=== PATIENT | female | born 1955 | race Caucasian/White ===

== ENCOUNTER → 2022-04-07 10:01 | Outpatient (REF) | payer MEDICARE, OTHER, SELFPAY | LOC: HO.SL 10:01 | PROVIDERS: PCP Internal Medicine; Visit Provider Internal Medicine | DX: Z13.89 Encounter for screening for other disorder (principal) ==

== ENCOUNTER 2022-04-07 10:23 | Outpatient (REF) | payer MEDICARE, OTHER, SELFPAY ==
--- NOTE | ~2022-04-07 | MM_ITS ---
EXAMINATION: MM SCREENING DIGITAL BREAST TOMOSYNTHESIS, BILATERAL CLINICAL INFORMATION: Screening. Asymptomatic. Family history breast cancer, daughter. The lifetime risk of breast cancer based on the Tyrer-Cuzick Model is 8%. COMPARISON: Mammography: 09/13/2016, 05/10/2013 TECHNIQUE: Digital breast tomosynthesis is performed in both the craniocaudal and mediolateral oblique views along with computer-aided detection (CAD). Synthesized 2D images are generated from the tomosynthesis. FINDINGS: The breasts are heterogeneously dense, which may obscure small masses (ACR BI-RADS breast composition Category c). Parenchymal pattern shows no interval mass or architectural abnormality or developing density. There is a dermal lesion overlying the mid upper right breast. No suspicious calcifications. There are chronic loosely grouped calcifications in the 12:00 left breast. No significant changes. MM/MM tomosynthesis screening BI IMPRESSION: No mammographic evidence of malignancy. ASSESSMENT: BI-RADS 2: Benign RECOMMENDATION: Routine annual mammography screening. This patient's information was entered into a reminder system with a target due date for their next mammogram.
--- NOTE | ~2022-04-07 | MM_ITS ---
EXAMINATION: BONE DENSITOMETRY CLINICAL INDICATION: Menopause. COMPARISON: Previous BD dated 08/27/2016 and baseline BD dated 05/10/2013. TECHNIQUE: Using a [employer] DXA System (software version: 13.1) manufactured by [employer], dual-energy x-ray absorptiometry was performed of the lumbar spine and left hip. The images are of good technical quality. Summary results are attached. FINDINGS: AP SPINE L1-L4: Current: BMD 0.801 g/cm2, Z-score -1.2, T-score -3.2, osteoporosis, 6.9% increase from previous, 0.5% decrease from baseline (<5% change is not significant). Prior: BMD 0.749 g/cm2. Baseline: BMD 0.805 g/cm2. LEFT FEMUR, NECK: Current: BMD 0.643 g/cm2, Z-score -1.1, T-score -2.8, osteoporosis. Prior: BMD 0.665 g/cm2. Baseline: BMD 0.667 g/cm2. LEFT FEMUR, TOTAL: Current: BMD 0.621 g/cm2, Z-score -1.6, T-score -3.1, osteoporosis, 1.3% decrease from previous, 4.3% decrease from baseline (<5% change is not significant). Prior: BMD 0.629 g/cm2. Baseline: BMD 0.649 g/cm2. IDENTIFIED RISK FACTORS: Osteoporosis, renal, tobacco use (current smoker), recurrent falls, height loss, low body weight, low calcium intake, history of fracture (adult), menopause. HISTORY OF FRACTURE: Other. MEDICATIONS: Bisphosphonate. MM/XR DEXA axial skeleton IMPRESSION: 1. DIAGNOSIS: Osteoporosis based on the lowest T-score value of -3.2 in the lumbar spine applying World Health Organization criteria. 2. 10-YEAR FRACTURE RISK PREDICTION, FRAX: Major osteoporotic fracture (clinical spine, forearm, hip or shoulder) 24.2%. Hip fracture 10.5%. 3. Treatment Recommendations: NOF guidelines recommend consideration for treatment in postmenopausal women and men age 50 and older presenting with the following: -A hip or vertebral (clinical or morphometric) fracture. -T-score less than or equal to -2.5 at the femoral neck or spine after appropriate evaluation to exclude secondary causes. -Low bone mass at the hip or spine and a 10-year fracture probability by FRAX of greater than or equal to 3% for hip fracture or greater than or equal to 20% for major osteoporotic fracture based on the [place] adapted WHO algorithm. 4. Other Recommendations: All treatment decisions require clinical judgment and consideration of individual patient factors, including patient preferences, comorbidities, previous drug use, risk factors not captured in the FRAX model (e.g. frailty, falls, vitamin D deficiency, increased bone turnover, interval significant decline in bone density) and possible under or overestimation of fracture risk by FRAX. Additional medical evaluation for secondary cause of low bone mineral density may be appropriate. FUTURE SCAN RECOMMENDATION: People with diagnosed cases of osteoporosis or at high risk for fracture should have regular bone mineral density tests. For patients eligible for Medicare, routine testing is allowed once every 2 years. The testing frequency can be increased to one year for patients who have rapidly progressing disease, those who are receiving or discontinuing medical therapy to restore bone mass, or have additional risk factors.
== END 2022-04-07 10:24 | disposition home or self-care (01) ==
LOC: HO.MAMMO 10:23
PROVIDERS: PCP Internal Medicine; Visit Provider Internal Medicine
DX: Z12.31 Encounter for screening mammogram for malignant neoplasm of breast (principal); Z13.820 Encounter for screening for osteoporosis; Z78.0 Asymptomatic menopausal state
CPT/HCPCS: 77063; 77067; 77080

== ENCOUNTER 2023-04-08 10:26 | Outpatient (REF) | payer MEDICARE, SELFPAY ==
--- NOTE | ~2023-04-08 | US_ITS ---
EXAMINATION: US RETROPERITONEAL LIMITED (RENAL ONLY) CLINICAL INFORMATION: Chronic kidney disease, stage 3. COMPARISON: CT abdomen and pelvis 02/20/2018. Renal ultrasound 12/15/2017. TECHNIQUE: Real-time imaging of the kidneys. FINDINGS: RIGHT KIDNEY: 10.2 x 3.9 x 5.8 cm (SAG x AP x TRV). The kidney is normal in size, contour, and echogenicity. Renal cortical thickness is normal. No calculi or focal parenchymal lesions. Pelviectasis without dana hydronephrosis decreased from prior ultrasound. LEFT KIDNEY: 8.6 x 4.1 x 3.6 cm (SAG x AP x TRV). Atrophic and echogenic with cortical thinning. No hydronephrosis. Subcentimeter benign-appearing renal cyst, no follow-up imaging recommended. 5 mm nonobstructing lower pole renal stone previously 3mm. US/US renal BI IMPRESSION: 1. Right renal pelviectasis without dana hydronephrosis decreased from prior ultrasound. 2. Atrophic and echogenic left kidney with cortical thinning which can be seen in the setting of chronic medical renal disease. 3. A 5 mm nonobstructing left lower pole renal stone increased in size from prior recent.
== END 2023-04-08 10:27 | disposition home or self-care (01) ==
LOC: HO.US 10:26
PROVIDERS: PCP Internal Medicine; Visit Provider Internal Medicine Nephrology
DX: N18.32 Chronic kidney disease, stage 3b (principal)
CPT/HCPCS: 76775

== ENCOUNTER 2023-05-03 06:41 | Outpatient (REF) | payer MEDICARE, SELFPAY ==
[2023-05-05 09:39] LABS: Calcium (PTHI) 8.4 mg/dL (8.6-10.4); PTHI 83 pg/mL (16-77)
== END 2023-05-03 06:42 | disposition home or self-care (01) ==
LOC: HO.LAB 06:41
PROVIDERS: PCP Internal Medicine; Visit Provider Internal Medicine Nephrology
DX: I12.9 Hypertensive chronic kidney disease with stage 1 through stage 4 chronic kidney disease, or unspecified chronic kidney disease (principal); N18.32 Chronic kidney disease, stage 3b
CPT/HCPCS: 36415; 80051; 81001; 81003; 82040; 82043; 82306; 82310; 82565; 82570; 83735; 83970; 84100; 84156; 84520; 85025

== ENCOUNTER 2023-05-27 10:20 | Outpatient (REF) | payer MEDICARE, SELFPAY ==
--- NOTE | ~2023-05-27 | XR_ITS ---
EXAMINATION: XR LUMBOSACRAL SPINE CLINICAL INFORMATION: Low back pain radiating to the right gluteal region COMPARISON: None available. TECHNIQUE: Three views of the lumbosacral spine. FINDINGS: The visualized lumbar vertebrae are intact with normal alignment. Intervertebral disc spaces are normal. XR/XR lumbar spine 2-3V IMPRESSION: 1. Normal lumbosacral spine x-ray. 2. No fracture or dislocation of lumbar spine is seen.
== END 2023-05-27 10:21 | disposition home or self-care (01) ==
LOC: HO.HMGCX 10:20
PROVIDERS: PCP Internal Medicine; Visit Provider Internal Medicine
DX: M54.50 Low back pain, unspecified (principal)
CPT/HCPCS: 72100

== ENCOUNTER 2023-10-20 10:16 | Outpatient (REF) | payer MEDICARE, SELFPAY ==
[2023-10-20 10:37] LABS: MANUAL DIFF FLAG NO
[2023-10-20 11:04] LABS: Appearance Urine Cloudy; Color Urine Dark Yellow; Glucose Urine UA Negative (Negative); Leukocyte Esterase Urine Small (1+) (Negative); Nitrite Urine Negative (Negative); PH 6.5 (5.0-9.0); UMIC TRIGGER UA YES; Urine Blood Negative (Negative); Urine Ketones Trace mg/dL (Negative); Urine Protein Negative (Neg-Trace)
[2023-10-20 11:05] LABS: Basophils Absolute Auto 0.1 X10*3/uL (0.0-0.2); Basophils Percent Auto 0.8 % (0-2); Eosinophils Absolute Auto 0.2 X10*3/uL (0.0-0.4); Hematocrit 38.3 % (37.0-47.0); Hemoglobin 12.5 g/dl (12.0-16.0); Imm Gran Abs Auto 0.03 X10*3/uL (0.00-0.03); Imm Gran Pct Auto 0.4 % (0.0-0.4); Lymphocytes Absolute Auto 2.3 X10*3/uL (1.2-4.9); Lymphocytes Percent Auto 31.8 % (20-40); Mean Corpuscular HGB Conc 32.6 g/dl (31.0-35.0); Mean Corpuscular Hemoglobin 30.6 pg (27.0-33.0); Mean Corpuscular Volume 93.9 fL (80.0-98.0); Mean Platelet Volume 8.6 fL (9.4-12.3); Monocytes Absolute Auto 0.6 X10*3/uL (0.1-1.2); Monocytes Percent Auto 7.8 % (2-11); Neutrophils Absolute Auto 4.1 x10*3/uL (2.0-8.3); Neutrophils Percent Auto 56.2 % (45-73); Platelet Count 263 X10*3/uL (160-400); Red Blood Count 4.08 X10*6/uL (4.20-5.50); Red Cell Distribution Width 14.4 % (11.0-16.0); White Blood Count 7.3 X10*3/uL (4.8-10.8)
[2023-10-20 11:22] LABS: Bacteria Urine 1+ (None Seen); Hyaline Casts Urine 0-2 /LPF (0-2); RBC Urine 0-2 /HPF (0-2); WBC Urine 0-5 /HPF (0-5)
[2023-10-20 11:39] LABS: Creatinine Urine 127.18 mg/dL; Microalbum/Creatinine Ratio Ur 5.5 ug/mg cr (<30); Total Protein Urine Random 11 mg/dL (<12)
[2023-10-20 11:45] LABS: Parathyroid Hormone Intact 78.8 pg/mL (8.7-77.1)
[2023-10-20 11:50] LABS: Albumin Level 3.8 g/dL (3.5-5.0); Anion Gap 12 (12-20); Blood Urea Nitrogen 15 mg/dL (9-16); Carbon Dioxide 28 mmol/L (22-29); Chloride 107 mmol/L (96-108); Estimated Glomerular Filt Rate 41; Magnesium 2.2 mg/dL (1.6-2.6); Phosphorus 3.2 mg/dL (2.7-4.5); Potassium 4.5 mmol/L (3.3-5.1); Sodium 142 mmol/L (135-145)
[2023-10-20 11:59] LABS: Vitamin D 25-OH Total 33.8 ng/mL (>30)
== END 2023-10-20 10:17 | disposition home or self-care (01) ==
LOC: HO.LAB 10:16
PROVIDERS: PCP Internal Medicine; Visit Provider Internal Medicine Nephrology
DX: I13.0 Hypertensive heart and chronic kidney disease with heart failure and stage 1 through stage 4 chronic kidney disease, or unspecified chronic kidney disease (principal); I50.9 Heart failure, unspecified; N25.0 Renal osteodystrophy; N18.32 Chronic kidney disease, stage 3b
CPT/HCPCS: 36415; 80051; 81001; 81003; 82040; 82043; 82306; 82310; 82565; 82570; 83735; 83970; 84100; 84156; 84520; 85025

== ENCOUNTER 2024-04-27 08:28 | Outpatient (REF) | payer MEDICARE, SELFPAY ==
--- NOTE | ~2024-04-27 | XR_ITS ---
EXAMINATION: XR HIP RIGHT 2 VIEWS CLINICAL INFORMATION: Right hip pain. COMPARISON: CT Abdomen pelvis without contrast 02/20/2018 TECHNIQUE: Two views of the right hip. FINDINGS: No fracture identified. Alignment is anatomic. Hip joint space appears maintained. Soft tissues appear unremarkable. Mild arterial calcification. XR/XR hip RT min 2V IMPRESSION: Normal plain film examination of the right hip. Electronically signed by: Ja Sparrow MD 07/09/2024 10:08 AM [facility]
== END 2024-04-27 08:29 | disposition home or self-care (01) ==
LOC: HO.HMGCX 08:28
PROVIDERS: PCP Internal Medicine; Visit Provider Internal Medicine
DX: M25.551 Pain in right hip (principal)
CPT/HCPCS: 73502

== ENCOUNTER 2024-06-28 16:24 | Emergency (ER) | payer MEDICARE, SELFPAY ==
--- NOTE | ~2024-06-28 | XR_ITS ---
EXAMINATION: XR FOREARM, LEFT CLINICAL INFORMATION: deformity. fall COMPARISON: None available. TECHNIQUE: AP and lateral views of the left forearm were obtained. FINDINGS / XR/XR forearm LT 2V IMPRESSION: There is an impacted, comminuted transversely oriented fracture involving the distal radius. The radiocarpal joint appears maintained on these 2 views. No additional fracture is seen. There is mild soft tissue swelling. Electronically signed by: Speedy Oscar DO 06/28/2024 07:27 PM [facility] D[facility]N
--- NOTE | ~2024-06-28 | XR_ITS ---
EXAMINATION: XR WRIST, LEFT CLINICAL INFORMATION: post reduction COMPARISON: Wrist x-ray on 06/28/2024 TECHNIQUE: PA, lateral, and oblique views of the left wrist. FINDINGS: Interval reduction and casting of the distal radius fracture. Alignment is moderately improved. Casting material limits evaluation. XR/XR wrist LT 2V IMPRESSION: Interval reduction and casting of the distal radius fracture. Electronically signed by: Elinor Gallardo MD 06/28/2024 08:54 PM [facility]
--- NOTE | ~2024-06-28 | XR_ITS ---
EXAMINATION: XR WRIST, LEFT CLINICAL INFORMATION: fall. deformity COMPARISON: None available. TECHNIQUE: Four views of the left wrist. FINDINGS / XR/XR wrist LT min 3V IMPRESSION: There is a comminuted, mildly impacted transversely oriented fracture involving the distal radius. The distal fracture fragment is dorsally angulated in relation to the proximal fracture fragment. In addition there is a nondisplaced fracture involving the ulnar styloid. The osseous structures are diffusely demineralized. There is soft tissue swelling. Electronically signed by: Speedy Oscar DO 06/28/2024 07:29 PM EST
[2024-06-28 16:28] VITALS: BP 152/91; BP 161/94; PULSE 80; PULSE 85; RESP 16; TEMP 37; O2SAT 93; O2SAT 96; BMI 22.6
--- NOTE | 2024-06-28 17:30 | ED_ITS ---
HPI - Fall General Chief Complaint: Fall Stated Complaint: fall, L wrist deformity Time Seen by Provider: 06/28/24 17:10 Source: patient, family, EMS, RN notes reviewed and old records reviewed Mode of arrival: EMS History of Present Illness ED Provider: Pushpa Guerrero PA-C HPI Narrative: 68-year-old female with past medical history HTN, HLD, arthritis, bipolar, presenting to the ED via EMS complaining of left wrist pain and deformity s/p mechanical trip and fall at 02:00 at home. Patient states she was trying to get a snack, was opening a peanut butter and jelly cracker however Shantal got away from her causing her to slip and fall, catching self with LUE. Denies head trauma or LOC. denies anticoagulation use. Patient was unable to pull herself up off the floor due to wrist pain, was on floor from 02:00 until about 15:00 this afternoon. Patient lives home alone. Daughter concerned patient is over- medicating w/her Ambien and Melatonin to aid with sleeping which has been going on for some time. Patient with multiple falls recently per daughter. Denies headache, neck/back pain, CP/SOB, abdominal pain, numbness, tingling, weakness. Related Data Previous Rx's ?Medication ?Instructions ?Recorded oxycodone-acetaminophen 5 mg-325 1 tab PO Q8H PRN pain (scale score 06/28/24 mg tablet (Percocet) 7-10) 3 days #9 tabs Allergies Allergy/AdvReac Type Severity Reaction Status Date / Time No Known Allergies Allergy Unverified 06/28/24 16:35 Review of Systems 2 Review of Systems: Yes all other systems are reviewed and are negative Constitutional: Constitutional: Reports as per HPI Neurologic: Denies Abnormal speech present [facility] Past Medical History Attestation statement: The following information was validated with the patient. Source: old records reviewed Social History Social History Alcohol intake: former Smoked in Last 30 Days: Yes Use of substances other than those prescribed or required for medical reasons: No Advance Directives: No Advance Directives Information Provided: No Do you have a plan to hurt others: No Plan Physical Exam 2 Vital Signs: Vital Signs: Last Vital Signs Temp 98.6 F 06/28/24 16:28 Pulse 85 12/05/24 16:28 Resp 18 06/28/24 17:59 BP 152/91 H 06/28/24 16:28 Pulse Ox 93 06/28/24 16:28 O2 Del Method Room Air 06/28/24 16:28 BMI result Body Mass Index 22.6 Const: General: cooperative, healthy appearing and no acute distress O rientation/consciousness: patient oriented x3 Limitations: no limitations HEENT: Head: Yes normal to inspection and Yes atraumatic Ears: hearing grossly normal bilaterally General nose exam: Normal external nose present Face and sinus: Yes normal facial exam Eyes: General: appearance normal, both eyes and all related structures EOM: EOMs intact bilaterally Neck: Neck: Yes normal visual inspection and Yes no meningeal signs Resp: Effort & Inspection: normal respiratory effort and no respiratory distress Cardio: Rate: regular rate Peripheral pulses: Peripheral pulses 2+ throughout GI: Inspection: Yes normal to inspection Palpation (GI): Soft to palpation, nontender, no guarding and not rigid : General: Yes no CVA tenderness Back/Spine/Pelvis: Other: No midline cervical/thoracic/lumbar spinous tenderness/step-off or deformity Back: no CVA tenderness Skin: Rashes: no rashes Wounds: no wounds Neuro: General: patient oriented x3, tone normal, moves all extremities, no meningeal signs, no focal motor deficits and CN's II-XI intact bilaterally C ranial nerves: Yes CN's II-XII intact bilaterally and Yes Bilaterally intact EOM present Cognition (Neuro): normal cognition Speech: No Abnormal speech present Motor exam (neuro): 5/5 motor strength present throughout Extrem: Other: Left wrist with appreciable deformity. Swelling and ecchymosis noted to left forearm extending to hand. Limited ROM to extremity. Neurovascularly intact. Course Course Course Narrative: -1945--no leukocytosis. H/H is stable. Labs otherwise reassuring. CPK WNL XR wrist LT min 3V: There is a comminuted, mildly impacted transversely oriented fracture involving the distal radius. The distal fracture fragment is dorsally angulated in relation to the proximal fracture fragment. In addition there is a nondisplaced fracture involving the ulnar styloid. The osseous structures are diffusely demineralized. There is soft tissue swelling. XR forearm LT 2V IMPRESSION: There is an impacted, comminuted transversely oriented fracture involving the distal radius. The radiocarpal joint appears maintained on these 2 views. No additional fracture is seen. There is mild soft tissue swelling. > hematoma block performed and reduction attempted. Sugar-tong splint applied and sling XR wrist LT 2V IMPRESSION: Interval reduction and casting of the distal radius fracture. > offered PT/case management however patient not agreeable. States she will go live with her sister who will help her. Daughters comfortable with plan --ED care transferred to [facility] pending UA and anticipated discharge Medications Administered Discontinued Medications Generic Name Dose Route Start Last Admin Trade Name Freq PRN Reason Stop Dose Admin Fentanyl 25 mcg 06/28/24 17:29 06/28/24 17:59 Fentanyl Citrate/Pf 100 Mcg/2 Ml Vial IVPUSH 06/28/24 17:30 25 mcg ONCE ONE Administration Protocol Sodium Chloride 1,000 mls @ 999 mls/hr 06/28/24 17:30 06/28/24 19:20 Ns IV 06/28/24 18:30 Infused .Q1H1M IMAN Infusion Lidocaine HCl 5 ml 06/28/24 19:16 06/28/24 20:35 Lidocaine Hcl 1 % Mpf 5 Ml Vial INFILTRATI 06/28/24 19:17 5 ml ONCE ONE Administration Oxycodone HCl 5 mg 06/28/24 20:46 06/28/24 20:59 Oxycodone Hcl Immed Release 5 Mg Tablet PO 06/28/24 20:47 5 mg ONCE ONE Administration Procedures Orthopedic Fracture Reduction Fracture #1: Side: left Fracture Reduction Location: radius and ulna Analgesia: hematoma block Technique: direct manipulation and traction/counter-traction Post-reduction neuro exam: intact Post-reduction vascular exam: intact Splint Applied: Yes Patient Tolerated Procedure: well Medical Decision Making Medical Decision Making MDM Narrative: 68-year-old female with past medical history HTN, HLD, arthritis, bipolar, presenting to the ED via EMS complaining of left wrist pain and deformity s/p mechanical trip and fall at 02:00 at home was on floor from 02:00 until about 15:00 this afternoon. On exam vital signs stable, NAD, physical exam as noted above with appreciable left wrist deformity. No midline spinous tenderness throughout. No red flag symptoms or focal neuro deficits. Concern for wrist fracture vs rhabdomyolysis vs metabolic abnormalities. Rule out infectious etiology although lower suspicion. Concern for medication miss use/overuse Plan: EKG, labs, tox screen, x-ray, ?PT/CM if patient agreeable Please refer to course for remaining clinical decision making, interpretation of labs/imaging results, and discussions with consultants and/or family members. Differential Diagnosis Differential Diagnoses: The differential diagnosis associated with the presentation includes As above Admission/Observation Consideration of admission/observation: Escalation of care including admission/observation considered Lab Data MDM Lab Attestation statement: I reviewed the patient's lab results. 06/28/24 17:56 06/28/24 17:56 Labs: Lab Results 06/28/24 Range/Units 17:56 WBC 10.3 (4.8-10.8) X10*3/uL RBC 3.83 L (4.20-5.50) X10*6/uL Hgb 11.8 L (12.0-16.0) g/dl Hct 34.6 L (37.0-47.0) % MCV 90.3 (80.0-98.0) fL MCH 30.8 (27.0-33.0) pg MCHC 34.1 (31.0-35.0) g/dl RDW 13.0 (11.0-16.0) % Plt Count 224 (160-400) X10*3/uL MPV 8.7 L (9.4-12.3) fL Immature Gran % (Auto) 0.3 (0.0-0.4) % Neut % (Auto) 73.8 H (45-73) % Lymph % (Auto) 15.3 L (20-40) % Stone % (Auto) 9.0 (2-11) % Eos % (Auto) 1.0 (0-4) % Baso % (Auto) 0.6 (0-2) % Lymph # (Auto) 1.6 (1.2-4.9) X10*3/uL Stone # (Auto) 0.9 (0.1-1.2) X10*3/uL Eos # (Auto) 0.1 (0.0-0.4) X10*3/uL Baso # (Auto) 0.1 (0.0-0.2) X10*3/uL Abs Immat Gran (auto) 0.03 (0.00-0.03) X10*3/uL Absolute Neuts (auto) 7.6 (2.0-8.3) x10*3/uL Absolute Nucleated RBC 0.000 (0.0-0.012) X10*3/uL Nucleated RBC % (auto) 0.0 (0.0-0.2) /100WBC PT 11.3 (10.9-12.4) SEC INR 1.0 (0.9-1.1) Sodium 139 (135-145) mmol/L Potassium 3.7 (3.3-5.1) mmol/L Chloride 105 (96-108) mmol/L Carbon Dioxide 28 (22-29) mmol/L Anion Gap 10 L (12-20) BUN 9 (9-16) mg/dL Creatinine 1.13 (0.5-1.4) mg/dL Estim Creat Clear Calc 45.2 Estimated GFR 48 Random Glucose 117 H (60-115) mg/dL Calcium 8.6 (8.4-10.2) mg/dL Magnesium 2.0 (1.6-2.6) mg/dL Total Bilirubin 0.4 (0.0-1.0) mg/dL Direct Bilirubin 0.2 (0.0-0.5) mg/dL AST 15 (5-31) U/L ALT 6 (0-31) U/L Alkaline Phosphatase 76 (39-117) U/L Total Creatine Kinase 137 (26-140) U/L Total Protein 6.4 L (6.5-8.0) g/dL Albumin 3.7 (3.5-5.0) g/dL Ethyl Alcohol < 10 mg/dL Independent Interpretation I performed an independent interpretation of an: EKG and Plain X-Ray Radiology Impression Discussion of test interpretation with radiology: I have reviewed the radiologist's reading. Independent Historian Clinical information obtained from an independent historian. History obtained from or confirmed by: EMS and Other (daughter) External Record Review External record reviewed: Inpatient record, Office record, Outpatient record, Prior outpatient labs, Prior outpatient radiology, Primary care record and Outside ED record Tests considered The following testing was considered but not selected: As above Prescription Management I considered prescription management with: Other Chronic Conditions Patient?s care impacted by: Other Social Determinants Patient?s care significantly limited by Social Determinants of Health including: Problems related to primary support group and Other Social Determinant of Health Discharge Plan Discharge Clinical Impression: Fracture of wrist, Fall Patient Disposition: Home, Self-Care Instructions: Wrist Fracture in Adults (ED) Additional Instructions: You have a fracture of your left wrist, this was reduced and splinted in the emergency department You need to follow up with Orthopedics, please call to make an appointment in 1 week Use sling Ice and elevate Percocet as an opiate pain medication, take only when pain is severe for the next 3 days If you have recurrent falls, persistent or worsening pain, fingers become increasingly swollen, numb, discolored remove splint and return to the ED immediately Prescriptions: New oxycodone-acetaminophen [Percocet] 5-325 mg tablet 1 tab PO Q8H PRN (Reason: pain (scale score 7-10)) 3 Days Qty: 9 0RF Rx Instructions: Partial Fill upon patient request. Referrals: [facility] [place] Orth[facility] Surgeons [Provider Group] - 1 week Print Language: Guamanian
--- NOTE | 2024-06-28 17:38 | ECG_ITS ---
Test Reason : fall Blood Pressure : / mmHG Vent. Rate : 079 BPM Atrial Rate : 079 BPM P-R Int : 132 ms QRS Dur : 090 ms QT Int : 396 ms P-R-T Axes : 076 062 031 degrees QTc Int : 454 ms Normal sinus rhythm Normal ECG When compared with ECG of 14-MAY-2019 21:42, Nonspecific T wave abnormality now evident in Inferior leads Referred By: Pushpa Guerrero Electronically Signed By:Blue Rhodes
[2024-06-28 17:59] VITALS: RESP 18
[2024-06-28] MEDS: fentaNYL citrate/PF 100 MCG/2 ML VIAL 25 MCG IVPUSH (17:59)
[2024-06-28] MEDS: 0.9 % Sodium Chloride 1,000 ML 999 ML IV (18:00)
[2024-06-28 18:02] LABS: MANUAL DIFF FLAG NO
[2024-06-28 18:06] LABS: Basophils Absolute Auto 0.1 X10*3/uL (0.0-0.2); Basophils Percent Auto 0.6 % (0-2); Eosinophils Absolute Auto 0.1 X10*3/uL (0.0-0.4); Hematocrit 34.6 % (37.0-47.0); Hemoglobin 11.8 g/dl (12.0-16.0); Imm Gran Abs Auto 0.03 X10*3/uL (0.00-0.03); Imm Gran Pct Auto 0.3 % (0.0-0.4); Lymphocytes Absolute Auto 1.6 X10*3/uL (1.2-4.9); Lymphocytes Percent Auto 15.3 % (20-40); Mean Corpuscular HGB Conc 34.1 g/dl (31.0-35.0); Mean Corpuscular Hemoglobin 30.8 pg (27.0-33.0); Mean Corpuscular Volume 90.3 fL (80.0-98.0); Mean Platelet Volume 8.7 fL (9.4-12.3); Monocytes Absolute Auto 0.9 X10*3/uL (0.1-1.2); Neutrophils Absolute Auto 7.6 x10*3/uL (2.0-8.3); Neutrophils Percent Auto 73.8 % (45-73); Platelet Count 224 X10*3/uL (160-400); Red Blood Count 3.83 X10*6/uL (4.20-5.50); White Blood Count 10.3 X10*3/uL (4.8-10.8)
[2024-06-28 18:13] LABS: Prothrombin Time 11.3 SEC (10.9-12.4)
[2024-06-28 18:28] LABS: Alanine Aminotransferase 6 U/L (0-31); Albumin Level 3.7 g/dL (3.5-5.0); Alkaline Phosphatase 76 U/L (39-117); Anion Gap 10 (12-20); Aspartate Amino Transferase 15 U/L (5-31); Bilirubin Direct 0.2 mg/dL (0.0-0.5); Bilirubin Total 0.4 mg/dL (0.0-1.0); Blood Urea Nitrogen 9 mg/dL (9-16); Calcium 8.6 mg/dL (8.4-10.2); Carbon Dioxide 28 mmol/L (22-29); Chloride 105 mmol/L (96-108); Creatinine Clr Calc Pharmacy 45.2; Estimated Glomerular Filt Rate 48; Ethanol < 10 mg/dL; Glucose Random 117 mg/dL (60-115); Potassium 3.7 mmol/L (3.3-5.1); Sodium 139 mmol/L (135-145); Total Protein 6.4 g/dL (6.5-8.0)
--- NOTE | 2024-06-28 19:57 | MHC.EDTECH ---
This tech assisted TREY Barrow when applying sugar tong splint to left wrist. With orders from TREY, sling was provided and placed on pt with excellent tolerance.
[2024-06-28] MEDS: Lidocaine HCl 1 % MPF 5 ML VIAL INFILTRATI (20:35)
[2024-06-28] MEDS: oxyCODONE HCl Immed Release 5 MG TABLET PO (20:59)
[2024-06-28 21:50] LABS: Appearance Urine Clear; Color Urine Yellow; Glucose Urine UA Negative (Negative); Leukocyte Esterase Urine Trace (Negative); Nitrite Urine Negative (Negative); Specific Gravity - Urine <= 1.005 (1.005-1.025); UMIC TRIGGER UACC YES; Urine Blood Small (1+) (Negative); Urine Ketones Negative (Negative); Urine Protein Negative (Neg-Trace)
[2024-06-28 22:01] LABS: Bacteria Urine None Seen (None Seen); Hyaline Casts Urine 0-2 /LPF (0-2); Squamous Epithelial Cell Urine 0-2 /HPF (0-2); WBC Urine 0-5 /HPF (0-5)
[2024-06-28 22:06] LABS: Amphetamine Screen Urine Not Detected (Not Detect); Barbiturates, Urine Not Detected (Not Detect); Benzodiazepines Screen Urine Not Detected (Not Detect); Buprenorphine Scr Not Detected (Not Detect); Cannabinoid Screen Urine Not Detected (Not Detect); Cocaine Screen Urine Not Detected (Not Detect); Fentanyl, urine POSITIVE (Not Detect); Methadone Screen, Urine Not Detected (Not Detect); Opiate Screen Urine Not Detected (Not Detect); Oxycodone Screen Urine Not Detected (Not Detect); Phencyclidine Screen Urine Not Detected (Not Detect)
[2024-06-28 22:52] VITALS: BP 179/67; PULSE 81; RESP 16; TEMP 36.6; O2SAT 93
== END 2024-06-28 22:35 | disposition home or self-care (01) ==
PROVIDERS: Physician Assistant; Emergency Provider Emergency Medicine; PCP Internal Medicine
DX: S62.102A Fracture of unspecified carpal bone, left wrist, initial encounter for closed fracture (principal); M25.532 Pain in left wrist; M79.632 Pain in left forearm; R11.0 Nausea; I10 Essential (primary) hypertension; W01.0XXA Fall on same level from slipping, tripping and stumbling without subsequent striking against object, initial encounter; Y93.9 Activity, unspecified; Y92.098 Other place in other non-institutional residence as the place of occurrence of the external cause; Y99.8 Other external cause status; Z51.81 Encounter for therapeutic drug level monitoring; Z79.899 Other long term (current) drug therapy
CPT/HCPCS: 29125; 36415; 73090; 73100; 73110; 80048; 80076; 80307; 81001; 82550; 83735; 85025; 85610; 93005; 96361; 96374; 99284; 99285; J2003; J3010

== ENCOUNTER → 2024-06-28 17:38 | Outpatient (BNV) | payer MEDICARE, SELFPAY | PROVIDERS: Emergency Provider Emergency Medicine; PCP Internal Medicine; Visit Provider Internal Medicine Cardiovascular Disease | DX: R26.81 Unsteadiness on feet (principal) | CPT/HCPCS: 93010 ==

== ENCOUNTER 2024-07-03 09:16 | Outpatient (REF) | payer MEDICARE, SELFPAY ==
--- NOTE | ~2024-07-03 | XR_ITS ---
EXAMINATION: XR WRIST LEFT CLINICAL INFORMATION: Pain in left wrist M25.532. COMPARISON: XR Left wrist 06/28/2024 TECHNIQUE: PA, lateral, and oblique views of the left wrist. FINDINGS: Casting material limits evaluation.. Redemonstrated distal radial fracture, with similar position and alignment. There appears to be callus formation. Ulnar positive variance. No new acute fractures identified. XR/XR wrist LT min 3V IMPRESSION: Distal radial fracture with apparent callus formation. Study is assigned/presented to me for interpretation on Aug 09, 2024 Electronically signed by: Juan Goodman MD 08/09/2024 09:25 AM L[facility]
== END 2024-07-03 09:17 | disposition home or self-care (01) ==
LOC: HO.HOSX 09:16
PROVIDERS: Visit Provider Orthopaedic Surgery
DX: M25.532 Pain in left wrist (principal); S52.502D Unspecified fracture of the lower end of left radius, subsequent encounter for closed fracture with routine healing; S52.615D Nondisplaced fracture of left ulna styloid process, subsequent encounter for closed fracture with routine healing
CPT/HCPCS: 73110; 99202

== ENCOUNTER 2024-07-03 09:47 | Outpatient (AMB) | payer MEDICARE, SELFPAY ==
--- NOTE | 2024-07-03 09:57 | MHC.OFFVIS ---
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 Seen in ED on 06/28/24 s/p tripping and falling at home. As per ED noted patient was trying to get a snack, was opening a peanut butter and jelly cracker and slipped on the cracker wrapper causing her to slip and fall, catching self with LUE. Patient was unable to pull herself up off the floor due to wrist pain. Xrays taken in ED, reduced and hand was splinted. Currently states she has mild pain, bruising and swelling. Denies numbness or tingling. Hx of HTN, HLD, arthritis, bipolar. 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 She was seen in the ED where this was reduced & splinted. 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 She lives alone, but currently is residing with her sister after her fall. She presents today with complaints of some pain in her wrist. She denies any numbness or tingling She is seen in a Sugar-tong splint today, extending past her MCP joints She has a Hx of arthritis & bipolar disorder. She reports issues with her kidney function and says this is managed by a feeder/folder. She says she takes Ambien, trazodone, Hydroxyzine, and Melatonin at night due to insomnia. She says these were prescribed by her Psychiatrist, and her PCP is aware of what she is taking. 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 Review of Systems Const All systems reviewed & are unremarkable except as noted in HPI and below Physical Exam Vital Signs: BMI result Body Mass Index 22.6 Const General: cooperative, healthy appearing and no acute distress Orientation/consciousness: patient oriented x3 HEENT Head: Yes normocephalic and Yes atraumatic Eyes EOM: EOMs intact bilaterally Resp Effort & Inspection: normal respiratory effort and able to speak in complete sentences Cardio Jugular venous distension: no JVD Skin General skin exam: turgor normal Rashes: no rashes Neuro General: patient oriented x3 Extrem Other: Evaluation of Left Upper Extremity: The patient is alert, oriented, and in no acute distress She is in her sugar-tong splint which is clean dry and intact. Neuro: Sensation intact to the tips of all digits. Vascular: Cap refill brisk ROM: She can actively flex and extend her fingers in the sugar-tong splint which appears to extend past the MCP joints. Radiographs: 3 views of the left wrist were taken, viewed, and compared to post-reduction radiographs from 06/28/24. They show a distal radius fracture with ~35 degrees apex volar angulation, shortening, and loss of radial inclination. She also has a non-displaced ulnar styloid fracture. Psych Appearance: grossly normal Affect: normal affect Attitude: cooperative Assessment & Plan Assessment & Plan (1) Fracture of left distal radius: Code(s): S52.502A - Unspecified fracture of the lower end of left radius, initial encounter for closed fracture Category: Medical (2) Nondisplaced fracture of styloid process of left ulna: Code(s): S52.615A - Nondisplaced fracture of left ulna styloid process, initial encounter for closed fracture Category: Medical Plan Assessment & Plan: 1. Left distal radius fracture From a fall, DOI: 06/28/24 2. Left ulnar styloid fracture, non-displaced I educated her about this condition I discussed operative and non-operative treatment options I recommend surgery, and she is in agreement She will remain in her sugar-tong splint until her DOS. The risks and benefits of operative treatment were discussed with the patient and the patient wishes to proceed with surgery. These risks include, but are not limited to risk of damage to blood vessels, nerves, tendons, infection, recurrence, incomplete relief of preoperative symptoms, persistent pain, possible need for further surgery and the risks associated with regional blocks and anesthesia. The plan is to take the patient to the operating room sometime on 07/09/24 for the following procedures: 1. Left distal radius ORIF, under general All of the preoperative paperwork including the consent was reviewed today. All the patient's questions were answered. The patient understands that they will be contacted by our yield clerk soon to schedule this procedure She denies Diabetes, blood thinners, asthma, heart, lung issues She has a Hx of Bipolar disorder, and she says she currently has ~40% kidney function, etiology unclear. She follows with Nephrology for this, and is unable to use NSAIDs. Scribed for Kati Templeton MD by Rafael Contreras, medical radiation therapist, on 07/03/24 at 10:30 AM, EST. Orders: Orders XR wrist LT min 3V Today M25.532 - Pain in left wrist Coding Level of Care Code New Pt Level 4 (67774) Diagnoses Fracture of left distal radius S52.502A Nondisplaced fracture of styloid process of left ulna S52.615A
[2024-07-03 10:00] VITALS: BMI 22.6
== END 2024-07-03 10:43 | disposition home or self-care (01) ==
PROVIDERS: PCP Internal Medicine; Visit Provider Orthopaedic Surgery
DX: S52.502A Unspecified fracture of the lower end of left radius, initial encounter for closed fracture (principal); S52.615A Nondisplaced fracture of left ulna styloid process, initial encounter for closed fracture
CPT/HCPCS: 99204

== ENCOUNTER 2024-07-09 10:59 | Day surgery (SDC) | payer MEDICARE, SELFPAY ==
[2024-07-06 06:20] VITALS: BMI 22.6
[2024-07-09] VITALS (8 sets, daily range): BP systolic 138–158; BP diastolic 64–78; PULSE 68–86; RESP 16–18; TEMP 36.4–37.3; O2SAT 94–99
[2024-07-09] MEDS: Lactated Ringers 1,000 ML 100 ML IVCONT (11:28)
[2024-07-09] MEDS: Albuterol Sulfate (0.083%) 2.5 MG/3 ML VIAL.NEB INHALE (12:00)
--- NOTE | 2024-07-09 12:10 | P.CONAN_ITS ---
Documented by User: Michelle Smith NP 07/05/24 14:30 HPI - Anesthesia Eval Consult details Narrative: 68yo F for Left Radius Distal Fracture ORIF PMFSH Active Problems Active Problems: All Active Problems (Updated 07/03/24 @ 10:32 by Rafael Contreras) Nondisplaced fracture of styloid process of left ulna (Acute) Fracture of left distal radius (Acute) Past Medical History Medical History (Updated 07/05/24 @ 14:29 by Michelle Smith NP) Bipolar disorder Arthritis HLD (hyperlipidemia) HTN (hypertension) Surgical History Surgical History (Updated 07/09/24 @ 11:29 by Padmini Brandt RN) Hx of hernia repair Hx of colonoscopy Social History Social History (Updated 07/03/24 @ 10:27 by NAA Acosta) Alcohol intake: former Patient Tobacco Use Status: Current everyday Tobacco user Have you been hit, kicked, punched, or otherwise hurt by someone within the past year? 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 Meds Allergies Allergy/AdvReac Type Severity Reaction Status Date / Time No Known Allergies Allergy Unverified 07/03/24 10:26 Home Medications ?Medication ?Instructions ?Recorded ?Confirmed ?Last Taken ?Type bupropion HCl 300 mg 24 hr tablet, 300 mg PO QAM 07/06/24 07/08/24 History extended release escitalopram oxalate 20 mg tablet 20 mg PO BEDTIME 07/06/24 07/08/24 History alendronate 70 mg tablet 70 mg PO QWEEK 07/09/24 07/09/24 Unknown History hydroxyzine HCl 50 mg tablet 50 mg PO BEDTIME PRN Pain (Scale 07/09/24 07/09/24 07/08/24 History Score 4-6) lurasidone 40 mg tablet 40 mg PO QPM 07/09/24 07/09/24 07/08/24 History omeprazole 20 mg capsule,delayed 20 mg PO DAILY 07/09/24 07/09/24 07/08/24 History release simvastatin 20 mg tablet 20 mg PO BEDTIME 07/09/24 07/09/24 07/08/24 History tramadol 50 mg tablet 50 mg PO BID PRN Pain (Scale Score 12/07/09/24 07/08/24 History 4-6) zolpidem 10 mg tablet 10 mg PO BEDTIME PRN Sleep 07/09/24 07/09/24 07/08/24 History Exam Pertinent Lab Results Pertinent Lab Results: Laboratory Tests 06/28/24 17:56 WBC 10.3 Hgb 11.8 L Hct 34.6 L Plt Count 224 Sodium 139 Potassium 3.7 Chloride 105 Carbon Dioxide 28 BUN 9 Creatinine 1.13 Narrative Narrative: EKG 06/2024 Vent. Rate : 079 BPM Atrial Rate : 079 BPM P-R Int : 132 ms QRS Dur : 090 ms QT Int : 396 ms P-R-T Axes : 076 062 031 degrees QTc Int : 454 ms Normal sinus rhythm Normal ECG When compared with ECG of 14-MAY-2019 21:42, Nonspecific T wave abnormality now evident in Inferior leads Assessment and Plan Assessment Anesthesia Assessment: Chart Reviewed Documented by User: Nneka Bahena DO 07/09/24 12:11 HPI - Anesthesia Eval Consult details Narrative: 68yo F for Left Radius Distal Fracture ORIF. Smoker. [facility] Past Medical History Medical History (Updated 07/05/24 @ 14:29 by Michelle Smith NP) Bipolar disorder Arthritis HLD (hyperlipidemia) HTN (hypertension) Family History Family history of problems with anesthesia: No Surgical History Surgical History (Updated 07/09/24 @ 11:29 by Padmini Brandt RN) Hx of hernia repair Hx of colonoscopy History of Problems with Anesthesia: No Social History Social History (Updated 07/03/24 @ 10:27 by NAA Acosta) Alcohol intake: former Patient Tobacco Use Status: Current everyday Tobacco user Have you been hit, kicked, punched, or otherwise hurt by someone within the past year? 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 Meds Allergies Allergy/AdvReac Type Severity Reaction Status Date / Time No Known Allergies Allergy Unverified 07/03/24 10:26 Home Medications ?Medication ?Instructions ?Recorded ?Confirmed ?Last Taken ?Type bupropion HCl 300 mg 24 hr tablet, 300 mg PO QAM 07/06/24 07/08/24 History extended release escitalopram oxalate 20 mg tablet 20 mg PO BEDTIME 07/06/24 07/08/24 History alendronate 70 mg tablet 70 mg PO QWEEK 07/09/24 07/09/24 Unknown History hydroxyzine HCl 50 mg tablet 50 mg PO BEDTIME PRN Pain (Scale 07/09/24 07/09/24 07/08/24 History Score 4-6) lurasidone 40 mg tablet 40 mg PO QPM 07/09/24 07/09/24 07/08/24 History omeprazole 20 mg capsule,delayed 20 mg PO DAILY 07/09/24 07/09/24 07/08/24 History release simvastatin 20 mg tablet 20 mg PO BEDTIME 07/09/24 07/09/24 07/08/24 History tramadol 50 mg tablet 50 mg PO BID PRN Pain (Scale Score 07/09/24 07/09/24 07/08/24 History 4-6) zolpidem 10 mg tablet 10 mg PO BEDTIME PRN Sleep 07/09/24 07/09/24 07/08/24 History Exam Exam Date and Time: 07/09/24 1210 Airway Mallampati Class: II TM Dist: >3cm Neck ROM: Full Loose/Missing/Broken Teeth: Yes (Edentulous top jaw; missing and broken teeth bottom jaw) Heart: S1S2 Lungs: CTAB Assessment and Plan Assessment Anesthesia Assessment: Anesthesia Plan Discussed and Chart Reviewed Final Anesthetic Review Family History of Problems with Anesthesia: No History of Problems with Anesthesia: No NPO: Yes ASA Class: II Final Preanesthetic Review: No Changes in Pt Med Stat, Meds/Allgs Chart Reviewed, Consent Obtained/Reviewed and Anes Risks/Benef Reviewed Patient Risk: Low Procedure Risk: Low Anesthetic Plan Anesthetic Plan: GA, Regional Block (left brachial plexus block) and Agree w/ Assess. and Plan Disposition: Standard PACU
--- NOTE | 2024-07-09 12:47 | MHC.SHP ---
Pre-Procedural Eval Section A - 24 Hr Update-Section A only Date of Service: 07/09/24 The patient is an INPATIENT: No Changes since office visit: No Cold of Flu in the past 2 weeks, No New Medical Problems, No Changes in Medication and No Patient answered all questions The patient has been examined within 24 hours of the surgical procedure. The History & Physical has been completed within 30 days and I have reviewed it.: Yes Section B - Complete if H&P > 30 days Chief Complaint: Unspecified f left distal radius fracture Allergies: Allergies Allergy/AdvReac Type Severity Reaction Status Date / Time No Known Allergies Allergy Unverified 07/03/24 10:26 Plan I have reviewed the history and physical and performed a pertinent physical examination on my patient. No changes have occurred unless specified. Time Spent With Patient Time: Total time managing care of this patient today ____ minutes.
--- NOTE | 2024-07-09 12:47 | W.PM.OPN ---
Operative Note Operative Note Date of Service: 07/09/24 Narrative: Operative Note Narrative: Preop diagnosis: 1. Left Distal radius fracture Postop diagnosis: Same Procedure: 1. Left Distal radius fracture open reduction internal fixation Surgeon: Kati Templeton MD Celebrity Manager: None Anesthesia: General anesthesia plus regional block Findings: Extra-articular distal radius fracture Implants: A 3 hole Accu Med volar locking plate, with 4 X 2.3 mm locking pegs/screws, and 3 3.5 mm cortical screws Tourniquet time: 29 minutes EBL: 5.0 ml Specimen: None Drains: None Complications: None Disposition: Brought to the recovery room in stable condition Plan: Follow-up in 10-14 days for wound check, suture removal and postop radiographs The patient will be placed in a volar wrist splint. Encouraged no lifting of anything heavier than a cell phone. Please encourage active and passive range of motion of the digits. Follow-up at 4-5 weeks postop for repeat radiographs. Indications: The patient is a 68 year old woman with a left distal radius fracture . The risks and benefits of operative treatment, including but not limited to risk of damage to blood vessels, nerves, tendons, infection, recurrence, persistent pain or numbness, incomplete resolution of preoperative symptoms, or need for further surgery were discussed with the patient and they wished to proceed with surgery. Procedure: Once consent was obtained patient was brought back to the operating suite and placed in the operating table in a supine position. A regional block was performed by the anesthesia team. Perioperative antibiotics and anesthesia was administered by the anesthesia team. A tourniquet was applied to the proximal aspect of the left upper extremity and the limb was prepped and draped in a standard surgical fashion. The limb was elevated exsanguinated with Esmarch bandage and the tourniquet inflated to 250 mm of mercury for a total tourniquet time of 29 minutes. The FluoroScan was used throughout the case to assess our reduction, and facilitate implant placement. A gentle closed reduction was 1st performed on the patient's left distal radius fracture. Was assessed radiographically before proceeding with the reduction internal fixation. I then made an 8 cm longitudinal incision over the distal aspect of the flexor carpi radialis tendon. The incision was made through the skin to the subcutaneous tissue using a 15. Blade. Then carefully dissected down to flexor carpi radialis tendon she tenotomy scissors. The FCR tendon sheath was then incised longitudinally using tenotomy scissors under direct visualization. The FCR tendon was then retracted ulnarly. I then made a longitudinal incision in the volar forearm fascia through the floor of FCR tendon sheath using tenotomy scissors under direct visualization. I identified the interval between the radial artery and the flexor tendons. This interval was developed further with my index finger, releasing some of the muscular fibers of the flexor pollicis longus. A dull weatlander retractor was then placed. I then created an ulnarly based flap of the pronator quadratus by releasing the radial and distal edges using a 15. Blade. A Mallory elevator was used to elevate the pronator quadratus from the volar surface of the distal radius. This then revealed to us our distal radius fracture. An open reduction was then performed on our distal radius fracture. I then placed a short narrow 3 hole Accu Med volar locking plate on the volar surface of the distal radius. I placed a single K-wire through the distal aspect of the plate and into the distal radius. This was assessed using fluoroscopic images. I was satisfied with the placement of our plate. I then placed 4 X 2.3 mm locking screws/pegs in the distal aspect of the plate and distal radius by 1st drilling bicortically with a 1.8 mm drill bit, measuring with a depth gauge, and placing the appropriate length locking screws/pegs. The placement of our plate and screws was then assessed again using fluoroscopic images. The once satisfied with the placement of the volar locking plate and screws on the distal aspect of the distal radius, the plate was then reduced to the shaft of the radius. I then placed 3 3.5 mm cortical screws to the proximal aspect of the plate and into the shaft of the radius. This was done by 1st drilling bicortically with a 2.8 mm drill bit, measuring with a depth gauge, and placing the appropriate length screw. Final radiographs were then obtained. The DRUJ was assessed and found to be stable on exam. I was satisfied with our reduction and placement of all implants. At this point the wound was irrigated with normal saline. The pronator quadratus was reduced back over the volar locking plate using some 3-0 Vicryl suture material. The tourniquet was then deflated and hemostasis was obtained with a brief period of local pressure and bipolar monopolar electrocautery. The subcutaneous layer was then reapproximated using some 4-0 Vicryl suture, and the skin edges were reapproximated using some 5 0 Prolene suture. The wound was then infiltrated with some 1% lidocaine with epinephrine postop pain control. A sterile dressing and a short dorsal splint allowing for active flexion and extension of the digits was applied. The patient appears to have tolerated the procedure well and with no complications. All digits were well vascularized conclusion of the case.
== END 2024-07-09 15:45 | disposition home or self-care (01) ==
PROVIDERS: PCP Internal Medicine; Visit Provider Orthopaedic Surgery
PROC: (CPT 25607; principal; 2024-07-09 12:00)
DX: S52.552A Other extraarticular fracture of lower end of left radius, initial encounter for closed fracture (principal); M25.532 Pain in left wrist; S52.615A Nondisplaced fracture of left ulna styloid process, initial encounter for closed fracture; W01.0XXA Fall on same level from slipping, tripping and stumbling without subsequent striking against object, initial encounter; Y93.89 Activity, other specified; Y92.010 Kitchen of single-family (private) house as the place of occurrence of the external cause; Y99.9 Unspecified external cause status; I10 Essential (primary) hypertension; E78.5 Hyperlipidemia, unspecified; F31.9 Bipolar disorder, unspecified; G47.00 Insomnia, unspecified; M19.90 Unspecified osteoarthritis, unspecified site; Z79.899 Other long term (current) drug therapy; F17.210 Nicotine dependence, cigarettes, uncomplicated
CPT/HCPCS: 25607; 94640; C1713; J0131; J0690; J1100; J2003; J2004; J2250; J2371; J2405; J2704; J2795; J3010

== ENCOUNTER → 2024-07-09 10:59 | Outpatient (BNV) | payer MEDICARE, SELFPAY | PROVIDERS: PCP Internal Medicine; Visit Provider Orthopaedic Surgery | DX: S52.502A Unspecified fracture of the lower end of left radius, initial encounter for closed fracture (principal) | CPT/HCPCS: 25607 ==

== ENCOUNTER 2024-07-23 10:57 | Outpatient (REF) | payer MEDICARE, SELFPAY ==
--- NOTE | ~2024-07-23 | XR_ITS ---
CLINICAL HISTORY: RIGHT HIP PAIN 2 views of the right hip. Comparison: None Findings: No fracture or malalignment. Mild degenerative changes of the femoral-acetabular joint. The soft tissues are unremarkable. IMPRESSION: No acute findings. This document has been electronically signed by: Benjamin Moore MD on 07/23/2024 12:06:42
== END 2024-07-23 10:58 | disposition home or self-care (01) ==
LOC: HO.HMGCX 10:57
PROVIDERS: PCP Internal Medicine; Visit Provider Internal Medicine
DX: M25.551 Pain in right hip (principal)
CPT/HCPCS: 73502

== ENCOUNTER → 2024-07-23 11:01 | Outpatient (BNV) | payer MEDICARE, SELFPAY | PROVIDERS: PCP Internal Medicine; Visit Provider Radiology Vascular & Interventional Radiology | DX: M25.551 Pain in right hip (principal) | CPT/HCPCS: 73502 ==

== ENCOUNTER 2024-07-24 08:24 | Outpatient (REF) | payer MEDICARE, SELFPAY ==
--- NOTE | ~2024-07-24 | XR_ITS ---
EXAMINATION: XR WRIST 3 OR MORE VIEWS LEFT HISTORY: M25.532 - Pain in left wrist COMPARISON: Comparison is made with the prior examination dated 07/03/2024. FINDINGS: Three views of the left wrist are submitted. The bones are osteopenic. In the interval since the prior study, the patient is status post internal fixation of the previously seen fracture of the distal radial metaphysis with a sideplate and multiple orthopedic screws. Alignment is near-anatomic. There is osteoarthritis of the 1st carpometacarpal joint. The soft tissues are unremarkable. XR/XR wrist LT min 3V IMPRESSION: Internal fixation of the previously seen fracture of the distal radial metaphysis with a side plate and orthopedic screws. Electronically signed by: Sarkis Leo MD 07/31/2024 03:43 PM L[facility] DUNN
== END 2024-07-24 08:25 | disposition home or self-care (01) ==
LOC: HO.HOSX 08:24
DX: M25.532 Pain in left wrist (principal); S52.502D Unspecified fracture of the lower end of left radius, subsequent encounter for closed fracture with routine healing; S52.615D Nondisplaced fracture of left ulna styloid process, subsequent encounter for closed fracture with routine healing; Z98.890 Other specified postprocedural states
CPT/HCPCS: 29075; 73110; 99212

== ENCOUNTER 2024-07-24 09:54 | Outpatient (AMB) | payer MEDICARE, SELFPAY ==
--- NOTE | 2024-07-24 09:55 | MHC.OFFVIS ---
Intake Visit Reasons: PO LT distal radius ORIF 07/09/24 AR Intake Note: Martha is a 68 year old left hand dominant female presents today for her post operative visit for her left distal radius ORIF DOS: 07/09/[address] Templeton. On 06/28/24 she slipped and fell landing on the left wrist. Patient reports that she is doing very well with no pain. No concerns at this time. Sutures removed and steri strip applied Allergies No Known Allergies Allergy (Unverified 07/03/24 10:26) HPI HPI PO LT distal radius ORIF 07/09/24 AR: Details: Martha is a 68 year old left hand dominant female presents today for her post operative visit for her left distal radius ORIF DOS: 07/09/[address] Templeton. On 06/28/24 she slipped and fell landing on the left wrist. Patient reports that she is doing very well with no pain. No concerns at this time. 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 Neuro: Normal sensation of the tips of all digits of the left hand at this time Vascular: Cap refill brisk Pain: Patient reports no tenderness to palpation about the radial styloid, ulnar styloid, DRUJ, incision site, or elsewhere on the left wrist ROM: Patient is able to make a closed fist and extend all digits of the left hand fully and without difficulty Skin: Well approximated and well healing incision site noted on the volar aspect of the patient's left wrist No evidence of infection General: No ecchymosis, erythema, or evidence of infection. Psych: Appears grossly normal Affect normal Attitude cooperative Office Procedures Casting/Splints 71747-Otum/Wrist Cast Application Procedure code (CPT) selection complete Results Reviewed Results Reviewed: X-rays obtained in the office today and independently reviewed by me, Gordo Reyes PA-C, demonstrate orthopedic hardware in place and in satisfactory clinical alignment. Assessment & Plan Assessment & Plan (1) Fracture of left distal radius: Code(s): S52.502A - Unspecified fracture of the lower end of left radius, initial encounter for closed fracture Category: Medical (2) Nondisplaced fracture of styloid process of left ulna: Code(s): S52.615A - Nondisplaced fracture of left ulna styloid process, initial encounter for closed fracture Category: Medical Plan 1. Left distal radius fracture status post ORIF DOS 07/09/2024 Patient appears to be recovering well postoperatively Patient is educated about the typical recovery course At this time, patient was placed into a short-arm cast for a further 2 weeks of immobilization to allow the fracture to heal Patient was amenable to this plan Patient is educated on proper cast care and precautions Patient was advised that she should continue with a 2 lb weight limit in her left hand Patient will follow-up in 2 weeks with repeat x-rays for reassessment, anticipate cast removal at that time, sooner with any acute concerns Orders: Orders XR wrist LT min 3V Today M25.532 - Pain in left wrist Coding Level of Care Code Global (61179) Diagnoses Fracture of left distal radius S52.502A Nondisplaced fracture of styloid process of left ulna S52.615A CPT Codes Casting - CPT: 09164-Wnxs/Wrist Cast Application ([id number])
== END 2024-07-24 10:53 | disposition home or self-care (01) ==
PROVIDERS: PCP Internal Medicine
DX: S52.502A Unspecified fracture of the lower end of left radius, initial encounter for closed fracture (principal); S52.615A Nondisplaced fracture of left ulna styloid process, initial encounter for closed fracture
CPT/HCPCS: 29075; 99024

== ENCOUNTER → 2024-07-24 09:56 | Outpatient (BNV) | payer MEDICARE, SELFPAY | PROVIDERS: Visit Provider Radiology Diagnostic Radiology | DX: S52.502A Unspecified fracture of the lower end of left radius, initial encounter for closed fracture (principal); S52.615A Nondisplaced fracture of left ulna styloid process, initial encounter for closed fracture | CPT/HCPCS: 73110 ==

== ENCOUNTER 2024-08-07 08:18 | Outpatient (REF) | payer MEDICARE, SELFPAY | END 2024-08-07 08:19 | disposition home or self-care (01) | LOC: HO.HOSX 08:18 | DX: Z13.89 Encounter for screening for other disorder (principal) ==

== ENCOUNTER 2024-08-14 08:16 | Outpatient (REF) | payer MEDICARE, SELFPAY ==
--- NOTE | ~2024-08-14 | XR_ITS ---
EXAMINATION: XR WRIST 3 OR MORE VIEWS LEFT HISTORY: M25.532 - Pain in left wrist COMPARISON: Comparison is made with the prior examination dated 07/24/2024. FINDINGS: Three views of the left wrist are submitted. The bones are osteopenic. The patient is again noted to be status post internal fixation of a fracture of the distal radius with a side plate and orthopedic screws. Hardware is intact and unchanged in position. The fracture line remains visible. The joint spaces are preserved. The soft tissues are unremarkable. XR/XR wrist LT min 3V IMPRESSION: Internal fixation of a fracture of the distal radial metaphysis without change. Electronically signed by: Sarkis Leo MD 08/14/2024 09:25 AM LAKISHA
== END 2024-08-14 08:17 | disposition home or self-care (01) ==
LOC: HO.HOSX 08:16
DX: S52.502A Unspecified fracture of the lower end of left radius, initial encounter for closed fracture (principal); S52.615A Nondisplaced fracture of left ulna styloid process, initial encounter for closed fracture; X58.XXXA Exposure to other specified factors, initial encounter; Y93.9 Activity, unspecified; Y92.9 Unspecified place or not applicable; Y99.9 Unspecified external cause status
CPT/HCPCS: 73110; 99212

== ENCOUNTER 2024-08-14 08:28 | Outpatient (AMB) | payer MEDICARE, SELFPAY ==
--- NOTE | 2024-08-14 08:29 | A.OFFVIS_ITS ---
Intake Visit Reasons: PO LT distal radius ORIF 07/09/24- w/ Xray Intake Note: Martha is a 68 year old left hand dominant female presents today for her post operative visit for her left distal radius ORIF DOS: 07/09/[address] Templeton. At her last visit she was placed in a short-arm cast. Patient reports she is do ing well, states stiffness with her cast being removed. Allergies No Known Allergies Allergy (Unverified 08/14/24 08:30) HPI HPI PO LT distal radius ORIF 07/09/24- w/ Xray: Details: Martha is a 68 year old left hand dominant female presents today for her post operative visit for her left distal radius ORIF DOS: 07/09/[address] Templeton. At her last visit she was placed in a short-arm cast. Patient reports she is doing well, states stiffness with her cast being removed. No pain in the left wrist at this time. Denies any numbness or tingling in the left upper extremity. No other acute complaints or concerns at this time. 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 Neuro: Normal sensation of the tips of all digits of the left hand at this time Vascular: Cap refill brisk Pain: Patient reports no tenderness to palpation about the radial styloid, ulnar styloid, DRUJ, incision site, or elsewhere on the left wrist ROM: Patient is able to make a closed fist and extend all digits of the left hand fully and without difficulty Pronation and supination of the left wrist full and intact, with some very slight accommodation at the shoulder for supination of the left wrist Skin: Well approximated and well healed incision site noted on the volar aspect of the patient's left wrist No evidence of infection General: No ecchymosis, erythema, or evidence of infection. Psych: Appears grossly normal Affect normal Attitude cooperative Results Reviewed Results Reviewed: X-rays obtained in the office today and independently reviewed by me, Gordo Reyes PA-C, demonstrate orthopedic hardware in place and in satisfactory clinical alignment with evidence of interval bony healing. Assessment & Plan Assessment & Plan (1) Fracture of left distal radius: Code(s): S52.502A - Unspecified fracture of the lower end of left radius, initial encounter for closed fracture Category: Medical (2) Nondisplaced fracture of styloid process of left ulna: Code(s): S52.615A - Nondisplaced fracture of left ulna styloid process, initial encounter for closed fracture Category: Medical Plan 1. Left distal radius fracture status post ORIF DOS 07/09/2024 Patient appears to be recovering well postoperatively Patient is educated about the typical recovery course At this time, patient was placed into a Velcro wrist splint to be worn with daytime activities and in high-risk environment, such as icy parking lots and grocery stores Patient was amenable to this plan Patient is educated on proper cast care and precautions Patient was advised that she should continue with a 2 lb weight limit in her left hand Patient will follow-up in 6 weeks upon return from [place] with repeat x-rays for reassessment, sooner with any acute concerns Orders: Orders XR wrist LT min 3V Today M25.532 - Pain in left wrist Coding Level of Care Code Global (45543) Diagnoses Fracture of left distal radius S52.502A Nondisplaced fracture of styloid process of left ulna S52.615A
== END 2024-08-14 09:02 | disposition home or self-care (01) ==
DX: S52.502A Unspecified fracture of the lower end of left radius, initial encounter for closed fracture (principal); S52.615A Nondisplaced fracture of left ulna styloid process, initial encounter for closed fracture
CPT/HCPCS: 99024

== ENCOUNTER 2025-01-31 09:00 | Outpatient (AMB) | payer MEDICARE, SELFPAY ==
--- NOTE | 2025-01-31 09:11 | A.OFFPC_ITS ---
Vital Signs 01/31/25 09:40 Height 5 ft 5.55 in Weight 128 lb 6 oz BMI 21.0 BP 136/76 Blood Pressure Location Rt brachial Position Sitting Respiration 20 Pulse 89 Pulse Source Pulse Oximeter Temp 97 F Temp Source Temporal Artery Scan Pulse Oximetry (%) 96 Oxygen Delivery Method Room Air Intake Visit Reasons: Establish Care Inspector Publications Required: No Accompanied by: Self / Same As Patient Allergies No Known Allergies Allergy (Verified 01/31/25 13:11) Medication List - Last Reconciled 01/31/25 by Jewels Joseph PA-C alendronate 70 mg PO QWEEK bupropion HCl XL 300 mg PO QAM cholecalciferol (vitamin D3) 25 mcg PO DAILY cyclobenzaprine 10 mg PO TID escitalopram oxalate 20 mg PO BEDTIME esomeprazole magnesium (Nexium 24HR) 20 mg PO DAILY hydroxyzine HCl 50 mg PO BEDTIME PRN lurasidone 40 mg PO QPM magnesium 250 mg PO DAILY simvastatin 20 mg PO BEDTIME trazodone 200 mg PO BEDTIME zolpidem 10 mg PO BEDTIME PRN MDD bedtime Tobacco use date assessed: 01/31/25 Fall risk assessment: 2 + Falls in past year Last assessed Fall Risk: 01/31/25 Dental Screening Dental Screen Date: 01/31/25 Did you have a dental visit in the last 12 months?: No Did you have a dental problem in the last 6 months where you did not have access to dental care?: No Was dental information given to patient?: No HPI Establish Care HPI Details The patient is a 69-year-old female presenting for a new patient appointment as her provider Dr. Gray retired along with sciatica and medication review. The sciatica affects her right hip and has been managed with Flexeril and Ultram, but she currently lacks a refill for Ultram. She has not undergone physical therapy for this condition, and previous x-rays showed no significant findings. The patient has a history of chronic kidney disease, with a GFR of 48 noted in June, indicating stage 3 chronic kidney disease. She was advised against NSAIDs due to her kidney condition, although recent lab results suggest her kidney function is stable with a GFR of 44. A normal BUN and creatinine. The patient is also managing osteoporosis with Fosamax, which she has been taking since before 2021. She is due for a bone density scan to assess the effectiveness of the treatment. Her psychiatric history includes depression and bipolar disorder, for which she is taking escitalopram and Latuda, respectively. She also takes bupropion to aid in smoking cessation, although she continues to smoke. The patient has a history of gastroesophageal reflux disease, previously managed with omeprazole, but she has switched to Nexium due to inadequate symptom control. She experiences occasional heartburn and has recently started taking Nexium 20 mg capsules. Anemia was noted in her June blood work, but no specific treatment was discussed during the visit. The patient reports a skin lesion on her right breast, which has been increasing in size and appears irregular and discolored. She has been referred to dermatology for further evaluation. Social History - Substance Use: The patient continues t o smoke despite taking bupropion for smoking cessation. [facility] Medical History Preventative health care Osteoarthritis Anemia GERD (gastroesophageal reflux disease) Depression Osteoporosis CKD (chronic kidney disease) Skin mole Right hip pain Sciatica Establishing care with new doctor, encounter for Bipolar disorder Arthritis HLD (hyperlipidemia) HTN (hypertension) Surgical History Hx of hernia repair Hx of colonoscopy Family History Father High blood pressure Benign tumor of skin of auricular canal, external Mother High blood pressure Abnormal lead impedance of implantable cardioverter-defibrillator Depression Social History Housing: House Alcohol intake: current Alcohol intake frequency: does not drink Patient Tobacco Use Status: Current everyday Tobacco user service: Yes Current occupational status: retired Cognitive needs: No Hearing needs: No Vision needs: Yes (rx glasses) Questionnaire PHQ-9 Over the last 2 weeks, how often have you been bothered by any of the following problems? 1. Little interest or pleasure in doing things: more than half the days 2. Feeling down, depressed, or hopeless: not at all 3. Trouble falling or staying asleep, or sleeping too much: nearly every day 4. Feeling tired or having little energy: several days 5. Poor appetite or overeating: nearly every day 6. Feeling bad about yourself - or that you are a failure or have let yourself or your family down: not at all 7. Trouble concentrating on things, such as reading the newspaper or watching television: not at all 8. Moving or speaking so slowly that other people could have noticed. Or the opposite - being so fidgety or restless that you have been moving around a lot more than usual: more than half the days 9. Thoughts that you would be better off or of hurting yourself in some way: not at all Total score: 11 Depression Screening Interpretation: Positive Depression Screening Follow-up: Existing condition and In treatment Depression Screening Done: Yes 36845 - PHQ-9 Billing: Yes Source: Developed by Drs. Sarkis eSars, Sapna Rascon, Shaggy Dutton and colleagues, with an educational glenn from [employer]. Thrive Questionnaire Date Thrive assessed: 01/31/25 I am a: Patient What is your living situation today?: I have a steady place to live Within the past 12 months, did the food you bought not last and you didn't have the money to get more?: Never true Within the past 12 months, did you worry whether your food would run out before you got money to buy more?: Never true Do you have trouble paying for medicines?: No Do you have trouble getting transportation to medical appointments?: No Do you have trouble paying your heating and electricity bill?: No Do you have trouble taking care of your child, family member or friend?: No Do you have trouble with day-to-day activities such as bathing, preparing meals, shopping, managing finances, etc.?: No Are you currently unemployed and looking for a job?: No Are you interested in more education?: No Please select the resources that you would like help with: None Currently or been in a relationship where the following occur: No concerns reported THRIVE Score: 0 AUDIT C Alcohol Use Questionnaire (AUDIT-C) 1. How often do you have a drink containing alcohol?: Never 3. How often do you have six or more drinks on one occasion?: Never Total Score: 0 Score Reviewed/Action Taken: No ABDIRAHMAN-7 AMB Questionnaire ABDIRAHMAN-7 Date ABDIRAHMAN - 7 assessed: 01/31/25 Feeling nervous, anxious, or on edge: 1 = Several days Not being able to stop or control worryin = Several days Worrying too much about different things: 1 = Several days Trouble relaxin = More than half the days Being so restless that it is hard to sit still: 0 = Not at all Becoming easily annoyed or irritable: 0 = Not at all Feeling afraid as if something awful might happen: 1 = Several days Total ABDIRAHMAN-7 score (0-4 normal; 5-9 mild; 10-14 moderate; 15-21 severe): 6 Source: Developed by Drs. Sarkis Sears, Sapna Rascon, Shaggy Dutton and colleagues, with an educational glenn from [employer]. ABDIRAHMAN-7 Assessment Billing ABDIRAHMAN-7 Assessment Tool: ABDIRAHMAN-7 Assessment 90472 Review of Systems Const Details: - Musculoskeletal: Reports right hip pain exacerbated by climbing stairs. - Respiratory: Reports wheezing. Denies dyspnea or cough. - Gastrointestinal: Reports occasional heartburn. Denies black or bloody stools. - Genitourinary: Denies dysuria. - Neurological: Denies recent falls. Physical exam (Primary Care) Vital Signs: Last Vital Signs Temp 97 F 01/31/25 09:40 Pulse 89 01/31/25 09:40 Resp 20 01/31/25 09:40 BP 136/76 01/31/25 09:40 Pulse Ox 96 01/31/25 09:40 Oxygen Delivery Method Room Air 01/31/25 09:40 Care Plan Goal for BP management: <140/90 at Goal BMI result Body Mass Index 21.0 Normal BMI Tobacco/Smoking Status: Tobacco use Status Tobacco use date assessed 01/31/25 01/31/25 09:16 Patient Tobacco Use Status Current everyday Tobacco 01/31/25 10:03 PHQ-9: PHQ-9 Score PHQ-9: Total score 11 01/31/25 10:03 Depression Screening Interpretation: Positive Depression Screening Follow-up: Existing condition and In treatment Thrive Assessment: Date of Thrive Assessment Date Thrive assessed 01/31/25 01/31/25 09:16 Currently or been in a relationship where the following occur: No concerns reported Const Other: Appearance: Alert. Oriented X3. No acute distress. Head: Normal external exam. Normocephalic. Atraumatic. Eyes: Pupils are equal, round, and reactive to light. Extraocular movements intact. Conjunctiva and sclera normal. Eyelids normal. Ears: External auditory canal normal. Tympanic membranes normal. Throat: Pharynx normal. Uvula midline. Moist mucous membranes. Neck: Normal inspection. Neck supple. Full range of motion. No adenopathy. Thyroid Normal. No meningeal signs. No neck mass noted. Cardiovascular: Normal heart rate and rhythm. Heart sound normal. No murmurs noted. Pulses normal throughout. Respiratory: No respiratory distress. Painless inspiration. Breath sounds normal. Little wheeze noted. No rales/rhonchi noted. Chest nontender. No accessory muscle usage noted or decreased air movement noted. Abdomen: Soft and nontender. Bowel sounds normal in all 4 quadrants. No distention noted. No organomegaly noted. No visible injury noted. Back: No costovertebral angle tenderness. Full range of motion noted. Skin: Skin warm and dry. Normal skin color. Normal skin turgor. Notable mole on the right breast, irregular and discolored. No additional rashes/lesions/lacerations noted. Extremities: No lower extremity edema. No calf tenderness is noted. Right hip pain noted, exacerbated by climbing stairs. Otherwise all other extremities exhibit normal range of motion nontender. Neuro: Oriented X 3. No motor deficit. No sensory deficit. Reflexes normal. Results Reviewed Results Reviewed: - Labs: June blood work showed anemia and a GFR of 48, indicating stage 3 chronic kidney disease. - Imaging: Previous x-rays showed no significant findings related to the hip pain. Coding Level of Care Code New Pt Level 4 (19038) Complex EM visit Add On G2211 Diagnoses Establishing care with new doctor, encounter for Z76.89 Bipolar disorder F31.9 HTN (hypertension) I10 HLD (hyperlipidemia) E78.5 Arthritis M19.90 CKD (chronic kidney disease) N18.9 Osteoporosis M81.0 Depression F32.A GERD (gastroesophageal reflux disease) K21.9 Anemia D64.9 Osteoarthritis M19.90 Skin mole D22.9 Preventative health care Z00.00 Sciatica M54.30 Additional Codes ABDIRAHMAN-7 Assessment Billing - ABDIRAHMAN-7 Assessment Tool: ABDIRAHMAN-7 Assessment 10850 ([id number]) PHQ-9 - 17660 - PHQ-9 Billing: Yes ([id number]) Time Spent (min) 50 Assessment & Plan Assessment & Plan (1) Establishing care with new doctor, encounter for: Code(s): Z76.89 - Persons encountering health services in other specified circumstances Category: Medical (2) Bipolar disorder: Code(s): F31.9 - Bipolar disorder, unspecified Category: Medical Plan: Latuda will be continued for the management of bipolar disorder. (3) HTN (hypertension): Code(s): I10 - Essential (primary) hypertension Category: Medical Plan: Blood pressure controlled today patient to continue diet-controlled blood pressure. Condition is chronic and stable continue to monitor. (4) HLD (hyperlipidemia): Code(s): E78.5 - Hyperlipidemia, unspecified Category: Medical Plan: Patient currently on simvastatin. Patient to continue simvastatin 20 mg. Condition is chronic and stable will continue to monitor. (5) Arthritis: Code(s): M19.90 - Unspecified osteoarthritis, unspecified site Category: Medical Plan: The patient is advised to continue using turmeric for osteoarthritis management. (6) CKD (chronic kidney disease): Code(s): N18.9 - Chronic kidney disease, unspecified Category: Medical Plan: The patient's kidney function will be monitored, and NSAIDs will be avoided due to the risk of further kidney damage. (7) Osteoporosis: Code(s): M81.0 - Age-related osteoporosis without current pathological fracture Category: Medical Plan: A bone density scan is planned to evaluate the effectiveness of Fosamax therapy. (8) Depression: Code(s): F32.A - Depression, unspecified Category: Medical Plan: The patient will continue taking escitalopram for depression management. (9) GERD (gastroesophageal reflux disease): Code(s): K21.9 - Gastro-esophageal reflux disease without esophagitis Category: Medical Plan: The patient has switched to Nexium 20 mg capsules for better symptom control of gastroesophageal reflux disease. (10) Anemia: Code(s): D64.9 - Anemia, unspecified Category: Medical Plan: The anemia noted in June will be monitored, though no specific treatment was discussed during the visit. (11) Osteoarthritis: Code(s): M19.90 - Unspecified osteoarthritis, unspecified site Category: Medical Plan: The patient is advised to continue using turmeric for osteoarthritis management. (12) Skin mole: Code(s): D22.9 - Melanocytic nevi, unspecified Category: Medical Plan: A dermatology referral has been made for further evaluation of the skin lesion on the right breast. (13) Preventative health care: Code(s): Z00.00 - Encounter for general adult medical examination without abnormal findings Category: Medical Plan: The patient is due for a mammogram and bone density scan to monitor osteoporosis and breast health. A Cologuard test has been ordered for colon cancer screening, with instructions provided for its use. (14) Sciatica: Code(s): M54.30 - Sciatica, unspecified side Category: Medical Plan: The patient will be referred to physical therapy to address the right hip pain associated with sciatica. The current medication regimen includes Flexeril, and the continuation of Ultram will be discussed with Dr. Stanford. Plan Plan Patient was informed and verbally consented to the use of an ambient scribe for clinic note documentation during this visit. 1. Sciatica The patient will be referred to physical therapy to address the right hip pain associated with sciatica. The current medication regimen includes Flexeril, and the continuation of Ultram will be discussed with Dr. Stanford. 2. Chronic Kidney Disease The patient's kidney function will be monitored, and NSAIDs will be avoided due to the risk of further kidney damage. 3. Osteoporosis A bone density scan is planned to evaluate the effectiveness of Fosamax therapy. 4. Depression The patient will continue taking escitalopram for depression management. 5. Bipolar Disorder Latuda will be continued for the management of bipolar disorder. 6. Gastroesophageal Reflux Disease The patient has switched to Nexium 20 mg capsules for better symptom control of gastroesophageal reflux disease. 7. Anemia The anemia noted in June will be monitored, though no specific treatment was discussed during the visit. 8. Osteoarthritis The patient is advised to continue using turmeric for osteoarthritis management. 9. Skin Lesion A dermatology referral has been made for further evaluation of the skin lesion on the right breast. 10. Preventative Care: Mammogram And Bone Density Scan The patient is due for a mammogram and bone density scan to monitor osteoporosis and breast health. 11. Preventative Care: Colon Cancer Screening With Cologuard A Cologuard test has been ordered for colon cancer screening, with instructions provided for its use. I discussed with the patient the management of her sciatica, including the potential for physical therapy and the review of her medication regimen with Dr. Stanford. We reviewed her chronic kidney disease status and the importance of avoiding NSAIDs. Preventative care measures, including a mammogram, bone density scan, and Cologuard test, were recommended and explained. A dermatology referral was made for the evaluation of a skin lesion on her right breast. Orders: Orders PT Evaluation and Treatment Today M25.551 - Pain in right hip, M54.30 - Sciatica, unspecified side MM screening mammo BI Today Z12.31 - Encounter for screening mammogram for malignant neoplasm of breast XR DEXA axial skeleton Today M81.0 - Age-related osteoporosis without current pathological fracture Referrals Cologuard Test Z12.11 - Encounter for screening for malignant neoplasm of colon, Z12.12 - Encounter for screening for malignant neoplasm of rectum Dermatology Referral D22.9 - Melanocytic nevi, unspecified Pain Management Referral M19.90 - Unspecified osteoarthritis, unspecified site, M25.551 - Pain in right hip, M54.30 - Sciatica, unspecified side Medications: New esomeprazole magnesium (Nexium 24HR) 20 mg PO DAILY 90 caps 3RF Patient Instructions: - Follow up with physical therapy for sciatica management. - Avoid NSAIDs due to chronic kidney disease. - Complete the Cologuard test as instructed for colon cancer screening. - Schedule and attend mammogram and bone density scan appointments. - Contact dermatology for an appointment regarding the skin lesion.
--- OUTSIDE RECORDS SUMMARY | 2025-01-31 09:22 | XMS_ITS | Clinical Summary ---
Author Organization [facility] Address [address] [place] [phone] Phone Care Team Providers Care Coding Team Lead Name Role Phone Unavailable Primary Care Provider Unavailabl e Allergies No known active allergies Medications zolpidem (AMBIEN) 10 MG tablet TAKE ONE TABLET BY MOUTH AT NIGHT NEEDED. 2 Active traZODone (DESYREL) 50 MG tablet Take 200 mg by mouth 1 (one) time each day in the evening 2 Active simvastatin (ZOCOR) 20 MG tablet 2 Active omeprazole (PriLOSEC) [address] capsule 2 Active hydrOXYzine (ATARAX) 50 MG tablet Take 50 mg by mouth at night if needed 2 Active escitalopram (LEXAPRO) 20 MG tablet Take 20 mg by mouth at bed time 2 Active buPROPion XL (WELLBUTRIN XL) 300 MG 24 hr tablet Take 300 mg by mouth every morning 2 Active alendronate (FOSAMAX) 70 MG tablet 2 Active lurasidone (LATUDA) 20 MG tablet Take 20 mg by mouth 1 (one) time each day with breakfast Active cyclobenzaprine (FLEXERIL) 10 MG tablet TAKE ONE TABLET 10 MG) BY MOUTH THREE TIMES A DAY Active Active Problems Problem Noted Date Diagnosed Date Renal osteodystrophy 05/09/2023 Stage 3b chronic kidney disease 03/07/2023 Hypertensive heart disease without heart failure 05/27/2022 Hydronephrosis 05/27/2022 Coronary arteriosclerosis 05/27/2022 Family History Medical History Relation Comments Diabetes Father Hypertension Father Heart disease Mother Hypertension Mother Kidney disease Mother Relation Status Comments Father Mother Social History Tobacco Use Types Packs/Day Years Used Date Smoking Tobacco: Every Day Cigarettes 1 6.9 Started: 02/23/2018 Alcohol Use Standard Drinks/Week Comments Yes 0 (1 standard drink = 0.6 oz pure alcohol) Alcoholic Drinks/day: Occasional social drink Comments Unknown Sex and Gender Information Value Date Recorded Sex Assigned at Female 03/07/2023 4:05 PM EDT Legal Sex Female 4:52 PM EST Gender Identity Female 03/07/2023 4:05 PM EDT Sexual Orientation Not on file Last Filed Vital Signs Vital Sign Reading Time Taken Comments Blood Pressure 110/64 10/24/2023 4:06 PM EDT Pulse 74 10/24/2023 4:06 PM EDT Temperature - - Respiratory Rate - - Oxygen Saturation 96% 10/24/2023 4:06 PM EDT Inhaled Oxygen Concentration - - Weight 61.4 kg (135 lb 6.4 oz) 10/24/2023 4:06 P M EDT Height - - Body Mass Index - - Plan of Treatment Health Maintenance Due Date Last Done Comments Breast Cancer Screening 1955 Pneumococcal Vaccine: 50+ Ye ars (1 of 2 - PCV) 1975 Colorectal Cancer Screening: Annual FOBT 2005 Colorectal Cancer Screening: Colonoscopy 2005 Colorectal Cancer Screening: Sigmoidoscopy 2005 Influenza Vaccine (#1) 2025 Hepatitis B Vaccine Aged Out No longe r eligible based on patient's age to complete this topic Insurance Medicare Medicare
[2025-01-31 09:40] VITALS: BP 136/76; PULSE 89; RESP 20; TEMP 36.1; O2SAT 96; BMI 21.0
== END 2025-01-31 10:35 | disposition home or self-care (01) ==
LOC: HO.HMCSH 09:00
PROVIDERS: PCP Physician Assistant Medical; Visit Provider Physician Assistant Medical
DX: I12.9 Hypertensive chronic kidney disease with stage 1 through stage 4 chronic kidney disease, or unspecified chronic kidney disease (principal); N18.9 Chronic kidney disease, unspecified; F31.9 Bipolar disorder, unspecified; Z76.89 Persons encountering health services in other specified circumstances; E78.5 Hyperlipidemia, unspecified; M19.90 Unspecified osteoarthritis, unspecified site; M81.0 Age-related osteoporosis without current pathological fracture; F32.A Depression, unspecified; K21.9 Gastro-esophageal reflux disease without esophagitis; D64.9 Anemia, unspecified; D22.9 Melanocytic nevi, unspecified; Z00.00 Encounter for general adult medical examination without abnormal findings

== ENCOUNTER → 2025-01-31 09:00 | Outpatient (BNVA) | payer MEDICARE, SELFPAY | PROVIDERS: PCP Physician Assistant Medical; Visit Provider Physician Assistant Medical | DX: Z00.01 Encounter for general adult medical examination with abnormal findings (principal); Z76.89 Persons encountering health services in other specified circumstances; F31.9 Bipolar disorder, unspecified; E78.5 Hyperlipidemia, unspecified; I12.9 Hypertensive chronic kidney disease with stage 1 through stage 4 chronic kidney disease, or unspecified chronic kidney disease; N18.9 Chronic kidney disease, unspecified; M19.90 Unspecified osteoarthritis, unspecified site; K21.9 Gastro-esophageal reflux disease without esophagitis; D64.9 Anemia, unspecified; D22.9 Melanocytic nevi, unspecified; M54.30 Sciatica, unspecified side; F17.200 Nicotine dependence, unspecified, uncomplicated; Z71.6 Tobacco abuse counseling | CPT/HCPCS: 96127; 99202 ==

== ENCOUNTER 2025-02-22 21:22 | Emergency (ER) | payer MEDICARE, SELFPAY ==
--- NOTE | ~2025-02-22 | CT_ITS ---
EXAMINATION: CT ANGIOGRAM CHEST CLINICAL INFORMATION: New onset of hypoxia COMPARISON: Chest x-ray 2024. TECHNIQUE: Multiple axial images were obtained through the chest after the administration of 65 mL of Omnipaque 350 intravenous contrast. Extensive vascular post-processing including two-dimensional and three-dimensional reformatted images were created and reviewed on an independent workstation. DLP: 178 mGy/cm. This CT examination was performed using dose optimization techniques as appropriate, variously including the following: *Automated exposure control *Adjustment of mA and/or kV according to patient size (this includes techniques or standardized protocols for targeted exams where dose is matched to indication/reason for exam; i.e. extremities or head) *Use of iterative reconstruction technique FINDINGS: VASCULAR: There is good opacification of pulmonary artery and its branches without intraluminal filling defect, narrowing. The thoracic aorta is of normal caliber. No aneurysm or dissection seen. The heart size is normal. There is mild coronary artery calcifications. No pericardial effusion seen. Nonvascular: There is mild emphysematous changes throughout both lungs. Mild bilateral apical parenchymal scarring and/or atelectasis. No consolidation, nodule or mass seen. There is bibasilar dependent atelectasis. There is no pleural effusion, thickening or calcification. Thyroid lobes are symmetric and normal. The central trachea and bronchi are widely patent. No adnexal adenopathy seen. The chest wall is unremarkable. There are mild old healed left anterior fifth and sixth rib fractures. No aggressive lytic or sclerotic process seen. Visualized liver, spleen appears unremarkable. Partially visualized small left kidney is noted. CT/CT angio chest PE protocol IMPRESSION: No evidence of PE. No evidence of aortic aneurysm or dissection. Central lobular emphysema with bilateral apical and bilateral dependent atelectasis and/or scarring. Fleischner guidelines were followed. Electronically signed by: Nic uD MD 03/06/2025 05:05 PM EDT
--- NOTE | ~2025-02-22 | XR_ITS ---
EXAMINATION: XR CHEST CLINICAL INFORMATION: new onset hypoxia, rule out PTX COMPARISON: Radiographs on May 21, 2013 TECHNIQUE: Frontal view of the chest was obtained. FINDINGS: Pleura: No evidence of pneumothorax or pleural effusion. Parenchyma: Low lung volumes. No focal consolidation. Minimal subsegmental atelectasis over the left lung base. No evidence of pulmonary edema. Approximately 1.6 cm opacity projecting over the left lung base, unclear if artifactual. Mediastinum: Cardiomediastinal silhouettes within normal limits. Bones: No acute findings. XR/XR chest 1V IMPRESSION: 1. No evidence of pneumothorax or other acute abnormality. 2. Opacity projecting over the left lung base, unclear if represents overlapping structures or lung lesion. Recommend short-term follow-up chest radiograph for reevaluation. Electronically signed by: Rosita Cheung MD 03/06/2025 03:40 PM EDT
--- NOTE | ~2025-02-22 | XR_ITS ---
CLINICAL HISTORY: fall pain 3 view, pelvis and right hip Comparison: CR - XR HIP RT MIN 2V - 07/23/2024 11:08 AM EST Findings: Right superior and inferior pubic rami fractures. No significant arthritic change. The soft tissues are unremarkable. Disruption of the right iliopectineal line suggesting anterior acetabular column injury. IMPRESSION: 1. Right superior and inferior pubic rami fractures. 2. Right anterior acetabular column fracture. This document has been electronically signed by: Fernando Mc MD on 02/23/2025 01:36:40
[2025-02-22 21:27] VITALS: BP 140/84; PULSE 88; O2SAT 97
[2025-02-22 21:53] VITALS: BP 161/76; PULSE 80; RESP 18; TEMP 36.6; O2SAT 96; BMI 20.4
[2025-02-22] MEDS: oxyCODONE HCl Immed Release 5 MG TABLET PO (22:46)
--- NOTE | 2025-02-22 22:54 | ED_ITS ---
HPI - Fall General Chief Complaint: Fall Stated Complaint: fall Time Seen by Provider: 02/22/25 22:21 Source: patient, EMS and RN notes reviewed Mode of arrival: EMS Limitations: no limitations History of Present Illness ED Provider: Dr. Miguelina Frey HPI Narrative: patient comes to the emergency room via ambulance. According to the patient, earlier today she was trying to swat a fly, patient got on top of a chair and she has slept and landed on her right buttocks. Patient states that she has a call Alert button. She was able to get up with assistance but she was unable to walk. Patient denies hitting her head or losing consciousness. Patient states that she does not take any blood thinners. Related Data Home Medications ?Medication ?Instructions ?Recorded ?Confirmed escitalopram oxalate 20 mg tablet 20 mg PO BEDTIME 02/25/25 alendronate 70 mg tablet 70 mg PO ALFRED 07/09/24 5 hydroxyzine HCl 50 mg tablet 15 mg PO BEDTIME PRN Pain (Scale 07/09/24 02/25/25 Score 4-6) lurasidone 40 mg tablet 80 mg PO BEDTIME 07/09/24 simvastatin 20 mg tablet 20 mg PO BEDTIME 07/09/24 zolpidem 10 mg tablet 10 mg PO BEDTIME PRN Sleep 1 09/09/23 02/23/25 cholecalciferol (vitamin D3) 25 25 mcg PO DAILY 02/25/25 mcg (1,000 unit) capsule cyclobenzaprine 10 mg tablet 10 mg PO TID PRN Pain 05/1802/25/25 magnesium 250 mg tablet 250 mg PO DAILY 01/31/2511/16 trazodone 100 mg tablet 200 mg PO BEDTIME 01/31/25 0 02/25/25 tramadol 50 mg tablet 50 mg PO NEEDED PRN Pain 02/23/25 02/25/25 ascorbic acid (vitamin C) 500 mg 500 mg PO DAILY 02/2502/25/25 chewable tablet (Vitamin C) calcium carbonate (Calcium 600) 600 mg PO DAILY 02/25/25 diclofenac sodium 1 % topical gel 2 g topical QID PRN Pain 02/25/25 02/25/25 turmeric 400 mg capsule 400 mg PO DAILY 02/25/2511/16 Previous Rx's ?Medication ?Instructions ?Recorded esomeprazole magnesium 20 mg 20 mg PO DAILY #90 caps 0 01/31/25 capsule,delayed release (Nexium 24HR) hydromorphone 2 mg tablet 2 mg PO Q6H PRN severe break 03/13/25 (Dilaudid) through pain #3 tabs Allergies Allergy/AdvReac Type Severity Reaction Status Date / Time No Known Allergies Allergy Verified 02/22/25 21:55 Review of Systems 2 Review of Systems: Constitutional : No Weight loss, No Fever, No Chills, No Night Sweats, No Fatigue, No Malaise ENT/Mouth : No Hearing loss, No Ear Pain, No Nasal Congestion, No Sinus Pain, No Hoarseness, No sore throat, No Rhinorrhea, No Swallowing Difficulty Eyes: No Eye Pain, No Swelling, No Redness, No Foreign Body, No Discharge, No Vision Changes Cardiovascular : No Chest Pain, No SOB, No Dyspnea on Exertion, No Orthopnea, No Edema, No Palpitations Respiratory : No Cough, No Sputum, No Wheezing, No Smoke Exposure, No Dyspnea Gastrointestinal : No Nausea, No Vomiting, No Diarrhea, No Constipation, No abdominal Pain, No Hematochezia, No Melena Genitourinary : no irregular bleeding, No Dysuria, No Urinary Frequency, No Hematuria, No Urinary Incontinence, No Urgency, No Flank Pain, No Urinary Flow Changes, No Hesitancy Musculoskeletal : Complaining of right-sided hip pain /pelvic pain No Myalgias, No Joint Swelling Skin : No Skin Lesions, No rash Neuro : No Weakness, No Numbness, No Paresthesias, No Loss of Consciousness, No Dizziness, No Headache Psych : No Anxiety/Panic, No Depression, No SI/HI/AH/VH, No Social Issues, Heme/Lymph: No Bruising, No Bleeding,No Lymphadenopathy Endocrine : No Polyuria, No Polydipsia, No Temperature Intolerance [facility] Past Medical History Medical History History of mammogram (~11/05/21) Preventative health care Osteoarthritis Anemia GERD (gastroesophageal reflux disease) Depression Osteoporosis CKD (chronic kidney disease) Skin mole Right hip pain Sciatica Establishing care with new doctor, encounter for Bipolar disorder Arthritis HLD (hyperlipidemia) HTN (hypertension) Surgical History Hx of hernia repair Hx of colonoscopy Family History Family History Father High blood pressure Benign tumor of skin of auricular canal, external Mother High blood pressure Abnormal lead impedance of implantable cardioverter-defibrillator Depression Social History Social History Housing: House Alcohol intake: current Alcohol intake frequency: does not drink Patient Tobacco Use Status: Current everyday Tobacco user Advance Directives Date on File: 03/12/25 service: Yes Current occupational status: retired Cognitive needs: No Hearing needs: No Vision needs: Yes (rx glasses) Physical Exam 2 Exam: Exam: Appearance: Alert. Oriented X3. No acute distress. Eyes: Pupils equal, round and reactive to light. ENT: Pharynx normal. Neck: Normal inspection. Neck supple. No lymph nodes noted. No crepitus CVS: Normal heart rate and rhythm. Pulses normal. Normal S1 and S2 Respiratory: No respiratory distress. Breath sounds normal. No Wheezing. No rales Abdomen: Soft and nontender. No rigidity. No distention. Skin: Skin warm and dry. Normal skin color. Normal skin turgor. Extremities: No lower extremity edema. No Lacerations. No Rash Neuro: Oriented X 3. No motor deficit. No sensory deficit. Moving all extremities. No slurred speech. CN 2 through 12 grossly intact Psych: calm, cooperative, normal affect Vital Signs: Vital Signs: Last Vital Signs Temp 97.3 F 03/13/25 12:18 Pulse 63 03/13/25 12:18 Resp 14 03/13/25 12:18 BP 116/61 03/13/25 12:18 Pulse Ox 94 03/13/25 12:18 O2 Del Method Room Air 03/13/25 12:18 O2 Flow Rate 2 03/12/25 14:00 BMI result Body Mass Index 20.4 Course Course Course Narrative: patient has sustained in a fall earlier today, complaining of right-sided hip pain. X-rays pending patient was given a dose of p.o. oxycodone per patient's request Reevaluation(s) Reevaluation #1: 02/23/25 0805 REBECCA Jimenez: Physician observation continued, no overnight events reported by nursing. Awaiting PT/CM evaluation. Time: 08:05 Reevaluation #2: 02/23/25 12:50 REBECCA Jimenez: Melida from states PT attempted to evaluated patient and she was unable to stand. Spoke with [facility] Caro, who advises patient should be 100% non weight bearing. 02/23/25 1722 REBECCA Jimenez: Lengthy discussion had with patient and daughter regarding x-ray results, plan of care, orthopedic recommendations. Daughter questioning why patient does not meet admission criteria. Case also discussed with hospitalist, Dr. De Santiago, who was in agreement the patient does not meet admission criteria. Discussed with daughter that financial services will work with case management on Tuesday to attempt to reinstate mass helps for patient, and she can remain in the ED until that time. Patient and daughter requesting repeat labs, I am agreeable to this and repeat CBC and BMP ordered. Time: 08:26 Date: 02/24/25 Provider: TREY Corado Patient in physician observation for case management needs. I reviewed repeat labs ordered by provider yesterday. CBC without leukocytosis or left shift. H&H upward trending, 11.6/33.3. Chemistry without acute electrolyte abnormality requiring intervention. No ALICIA. Random glucose 121. No acute events reported overnight.? No current issues or complaints. VS stable. She has known pelvic fractures. She is to be 100% nonweightbearing. She is pending case management evaluation. Will continue to monitor. Reevaluation #3: 9:06 p.m., Patrice Osborne PA-C and the case management provider, the patient's pain is main poorly controlled, overnight she was receiving 2 mg of Dilaudid, she has had p.r.n. oxycodone 5 mg ordered and tramadol ordered, she states both of those medications have been ineffective. I cancel them both, she now has a standing prn Dilaudid 2 mg order q.6 hours Time: 16:48 Date: 02/25/25 Provider: TREY Mackey Patient in physician observation for case management needs. Initially tramadol was in the med rec to be continued however upon review from previous note, this was discontinued. I put in the order to discontinue this again. Awaiting case management disposition. Time: 1200 Date: 02/26/25 Provider: TREY Mackey Patient in physician observation for case management needs. No acute events reported overnight.? No current issues or complaints. Will continue to monitor pending case management disposition. Time: 09:02/ 11:22 Date: 02/27/25 Provider: Courtney Sykes PA-C Patient in physician observation for case management needs. No acute events reported overnight.? No current issues or complaints. VS stable. Patient is pending CM disposition, has this on report: IMPRESSION: 1. Right superior and inferior pubic rami fractures. 2. Right anterior acetabular column fracture.. Will continue to monitor. Ortho recommended NWB for 6 weeks, this is an obstacle for rehab placement. [facility] reinstatement pending will need this active for STR search process. 02/28/2025 0916 Anju Hanna PA-C ---> Observation continues, case management continues to follow. Additional Reevaluation(s): Physician observation continued 03/01/2025. Uneventful night. Vital signs stable. No complaints from nursing overnight. Med reconciliation reviewed and done. Pending disposition. Will continue to monitor. Time: 09:26 Date: 03/02/25 Provider: TREY Levi Patient in physician observation for case management needs. No acute events reported overnight.? VS stable. Patient is pending placement at facility/pending PT/CM eval. Will continue to monitor. Patient requesting additional analgesia, oxycodone was discussed with the patient who reported that she has had good relief with that in the past. Colace and MiraLax has also been added. JS Time: 12:36 Date: 03/02/25 Provider: TREY Levi Patient reporting increased discomfort despite oxycodone. We will provide additional analgesia. Time: 17:29 Date: 03/02/25 Provider: TREY Levi Patient in physician observation for case management needs. No current issues or complaints. VS stable. Patient is pending placement at facility/pending PT/CM eval. Will continue to monitor. 03/03/2025 0925:Physician observation continued. Uneventful night. Vital signs stable. No complaints from nursing overnight. Med reconciliation reviewed and done. Pending disposition. Will continue to monitor. 1537 Patient reporting hip pain. Dilaudid PO ordered, if this works should concider adding this to patients meds Time: 10:29 Date: 03/05/25 Provider: Vaishnavi Land, DO Patient in physician observation for case management needs. No acute events reported overnight.? No current issues or complaints. VS stable. Pending CM input. Will continue to monitor. Time: 09:45 Date: 03/06/25 Provider: Courtney Sykes PA-C Patient in physician observation for case management needs. No acute events reported overnight.? No current issues or complaints. VS stable. Patient has not been approved for Medicaid. CM to discuss care options today. Will continue to monitor. 1513: In trying to determine further needs of patient and discussion with both the nurse and case management patient daughter let us know that she is not on oxygen at home. I see no past medical history in her chart of this to clinically correlate however it looks like patient had new oxygen demand on 02/26 and was placed on 1-2 L NC. She has been on and off it with saturations between 92-98. As patient has pubic rami fractures we are not able to ambulate her to see if it gets worse with exertion at rest there is no pain with deep inspiration. Patient has been doing spirometry. No prior history of VTE. With oxygen removed patient remain and 92% which is new for her on room air. For this reason certainly atelectasis would be the these life-threatening cause of her new often a demand but we will now do workup going straight to a CTA EKG and labs. Pneumothorax does not seem likely given her overall presentation and no pleuritic pain. Lungs are auscultated at bedside sound clear chest wall nontender pulses are equal and symmetric. This was brought to attention my attending physician Dr. Land who agrees to bring patient back into the ED setting for closer monitoring. At this point VT prophylaxis will be deferred until workup identifies cause. 1557: Patient is back in the emergency department her portable chest x-ray shows no evidence of a pneumothorax but there is opacity projecting over the left lung base which is unclear if it is overlapping structures versus other lung lesions CTA and labs pending still. 1717: CTA shows no evidence of a PE or other alarming symptoms no infectious etiology noted patient has been medically cleared from respiratory/cardiac standpoint felt to be atelectasis from lack of mobility. She has incentive spirometer. VTE ppx placed along with osborne cath orders. Expressed goal to preform spirometry at least 10 x a day. She continues not to meet admission criteria. Medicaid pending, patient will continue to be in physician observation pending CM needs. Time: 08:20 Date: 03/07/25 Provider: TREY Kam Patient in physician observation for case management needs. No acute events reported overnight.?No currently on O2. Per nursing, intermittently sats low 90s and she takes a few deep breaths and her sats go up. No SOB. VS otherwise are stable. Will follow up with case mangement today re: dispo plan. Will continue to monitor. 03/08/25 physician observation continues, however I will discontinue Osborne catheter has been in for awhile. Will continue w/ oswald 03/09/2025 0908 Anju Hanna PA-C ----> Observation continues. Case management continues to follow. 03/10/2025 0919 Anju Hanna PA-C ----> Observation continues. Case management continues to follow. 9:14 AM 03/11/2025 (Julita Benitez PA-C): Physician observation continued. Patient did have an episode of hypoxia at 86%, and nurse placed her on 1 L oxygen via nasal cannula. I discussed this with my attending physician, Dr. Land. Patient has had episodes of hypoxia throughout her stay awaiting for case management. We have work this up, she had a negative CTA, she is on Lovenox. At this point, Dr. Land believes that patient just needs to be on supplemental oxygen as needed, and we can set this up outpatient. No further workup indicated at this time as we already work this up during this stay without any acute findings. Will continue to monitor. 11:16 AM 03/12/2025 (Julita Benitez PA-C): Physician observation continued, no overnight events per nursing staff. We will continue to monitor pending case management disposition. 03/13/2025 0813 Anju Hanna PA-C ---> Observation care revealed the the patient does not meet medical necessity for hospitalization. Final disposition discussed with the patient. Patient completed observation care at 0813 on 03/13/2025, total time spent in observation care was 18 days, 7 hours, and 53 minutes. Medications Administered Discontinued Medications Generic Name Dose Route Start Last Admin Trade Name Freq PRN Reason Stop Dose Admin Acetaminophen 975 mg 02/26/25 21:47 03/12/25 16:06 Acetaminophen 325 Mg Tablet PO 975 mg Q6H PRN Administration Pain, Mild 1-3,fever,headache Ascorbic Acid 500 mg 02/27/25 09:00 03/13/25 08:18 Ascorbic Acid 500 Mg Tablet PO 500 mg DAILY IMAN Administration Atorvastatin Calcium 10 mg 02/23/25 23:55 03/12/25 21:38 Atorvastatin Calcium 10 Mg Tablet PO 10 mg BEDTIME IMAN Administration Calcium Carbonate 750 mg 02/27/25 09:00 03/13/25 08:18 Calcium Carbonate 750 Mg Tab.Chew PO 750 mg DAILY IMAN Administration Cyclobenzaprine HCl 10 mg 02/23/25 23:07 03/13/25 05:00 Cyclobenzaprine Hcl 10 Mg Tablet PO 10 mg TID PRN Administration pain, moderate Cyclobenzaprine HCl 10 mg 02/25/25 13:53 03/02/25 05:56 Cyclobenzaprine Hcl 10 Mg Tablet PO 10 mg TID PRN Administration Pain, Moderate(Pain Scale 4-6) Docusate Sodium 100 mg 03/02/25 09:28 03/13/25 08:18 Docusate Sodium 100 Mg Capsule PO 100 mg BID IMAN Administration Enoxaparin Sodium 40 mg 03/06/25 18:00 03/12/25 18:06 Enoxaparin Sodium 40 Mg/0.4 Ml Syringe SUBCUT 40 mg Q24H IMAN Administration Escitalopram Oxalate 20 mg 02/23/25 23:15 03/12/25 21:39 Escitalopram Oxalate 20 Mg Tablet PO 20 mg BEDTIME IMAN Administration Hydromorphone HCl 2 mg 02/23/25 09:58 02/23/25 10:04 Hydromorphone Hcl 2 Mg Tablet PO 02/23/25 09:59 2 mg ONCE ONE Administration Hydromorphone HCl 2 mg 02/23/25 15:33 02/23/25 15:39 Hydromorphone Hcl 2 Mg Tablet PO 02/23/25 15:34 2 mg ONCE ONE Administration Hydromorphone HCl 2 mg 02/23/25 23:38 02/23/25 23:48 Hydromorphone Hcl 2 Mg Tablet PO 02/23/25 23:39 2 mg ONCE ONE Administration Hydromorphone HCl 2 mg 02/24/25 21:04 02/24/25 21:10 Hydromorphone Hcl 2 Mg Tablet PO 02/24/25 21:05 2 mg ONCE ONE Administration Hydromorphone HCl 2 mg 02/24/25 21:05 03/01/25 17:20 Hydromorphone Hcl 2 Mg Tablet PO 2 mg Q6H PRN Administration pain,moderate Hydromorphone HCl 1 mg 03/02/25 12:08 03/02/25 13:14 Hydromorphone Hcl 1 Mg/Ml Syringe IVPUSH 03/02/25 12:09 1 mg ONCE ONE Administration Protocol Hydromorphone HCl 2 mg 03/03/25 15:26 03/03/25 15:30 Hydromorphone Hcl 2 Mg Tablet PO 03/03/25 15:27 2 mg ONCE ONE Administration Hydromorphone HCl 2 mg 03/03/25 21:05 03/08/25 12:57 Hydromorphone Hcl 2 Mg Tablet PO 2 mg Q6H PRN Administration Pain, Moderate(Pain Scale 4-6) Hydromorphone HCl 2 mg 03/08/25 21:53 03/13/25 10:02 Hydromorphone Hcl 2 Mg Tablet PO 2 mg Q6H PRN Administration Pain, Severe (Pain Scale 7-10) Hydroxyzine HCl 15 mg 02/23/25 23:51 03/12/25 21:41 Hydroxyzine Hcl 10 Mg Tablet PO 15 mg BEDTIME PRN Administration Pain (Scale Score 4-6) Acetaminophen 1,000 mg in 100 mls @ 400 mls/hr 03/02/25 12:08 03/02/25 12:48 Ofirmev IV 03/02/25 12:22 Infused ONCE ONE Infusion Ibuprofen 600 mg 02/26/25 21:47 03/12/25 18:05 Ibuprofen 600 Mg Tablet PO 600 mg Q8H PRN Administration Pain, Mild 1-3,fever,headache Iohexol 100 ml 03/06/25 16:27 03/06/25 16:28 Iohexol 350 Mg/Ml 100 Ml Infus..Btl IV 03/06/25 16:28 65 ml ONCE ONE Administration Lurasidone HCl 80 mg 02/23/25 23:15 02/24/25 00:15 Lurasidone Hcl 80 Mg Tablet PO 80 mg BEDTIME IMAN Administration Lurasidone HCl 80 mg 02/24/25 19:00 03/12/25 18:05 Lurasidone Hcl 80 Mg Tablet PO 80 mg DAILY@1900 IMAN Administration Magnesium Oxide 400 mg 02/27/25 09:00 03/13/25 09:25 Magnesium Oxide 400 Mg Tablet PO 400 mg DAILY IMAN Administration Morphine Sulfate 1 mg 02/23/25 01:32 02/23/25 02:14 Morphine Sulfate 2 Mg/Ml Cartridge IM 02/23/25 01:33 1 mg ONCE ONE Administration Protocol Omeprazole 20 mg 02/24/25 09:00 03/13/25 08:18 Omeprazole 20 Mg Capsule.Dr PO 20 mg DAILY IMAN Administration Oxycodone HCl 5 mg 02/22/25 22:29 02/22/25 22:46 Oxycodone Hcl Immed Release 5 Mg Tablet PO 02/22/25 22:30 5 mg ONCE ONE Administration Oxycodone HCl 5 mg 02/23/25 08:32 02/24/25 12:46 Oxycodone Hcl Immed Release 5 Mg Tablet PO 5 mg Q6H PRN Administration Pain, Severe (Pain Scale 7-10) Oxycodone HCl 5 mg 02/23/25 08:32 02/23/25 08:38 Oxycodone Hcl Immed Release 5 Mg Tablet PO 02/23/25 08:33 5 mg ONCE ONE Administration Oxycodone HCl 5 mg 03/02/25 09:28 03/03/25 08:58 Oxycodone Hcl Immed Release 5 Mg Tablet PO 5 mg Q6H PRN Administration Pain, Severe (Pain Scale 7-10) Oxycodone HCl 10 mg 03/02/25 22:17 03/03/25 06:10 Oxycodone Hcl Immed Release 5 Mg Tablet PO 03/02/25 22:18 Not Given ONCE ONE Polyethylene Glycol 17 gm 03/02/25 09:27 03/13/25 08:18 Polyethylene Glycol 3350 17 Gm Powd.Pack PO Not Given DAILY IMAN Tramadol HCl 50 mg 02/23/25 23:07 02/24/25 20:00 Tramadol Hcl 50 Mg Tablet PO 50 mg DAILY PRN Administration pain, mild Trazodone HCl 200 mg 02/23/25 23:15 03/12/25 21:39 Trazodone Hcl 100 Mg Tablet PO 200 mg BEDTIME IMAN Administration Vitamin D 25 mcg 02/24/25 09:00 03/13/25 08:18 Cholecalciferol (Vitamin D3) 25 Mcg Tablet PO 25 mcg DAILY IMAN Administration Zolpidem Tartrate 10 mg 02/23/25 23:04 03/04/25 20:04 Zolpidem Tartrate 5 Mg Tablet PO 10 mg BEDTIME PRN Administration Sleep Zolpidem Tartrate 10 mg 03/05/25 23:14 03/10/25 22:06 Zolpidem Tartrate 5 Mg Tablet PO 10 mg BEDTIME PRN Administration Sleep Zolpidem Tartrate 10 mg 03/11/25 21:00 03/12/25 21:39 Zolpidem Tartrate 5 Mg Tablet PO 10 mg BEDTIME IMAN Administration Medical Decision Making Medical Decision Making MDM Narrative: my interpretation of labs: Patient's white blood cell count 14.0, likely reactive leukocytosis, no clear source of infection. At this time, we do not have urinalysis yet. Chemistry within normal limits, normal LFTs my interpretation of x-rays of the hip/pelvis, fracture of the superior pubic ramus on the right, no hip fracture patient has difficulty walking up to the bathroom or even moving, we will insert Osborne catheter PT/case management consult pending physician observation started at 00:20 Differential Diagnosis Differential Diagnoses: The differential diagnosis associated with the presentation includes ( hip contusion, fracture, dislocation, UTI) Admission/Observation Consideration of admission/observation: Escalation of care including admission/observation considered ( given patient's mechanism of injury and symptoms, patient may need PT/case management. Patient is under physician observation) Lab Data MDM Lab Attestation statement: I reviewed the patient's lab results. 03/06/25 16:09 03/06/25 16:09 Labs: Lab Results 02/23/25 02/23/25 02/23/25 Range/Units 00:44 01:27 17:41 WBC 14.0 H 9.5 (4.8-10.8) X10*3/uL RBC 3.46 L 3.71 L (4.20-5.50) X10*6/uL Hgb 10.9 L 11.6 L (12.0-16.0) g/dl Hct 31.2 L 33.3 L (37.0-47.0) % MCV 90.2 89.8 (80.0-98.0) fL MCH 31.5 31.3 (27.0-33.0) pg MCHC 34.9 34.8 (31.0-35.0) g/dl RDW 14.7 14.8 (11.0-16.0) % Plt Count 195 158 L (160-400) X10*3/uL MPV 8.9 L 9.1 L (9.4-12.3) fL Immature Gran % (Auto) 0.5 H 0.3 (0.0-0.4) % Neut % (Auto) 84.0 H 74.9 H (45-73) % Lymph % (Auto) 7.2 L 12.9 L (20-40) % [place] % (Auto) 7.8 10.8 (2-11) % Eos % (Auto) 0.2 0.7 (0-4) % Baso % (Auto) 0.3 0.4 (0-2) % Lymph # (Auto) 1.0 L 1.2 (1.2-4.9) X10*3/uL [place] # (Auto) 1.1 1.0 (0.1-1.2) X10*3/uL Eos # (Auto) 0.0 0.1 (0.0-0.4) X10*3/uL Baso # (Auto) 0.0 0.0 (0.0-0.2) X10*3/uL Abs Immat Gran (auto) 0.07 H 0.03 (0.00-0.03) X10*3/uL Absolute Neuts (auto) 11.7 H 7.1 (2.0-8.3) x10*3/uL Absolute Nucleated RBC 0.000 0.000 (0.0-0.012) X10*3/uL Nucleated RBC % (auto) 0.0 0.0 (0.0-0.2) /100WBC Sodium 138 138 (135-145) mmol/L Potassium 4.0 3.6 (3.3-5.1) mmol/L Chloride 103 102 (96-108) mmol/L Carbon Dioxide 25 26 (22-29) mmol/L Anion Gap 14 14 (12-20) BUN 16 10 (9-16) mg/dL Creatinine 0.83 0.76 (0.5-1.4) mg/dL Estim Creat Clear Calc 60.4 65.9 Estimated GFR > 60 > 60 Random Glucose 117 H 121 H (60-115) mg/dL Calcium 8.2 L 8.0 L (8.4-10.2) mg/dL Total Bilirubin 0.4 (0.0-1.0) mg/dL Direct Bilirubin 0.2 (0.0-0.5) mg/dL AST 24 (5-31) U/L ALT 11 (0-31) U/L Alkaline Phosphatase 89 (39-117) U/L Troponin I High Sens (<3.5-17.0) ng/L B-Natriuretic Peptide (<100) pg/mL Total Protein 5.6 L (6.5-8.0) g/dL Albumin 3.3 L (3.5-5.0) g/dL Urine Color Yellow Urine Appearance Clear Urine pH 5.5 (5.0-9.0) Ur Specific [place] 1.015 (1.005-1.025) Urine Protein Negative (Neg-Trace) mg/dL Urine Glucose (UA) Negative (Negative) mg/dL Urine Ketones Negative (Negative) mg/dL Urine Blood Trace H (Negative) Urine Nitrite Negative (Negative) Ur Leukocyte Esterase Negative (Negative) Urine RBC 3-5 H (0-2) /HPF Urine WBC 0-5 (0-5) /HPF Ur Squamous Epith Cells 0-2 (0-2) /HPF Urine Bacteria None Seen (None Seen) Hyaline Casts 0-2 (0-2) /LPF Urine Opiates Screen Not Detected (Not Detect) Ur Buprenorphine Scrn Not Detected (Not Detect) ng/mL Ur Oxycodone Screen Positive H (Not Detect) ng/mL Urine Methadone Screen Not Detected (Not Detect) ng/mL Urine Fentanyl Screen Not Detected (Not Detect) Ur Barbiturates Screen Not Detected (Not Detect) Ur Phencyclidine Scrn Not Detected (Not Detect) Ur Amphetamines Screen Not Detected (Not Detect) U Benzodiazepines Scrn Not Detected (Not Detect) Urine Cocaine Screen Not Detected (Not Detect) U Marijuana (THC) Screen Not Detected (Not Detect) 03/06/25 Range/Units 16:09 WBC 8.2 (4.8-10.8) X10*3/uL RBC 3.31 L (4.20-5.50) X10*6/uL Hgb 10.5 L (12.0-16.0) g/dl Hct 30.9 L (37.0-47.0) % MCV 93.4 (80.0-98.0) fL MCH 31.7 (27.0-33.0) pg MCHC 34.0 (31.0-35.0) g/dl RDW 14.5 (11.0-16.0) % Plt Count 392 D (160-400) X10*3/uL MPV 8.4 L (9.4-12.3) fL Immature Gran % (Auto) 0.2 (0.0-0.4) % Neut % (Auto) 63.5 (45-73) % Lymph % (Auto) 23.3 (20-40) % [place] % (Auto) 8.5 (2-11) % Eos % (Auto) 4.0 (0-4) % Baso % (Auto) 0.5 (0-2) % Lymph # (Auto) 1.9 (1.2-4.9) X10*3/uL [place] # (Auto) 0.7 (0.1-1.2) X10*3/uL Eos # (Auto) 0.3 (0.0-0.4) X10*3/uL Baso # (Auto) 0.0 (0.0-0.2) X10*3/uL Abs Immat Gran (auto) 0.02 (0.00-0.03) X10*3/uL Absolute Neuts (auto) 5.2 (2.0-8.3) x10*3/uL Absolute Nucleated RBC 0.000 (0.0-0.012) X10*3/uL Nucleated RBC % (auto) 0.0 (0.0-0.2) /100WBC Sodium 139 (135-145) mmol/L Potassium 4.2 (3.3-5.1) mmol/L Chloride 99 (96-108) mmol/L Carbon Dioxide 32 H (22-29) mmol/L Anion Gap 12 (12-20) BUN 8 L (9-16) mg/dL Creatinine 1.00 (0.5-1.4) mg/dL Estim Creat Clear Calc 50.1 Estimated GFR 55 Random Glucose 101 (60-115) mg/dL Calcium 8.6 D (8.4-10.2) mg/dL Total Bilirubin 0.2 (0.0-1.0) mg/dL Direct Bilirubin (0.0-0.5) mg/dL AST 21 (5-31) U/L ALT < 6 (0-31) U/L Alkaline Phosphatase 147 H (39-117) U/L Troponin I High Sens < 2.7 (<3.5-17.0) ng/L B-Natriuretic Peptide 51 (<100) pg/mL Total Protein 5.9 L (6.5-8.0) g/dL Albumin 3.2 L (3.5-5.0) g/dL Urine Color Urine Appearance Urine pH (5.0-9.0) Ur Specific [place] (1.005-1.025) Urine Protein (Neg-Trace) mg/dL Urine Glucose (UA) (Negative) mg/dL Urine Ketones (Negative) mg/dL Urine Blood (Negative) Urine Nitrite (Negative) Ur Leukocyte Esterase (Negative) Urine RBC (0-2) /HPF Urine WBC (0-5) /HPF Ur Squamous Epith Cells (0-2) /HPF Urine Bacteria (None Seen) Hyaline Casts (0-2) /LPF Urine Opiates Screen (Not Detect) Ur Buprenorphine Scrn (Not Detect) ng/mL Ur Oxycodone Screen (Not Detect) ng/mL Urine Methadone Screen (Not Detect) ng/mL Urine Fentanyl Screen (Not Detect) Ur Barbiturates Screen (Not Detect) Ur Phencyclidine Scrn (Not Detect) Ur Amphetamines Screen (Not Detect) U Benzodiazepines Scrn (Not Detect) Urine Cocaine Screen (Not Detect) U Marijuana (THC) Screen (Not Detect) Independent Interpretation I performed an independent interpretation of an: Plain X-Ray Critical Care Time Critical Care Time Critical Care Time: Yes Total Critical Care Time: 45 Attestation: I have personally provided critical care time. Time includes review of lab data, radiology results, discussion with consultants, and monitoring for potential decompensation. Intervention performed as documented. Discharge Plan Discharge Clinical Impression: Fall Qualifiers: Encounter type: initial encounter Qualified Code(s): W19.XXXA - Unspecified fall, initial encounter Patient Disposition: er Inpatient Rehab Fac Transfer Details: [facility] Prescriptions: New hydromorphone [Dilaudid] 2 mg tablet 2 mg PO Q6H PRN (Reason: severe break through pain) Qty: 3 0RF Rx Instructions: Partial Fill upon patient request. No Action escitalopram oxalate 20 mg tablet 20 mg PO BEDTIME alendronate 70 mg tablet 70 mg PO ALFRED hydroxyzine HCl 50 mg tablet 15 mg PO BEDTIME PRN (Reason: Pain (Scale Score 4-6)) simvastatin 20 mg tablet 20 mg PO BEDTIME zolpidem 10 mg tablet 10 mg PO BEDTIME MDD bedtime PRN (Reason: Sleep) lurasidone 40 mg tablet 80 mg PO BEDTIME tramadol 50 mg tablet 50 mg PO NEEDED PRN (Reason: Pain) turmeric 400 mg Capsule 400 mg PO DAILY calcium carbonate [Calcium 600] 600 mg calcium (1,500 mg) Tablet 600 mg PO DAILY ascorbic acid (vitamin C) [Vitamin C] 500 mg Tablet,Chewable 500 mg PO DAILY diclofenac sodium 1 % Gel 2 g TOPICAL QID PRN (Reason: Pain) Rx Instructions: apply to single elbow, wrist or hand; for hand includes palm/fingers/back of hand cyclobenzaprine 10 mg tablet 10 mg PO TID PRN (Reason: Pain) Rx Instructions: PRN per pt trazodone 100 mg tablet 200 mg PO BEDTIME magnesium 250 mg tablet 250 mg PO DAILY cholecalciferol (vitamin D3) 25 mcg (1,000 unit) capsule 25 mcg PO DAILY esomeprazole magnesium [Nexium 24HR] 20 mg capsule,delayed release(DR/EC) 20 mg PO DAILY Qty: 90 3RF Referrals: [facility] [place] [facility] Orthopedic Surgeons [Provider Group] - 03/18/25 1:30 pm Referral Note: Please call the office to reschedule if you're unable to attend this visit. [facility] [Outside] Referral Note: [address] [place] [address] [facility] [place] [phone] Jewels Joseph PA-C [Primary Care Provider, Internal Medicine] Interventions: ED Discharge Assessment Last Done: 03/13/25 12:18 Discharge Date/Time: 03/13/25 12:19 Print Language: Korean
[2025-02-22 23:32] VITALS: BP 170/85; PULSE 81; RESP 18; TEMP 36.7; O2SAT 97
[2025-02-22 23:52] VITALS: RESP 16
--- NOTE | 2025-02-22 23:53 | PC.NURSE ---
Pt returned from CT Pt a&ox4, no signs of distress Pt on cell phone. Pt reports 8/10 pain with no relief from previous meds given Plan of care ongoing.
[2025-02-23] VITALS (11 sets, daily range): BP systolic 120–186; BP diastolic 73–99; PULSE 66–87; RESP 10–18; TEMP 36.1–37.1; O2SAT 73–99
[2025-02-23 00:49] LABS: MANUAL DIFF FLAG NO
[2025-02-23 00:50] LABS: Hematocrit 31.2 % (37.0-47.0); Hemoglobin 10.9 g/dl (12.0-16.0); Imm Gran Abs Auto 0.07 X10*3/uL (0.00-0.03); Imm Gran Pct Auto 0.5 % (0.0-0.4); Lymphocytes Absolute Auto 1.0 X10*3/uL (1.2-4.9); Mean Corpuscular HGB Conc 34.9 g/dl (31.0-35.0); Mean Corpuscular Hemoglobin 31.5 pg (27.0-33.0); Mean Corpuscular Volume 90.2 fL (80.0-98.0); NRBC Abs Auto 0.000 X10*3/uL (0.0-0.012); NRBC Pct Auto 0.0 /100WBC (0.0-0.2); Platelet Count 195 X10*3/uL (160-400); Red Blood Count 3.46 X10*6/uL (4.20-5.50); White Blood Count 14.0 X10*3/uL (4.8-10.8)
[2025-02-23 01:03] LABS: Alanine Aminotransferase 11 U/L (0-31); Albumin Level 3.3 g/dL (3.5-5.0); Alkaline Phosphatase 89 U/L (39-117); Anion Gap 14 (12-20); Aspartate Amino Transferase 24 U/L (5-31); Blood Urea Nitrogen 16 mg/dL (9-16); Calcium 8.2 mg/dL (8.4-10.2); Carbon Dioxide 25 mmol/L (22-29); Chloride 103 mmol/L (96-108); Creatinine Clr Calc Pharmacy 60.4; Estimated Glomerular Filt Rate > 60; Potassium 4.0 mmol/L (3.3-5.1); Sodium 138 mmol/L (135-145); Total Protein 5.6 g/dL (6.5-8.0)
[2025-02-23 01:34] LABS: Appearance Urine Clear; Glucose Urine UA Negative (Negative); PH 5.5 (5.0-9.0); Specific Gravity - Urine 1.015 (1.005-1.025); UMIC TRIGGER UACC YES
[2025-02-23 01:45] LABS: Cannabinoid Screen Urine Not Detected (Not Detect)
--- NOTE | 2025-02-23 02:19 | PC.NURSE ---
Pt medicated per [facility] Plan of care ongoing.
--- NOTE | 2025-02-23 05:38 | MHC.EDTECH ---
This commissioner of conciliation emptied 825 ml of clear yellow urine from patient's osborne catheter. Patient has been comfortable on stretcher watching shows on her phone.
[2025-02-23] MEDS: oxyCODONE HCl Immed Release 5 MG TABLET PO (08:38)
--- NOTE | 2025-02-23 15:13 | MHC.EDTECH ---
patient put in a hospital bed
--- NOTE | 2025-02-23 16:42 | MHC.CM.PN ---
CM RECEIVED CM CONSULT FROM ED PROVIDER, EMR REVIEWED, PT W/R SUPERIOR/ANTERIOR PUBIC NAZ FX'S AND R ANTERIOR ACETABULAR COLUMN FX, CM MET W/PT WHO REPORTS SHE LIVES ALONE, DENIES USE OF DME OR HOME SERVICES, PT IS INDEP AT BASELINE. PT HAS STRAIGHT MEDICARE ONLY AND PER ED PROVIDER ORTHO DID CONFIRM PT WILL NEED TO BE NWB, ANTIC NWB FOR AT LEAST 6WKS, PT NOT CANDIDATE FOR ACUTE REHAB D/T LENGTH OF NWB STATUS. PT REPORTED SHE DOES NOT HAVE MH OR FUNDS TO PRIVATE PAY FOR STR. PER PT REQUEST CM CONTACTED PT'S DTR MALIKA AT [phone], MALIKA IS PRETTY INSISTENT THAT PT SHOULD BE ADMITTED HOWEVER CM DID LET HER KNOW SHE HAS NOT QUALIFIED AND FX'S ALONE DON'T NECESSARILY QUALIFY A PT FOR ADMISSION. MALIKA DOES REPORT THAT PT HAD MH AT ONE POINT HOWEVER IT LAPSED, REFERRAL TO BE PLACED TO FS PT IS UNABLE TO RETURN HOME AND DOES NOT HAVE A PAYOR FOR SNF W/OUT 3NIGHT ADMISSION. MALIKA VERIFIED THAT SHE IS UNABLE TO TAKE HER IN SHE WOULD NOT HAVE EXTRA SPACE/BEDROOM FOR PT AND THAT PT'S SON LIVES IN [place].
[2025-02-23 17:48] LABS: MANUAL DIFF FLAG NO
[2025-02-23 17:50] LABS: Hematocrit 33.3 % (37.0-47.0); Hemoglobin 11.6 g/dl (12.0-16.0); Imm Gran Abs Auto 0.03 X10*3/uL (0.00-0.03); Imm Gran Pct Auto 0.3 % (0.0-0.4); Lymphocytes Absolute Auto 1.2 X10*3/uL (1.2-4.9); Mean Corpuscular HGB Conc 34.8 g/dl (31.0-35.0); Mean Corpuscular Hemoglobin 31.3 pg (27.0-33.0); Mean Corpuscular Volume 89.8 fL (80.0-98.0); NRBC Abs Auto 0.000 X10*3/uL (0.0-0.012); NRBC Pct Auto 0.0 /100WBC (0.0-0.2); Platelet Count 158 X10*3/uL (160-400); Red Blood Count 3.71 X10*6/uL (4.20-5.50); White Blood Count 9.5 X10*3/uL (4.8-10.8)
[2025-02-23 18:05] LABS: Anion Gap 14 (12-20); Blood Urea Nitrogen 10 mg/dL (9-16); Calcium 8.0 mg/dL (8.4-10.2); Carbon Dioxide 26 mmol/L (22-29); Chloride 102 mmol/L (96-108); Creatinine Clr Calc Pharmacy 65.9; Estimated Glomerular Filt Rate > 60; Potassium 3.6 mmol/L (3.3-5.1); Sodium 138 mmol/L (135-145)
--- NOTE | 2025-02-23 23:35 | PC.NURSE ---
med rec completed with pt at bedside. pt aware of all medication/vitamins/supplements she takes. ordered by provider. not included in med rec: beet root, turmeric, grape seed extract, vitamin C, calcium
[2025-02-24 01:25] VITALS: BP 122/80; PULSE 102; RESP 18; O2SAT 93
--- NOTE | 2025-02-24 01:25 | PC.NURSE ---
pt resting comfortably at this time. call rach w/in reach, no apparent distress noted
[2025-02-24 06:54] VITALS: BP 159/90; PULSE 97; RESP 16; O2SAT 90
[2025-02-24 10:11] VITALS: BP 134/86; PULSE 91; RESP 16; TEMP 36.1; O2SAT 95
[2025-02-24] MEDS: oxyCODONE HCl Immed Release 5 MG TABLET PO (12:46)
[2025-02-24 13:35] VITALS: BP 165/93; PULSE 91; RESP 16; TEMP 36.7; O2SAT 94
--- NOTE | 2025-02-24 15:30 | MHC.CM.PN ---
REFERRAL EMAILED TO FS TO DETERMINE IF PT'S MH CAN BE REINSTATED SHE IS UNABLE TO GO HOME D/T NWB STATUS D/T PELVIC FX'S. CM WILL CONT TO FOLLOW
--- NOTE | 2025-02-24 15:53 | PC.NURSE ---
Patient c/o of right hip pain rated 9/10, administered PRN oxycodone with good effect. Repositioned patient in bed by moving lower extremeties. +CMS +ROM. Patient resting comfortably at this time
[2025-02-24 22:21] VITALS: BP 120/75; PULSE 98; RESP 16; O2SAT 89
[2025-02-25 05:27] VITALS: BP 96/57; PULSE 91; RESP 16; O2SAT 95
--- NOTE | 2025-02-25 07:36 | PC.NURSE ---
patient a&ox3, vss, pt osborne cath patient/draining clear yellow urine, rr equal/non labored- lungs clear, pt on O2 as she dips down while sleeping, pt states my pain is a 6/10 but I am ok as long as I stay still call loyd within reach, plan of care ongoing
[2025-02-25 08:45] VITALS: BP 112/66; PULSE 93; RESP 18; O2SAT 96
--- NOTE | 2025-02-25 11:05 | PC.NURSE ---
pt moving to overflow, report given to Rowena via telephone.
--- NOTE | 2025-02-25 12:01 | PC.NURSE ---
Assumed care of this patient at this time upon transfer to Overflow unit, patient alert and oriented, patient c/o 01/31 pain, FC emptied. Provider to be contacted for code status
--- NOTE | 2025-02-25 12:02 | MHC.CM.PN ---
Addendum entered by Geovanna Kirk RN 02/25/25 12:15: PER CONVERSATION WITH BHAVIN, PATIENT WILL NEED TO COMPLETE A NEW MH APPLICATION FOR 65+. [id number]. Original Note: CALL FROM DAUGHTER, MALIKA, WHO STATES THAT NOBODY FROM [facility] HAS CONTACTED HER ABOUT WHAT DOCUMENTS ARE REQUIRED FOR [facility]. TIGER TEXT TO FINANCIAL COUNSELOR, BHAVIN. OF THIS NOTE, NO RESPONSE RECEIVED. CM WILL UPDATE THIS NOTE ONCE MORE INFO RECEIVED
[2025-02-25 12:24] VITALS: BP 105/63; PULSE 90; RESP 20; TEMP 36.6; O2SAT 94
--- NOTE | 2025-02-25 12:30 | MHC.EDTECH ---
Pt brought over from ED14 to OF4, skin on front side appears dry with non-redness. T/W was unable to check pt's backside d/t fracture. Vitals obtained, bed alarm on, call loyd within reach.
--- NOTE | 2025-02-25 13:01 | MHC.EDTECH ---
pt consumed about 30% of lunch tray. ate independently
--- NOTE | 2025-02-25 14:46 | PHA.MEDREC ---
Addendum entered by Cristian Max, PharmD 02/25/25 14:53: reviewed Original Note: Pharmacy Consult ? Medication Reconciliation Pharmacy has completed the medication reconciliation. Spoke with pt and she confirmed her medications. Per pt, she still takes Alendronate once a week on Sundays; pt last took it 2 Sundays ago (02/17) and Simvastatin 20mg, despite claims showing it being last filled 09/20 at a [facility] pharmacy from [place]; they state they transferred that to [facility], I called [facility] and they have no history of that med being transferred to their facility.
[2025-02-25 16:33] VITALS: BP 101/72; PULSE 92; RESP 16; TEMP 35.7; O2SAT 93
[2025-02-25 21:32] VITALS: BP 124/73; PULSE 92; RESP 18; TEMP 37; O2SAT 91
[2025-02-26 06:00] VITALS: BP 125/75; PULSE 95; RESP 16; TEMP 36.6; O2SAT 93
--- NOTE | 2025-02-26 06:20 | PC.NURSE ---
sats 89-92% on RA, pt denies feeling sob, resp even and unlabored placed on 1L NC with good effect.
--- NOTE | 2025-02-26 10:32 | MHC.CM.ED ---
Addendum entered by Caren Hernandez 02/26/25 14:52: Received callback from Gwendolyn in financial: pt did not have [facility] previously only HSN. A new application will need to be initiated. Gwendolyn has spoken to pt's dtr and requested financial documents to start the application. Pt cannot transfer to [facility] as she does not have a medicare qualifying stay or secondary payor. ED CM to follow. Original Note: Message left with Amy from [facility] [place] counseling inquiring on new MH application to restart MH. Awaiting callback. No referrals made at this time.
[2025-02-26 14:00] VITALS: BP 115/70; PULSE 100; RESP 18; TEMP 36.9; O2SAT 90
[2025-02-26 20:05] VITALS: BP 114/68; PULSE 96; RESP 16; TEMP 36.8; O2SAT 93
--- NOTE | 2025-02-26 20:14 | PC.NURSE ---
Patient awake and alert, skin pwd, resp even and non labored, speaking in full, clear sentences w/ friends who are present at bedside. medicated per MAR. patient c/o increased right pelvic pain of 9/10 at this time. patient states that the dilaudid is working for about 4.5-5 hours then pain is spiking again, provider aware. patient repositioned to a position of comfort, positive csm to bilateral lower extremities.
--- NOTE | 2025-02-26 21:23 | PC.NURSE ---
medicated w/ prn dilaudid per order for 04/03 right pelvic pain
[2025-02-26 22:47] VITALS: BP 137/70
[2025-02-26 22:53] VITALS: RESP 16; O2SAT 91
[2025-02-26 22:54] VITALS: RESP 16
[2025-02-27 05:48] VITALS: BP 144/79; PULSE 80; RESP 14; TEMP 36.8; O2SAT 96
[2025-02-27 14:00] VITALS: BP 114/69; PULSE 84; RESP 18; TEMP 36.8; O2SAT 95
--- NOTE | 2025-02-27 18:09 | PC.NURSE ---
Assume care approx 1600.? Pt alert and Oriented, Clear lung sounds on RA, eat 25 % of dinner. Reposition maintained. Reagan catheter in place, patent/ draining. Family at bedside.
[2025-02-27 19:50] VITALS: BP 118/73; PULSE 84; RESP 20; TEMP 36.3; O2SAT 93
--- NOTE | 2025-02-27 20:51 | MHC.CM.ED ---
Per FS, no previous MH. Pt makes about 10,000 dollars too much for MH. FS will submits for frail elder waiver. Pt is non weight bearing. Multiple pelvic fractures.
[2025-02-28 06:00] VITALS: BP 143/71; PULSE 86; RESP 12; O2SAT 93
--- NOTE | 2025-02-28 09:31 | PC.NURSE ---
Pt c/o pain 04/03; pt medicated per orders with +decrease to 11/01; vss@baseline
--- NOTE | 2025-02-28 12:10 | PC.NURSE ---
Addendum entered by Era Ascencio RN 02/28/25 12:12: Patient is a 69 yo female who presents s/p mechanical fall. Right superior and inferior pubic rami fractures. Right anterior acetabular column fracture. Ortho recommended NWB for 6 weeks, this is an opstacle for rehab placement. [facility] reinstatement pending will need this active for STR search process. Patiennt alert and oriented. Respirations even and non-labored. Abdomen soft, non-tender with positive bowel sounds. Reagan patent and intact, draining yellow urine. Positive pedal pulses with no edema noted. Original Note: Medical History Preventative health care Osteoarthritis Anemia GERD (gastroesophageal reflux disease) Depression Osteoporosis CKD (chronic kidney disease) Skin mole Right hip pain Sciatica Establishing care with new doctor, encounter for Bipolar disorder Arthritis HLD (hyperlipidemia) HTN (hypertension)
[2025-02-28 14:34] VITALS: BP 160/73; PULSE 82; RESP 15; TEMP 36.7; O2SAT 98
[2025-02-28 22:00] VITALS: BP 160/84; PULSE 80; RESP 16; TEMP 37; O2SAT 94
--- NOTE | 2025-03-01 01:11 | PC.NURSE ---
Assumed care of pt at approximately 2310. Pt resting in bed, eyes closed, RR even and unlabored. No apparent distress at this time. 2L Nasal cannula on pt at this time. Call loyd within reach. Plan of care on going.
--- NOTE | 2025-03-01 05:32 | PC.NURSE ---
PAIN BETTER, PT RESTING QUIETLY. 01/01.
[2025-03-01 06:00] VITALS: BP 128/82; PULSE 85; RESP 14; TEMP 36.9; O2SAT 93
[2025-03-01 07:37] VITALS: BP 133/70; PULSE 82; RESP 16; TEMP 36.6; O2SAT 95
--- NOTE | 2025-03-01 10:27 | PC.NURSE ---
assumed care of patient at 0700, patient is awake, alert and oriented. patient given breakfast tray, medicated per SEP for pain. described pain as 6/10 and requested ibuprofen. patient cleaned up an repositioned as requested. at this time resting quietly, no distress noted.
[2025-03-01 14:00] VITALS: BP 137/79; PULSE 77; RESP 16; TEMP 37.1; O2SAT 99
--- NOTE | 2025-03-01 19:45 | PC.NURSE ---
Pharmacy contacted for Latuda dose.
[2025-03-01 20:00] VITALS: BP 129/75; PULSE 70; RESP 16; TEMP 36.8; O2SAT 98
[2025-03-01 22:00] VITALS: BP 132/71; PULSE 74; RESP 12; TEMP 36.9; O2SAT 97
[2025-03-02 05:45] VITALS: BP 141/63; PULSE 78; RESP 12; TEMP 36.7; O2SAT 92
--- NOTE | 2025-03-02 08:30 | PC.NURSE ---
It was noted this morning that the patients narcotic pain meds had dropped off/dc'd, pt was complaining of increased pain and asked for them to be administered, pt also requesting bowel regume and mirilax in particular. provider was notified and will be over to speak with the patient.
--- NOTE | 2025-03-02 08:30 | PC.NURSE ---
pharmacy notified for messing medications
--- NOTE | 2025-03-02 08:39 | PC.NURSE ---
patient a&ox3, vss, pt rr equal/non labored, + csm/pulses to RLE, pt c/o 01/01 pain- narcotic pain meds have been dc'd which pt feels worked well to decrease the pain more- provider was notified and has come to OF to speak with pt. osborne cath patient/draining clear yellow urine, call loyd within reach, awaiting medications from pharmacy to give AM meds, plan of care ongoing
--- NOTE | 2025-03-02 08:49 | MHC.EDTECH ---
Emptied patient osborne.
[2025-03-02 10:16] VITALS: BP 159/75; PULSE 90; TEMP 36.2; O2SAT 92
[2025-03-02] MEDS: oxyCODONE HCl Immed Release 5 MG TABLET PO ×2 (10:20→18:03)
--- NOTE | 2025-03-02 10:28 | PC.NURSE ---
pt medicated for 7/10 pain per order.
--- NOTE | 2025-03-02 12:13 | PC.NURSE ---
patient requesting pain medication for 8/10 pain, stating the oxycodone on its own isnt working for her. ibuprofen and acetaminophen orders are for pain scales of 1-2 provider was notified of this and of the patient request for additional medication. awaiting new orders.
--- NOTE | 2025-03-02 12:35 | PC.NURSE ---
pt willing to try the IV ofirmev before taking the dilaudid to see if the non narcotic would help her pain which is currently 03/03. if her pain doesnt lessen, this nurse will medicate with the dilaudid as ordered.
[2025-03-02 14:52] VITALS: BP 119/74; PULSE 72; TEMP 36.3; O2SAT 91
--- NOTE | 2025-03-02 18:04 | PC.NURSE ---
pt c/o 01/31 rle pain, pt medicated with oxycodone per order
[2025-03-02 20:37] VITALS: BP 157/77; PULSE 77; RESP 18; TEMP 37; O2SAT 91
[2025-03-03 06:00] VITALS: BP 157/72; PULSE 72; RESP 18; TEMP 36.6; O2SAT 93
[2025-03-03 08:12] VITALS: BP 154/72; PULSE 72; RESP 16; TEMP 36.6; O2SAT 94
[2025-03-03] MEDS: oxyCODONE HCl Immed Release 5 MG TABLET PO (08:58)
--- NOTE | 2025-03-03 09:39 | MHC.CM.ED ---
Pt remains holding in the ED awaiting frail elder waiver application completion for STR placement. Pt does not qualify for [facility] per [facility]. No facility arranged at this time. ED CM to follow
--- NOTE | 2025-03-03 12:32 | PC.NURSE ---
Addendum entered by Melida Aleman RN 03/03/25 15:38: Pt still reporting 10/10 pain, provider notified and new orders in place. Pt medicated per SEP. Original Note: Pt medicated per SEP for report of 10/10 pain to right hip with no effect, provider notified. Pt offered to reposition in bed, pt declined.
[2025-03-03 13:55] VITALS: BP 121/66; PULSE 83; RESP 18; TEMP 36.7; O2SAT 92
--- NOTE | 2025-03-03 16:26 | PC.NURSE ---
Pt reports feeling much better after receiving PO dilaudid. Reports pain decreased to 6/10 and states she feels this is tolerable.
[2025-03-03 22:17] VITALS: BP 142/73; PULSE 78; RESP 14; TEMP 37.2; O2SAT 94
[2025-03-04 06:00] VITALS: BP 139/73; PULSE 68; RESP 16; TEMP 36.9; O2SAT 95
--- NOTE | 2025-03-04 06:16 | PC.NURSE ---
Pt remains in overflow awaiting safe disposition plan. Pt A/O x4, able to call appropriately and make needs known. VSS on RA. Reported 9/10 pain to R leg and low back, requested pain medication and stated Dilaudid works better for the pain. ED provider changed PRN Oxycodone to Dilaudid with positive pain relief 6/10 for patient who states tolerable at this level. No issues overnight. Call loyd and belongings placed within reach.
--- NOTE | 2025-03-04 09:03 | PC.NURSE ---
This RN assumed care of patient @ 0700. Patient was resting comfortably in bed, rates pain 6/10 but doesnt want any pain medication at this time. Adminstered AM medications per SEP, Reagan in place draining yellow urine. Call beel in reach. Plan of care on going
--- NOTE | 2025-03-04 12:50 | PC.NURSE ---
Patient had medium formed BM. After being cleaned up patient requested PRN Dilaudid rated pain 6/10, administered per MAR Effectiveness pending.
[2025-03-04 13:45] VITALS: BP 107/59; PULSE 77; RESP 16; TEMP 36.7; O2SAT 93
[2025-03-04 19:42] VITALS: BP 128/63; PULSE 76; RESP 16; TEMP 36.7; O2SAT 92
--- NOTE | 2025-03-05 04:51 | PC.NURSE ---
No events last night, patient pleasant, calm, cooperative. Remains non weight bearing. Dilaudid for pain control. BM overnight, osborne cathter in place. Using IS, very high risk for pna d/t lack of mobility and patient was made aware and understand that fact. All safety measures in place.
[2025-03-05 05:34] VITALS: BP 134/66; PULSE 68; RESP 16; TEMP 36.4; O2SAT 98
--- NOTE | 2025-03-05 07:46 | PC.NURSE ---
Addendum entered by Era Ascencio RN 03/05/25 07:48: Pt remains holding in the ED awaiting frail elder waiver application completion for STR placement. Pt does not qualify for [facility] per [facility] [place]. Original Note: Patient is a 69 yo female who presents s/p mechanical fall. Right superior and inferior pubic rami fractures. Right anterior acetabular column fracture. Ortho recommended NWB for 6 weeks, this is an continues to be an obstacle for rehab placement. Patiennt alert and oriented. Respirations even and non-labored. Abdomen soft, non-tender with positive bowel sounds. Reagan patent and intact, draining yellow urine. Positive pedal pulses with no edema noted. Original Note: Medical History Preventative health care Osteoarthritis Anemia GERD (gastroesophageal reflux disease) Depression Osteoporosis CKD (chronic kidney disease) Skin mole Right hip pain Sciatica Establishing care with new doctor, encounter for Bipolar disorder Arthritis HLD (hyperlipidemia) HTN (hypertension)
[2025-03-05 14:00] VITALS: BP 137/61; PULSE 73; RESP 18; TEMP 36.6; O2SAT 96
[2025-03-05 20:20] VITALS: BP 140/66; PULSE 73; RESP 20; TEMP 36.9; O2SAT 96
--- NOTE | 2025-03-05 21:55 | PC.NURSE ---
pt requested tylenol and ibuprofen for pain despite 7/10 pain level . PT medicated as per MAR
[2025-03-06 06:43] VITALS: BP 134/68; PULSE 68; RESP 20; TEMP 36.5; O2SAT 92
--- NOTE | 2025-03-06 08:31 | PC.NURSE ---
PT A&O X4 VSS states pelvic pain and asking for med. Otherwise no complaints. Eating bkfst.
[2025-03-06 13:10] VITALS: O2SAT 92
--- NOTE | 2025-03-06 13:14 | MHC.CM.ED ---
Addendum entered by Leesa Armendariz 03/06/25 14:16: Bertha Dumont PA: JEFFRY. Outpatient follow up in the office 1-2 weeks after d/c. Addendum entered by Leesa Armendariz 03/06/25 13:17: Patient is currently on oxygen. Patient is not on home oxygen at baseline. Original Note: Patient remains in ER overflow. [facility] application was submitted by Gwendolyn from [facility] Financial Counselors. Gwendolyn is out of the hospital for the week. Unable to obtain copy of application. Met with patient bedside. Patient's daughter, Letitia, joined the conversation via telephone. Letitia reports patient only receives her SSI monthly. Has no other accounts, pensions, or other assets. Patient does own her home. Patient has a pubic ramus fracture and is required to be 100% non-weight bearing at this time. Patient lives alone. Patient is unable to stay with her daughter because Letitia works. Letitia will complete Medicaid Questionnaire. Referral for [facility] pending will be broadcasted at this time. Continue to monitor for d/c needs.
[2025-03-06 13:56] VITALS: PULSE 76; O2SAT 92
[2025-03-06 14:00] VITALS: BP 142/67; PULSE 76; RESP 18; TEMP 36.4; O2SAT 93
--- NOTE | 2025-03-06 14:56 | PC.NURSE ---
Pt A&O X4 VSS NAD- Repositioned for comfort- FC patent draining clear yellow urine. O2 sat remains 92% on RA RR 16. Pt jef PO well Provider aware of O2.
--- NOTE | 2025-03-06 15:03 | ECG_ITS ---
Test Reason : sob Blood Pressure : */* mmHG Vent. Rate : 72 BPM Atrial Rate : 72 BPM P-R Int : 126 ms QRS Dur : 78 ms QT Int : 378 ms P-R-T Axes : 45 43 54 degrees QTcB Int : 413 ms Normal sinus rhythm Normal ECG When compared with ECG of 28-Jun-2024 18:00, No significant change was found Referred By: Courtney Sykes Electronically Signed By: Blue Rhodes
--- NOTE | 2025-03-06 15:12 | PC.NURSE ---
Pt aware of updated plan by provider. I inquired with provider about DVT prophylaxis. Report givento main ED for pt move.
[2025-03-06 15:53] VITALS: BP 153/67; PULSE 77; RESP 24; O2SAT 95
--- NOTE | 2025-03-06 15:54 | PC.NURSE ---
Assumed care of 69 F, R hip fracture from overflow, has been here a few days. Pt was A+OX4, calm, cooperative. RR even and unlabored, on 2L NC d/t desatting at 89 on RA, now at 95% on 2L. Pt denies CP or SOB. Lung sounds clear bilat.
[2025-03-06 16:13] LABS: MANUAL DIFF FLAG NO
[2025-03-06 16:16] LABS: Hematocrit 30.9 % (37.0-47.0); Hemoglobin 10.5 g/dl (12.0-16.0); Imm Gran Abs Auto 0.02 X10*3/uL (0.00-0.03); Imm Gran Pct Auto 0.2 % (0.0-0.4); Lymphocytes Absolute Auto 1.9 X10*3/uL (1.2-4.9); Mean Corpuscular HGB Conc 34.0 g/dl (31.0-35.0); Mean Corpuscular Hemoglobin 31.7 pg (27.0-33.0); Mean Corpuscular Volume 93.4 fL (80.0-98.0); NRBC Abs Auto 0.000 X10*3/uL (0.0-0.012); NRBC Pct Auto 0.0 /100WBC (0.0-0.2); Platelet Count 392 X10*3/uL (160-400); Red Blood Count 3.31 X10*6/uL (4.20-5.50); White Blood Count 8.2 X10*3/uL (4.8-10.8)
[2025-03-06] MEDS: iohexoL 350 MG/ML 100 ML INFUS..BTL IV (16:28)
[2025-03-06 16:33] LABS: Alanine Aminotransferase < 6 U/L (0-31); Albumin Level 3.2 g/dL (3.5-5.0); Alkaline Phosphatase 147 U/L (39-117); Anion Gap 12 (12-20); Aspartate Amino Transferase 21 U/L (5-31); Blood Urea Nitrogen 8 mg/dL (9-16); Calcium 8.6 mg/dL (8.4-10.2); Carbon Dioxide 32 mmol/L (22-29); Chloride 99 mmol/L (96-108); Creatinine Clr Calc Pharmacy 50.1; Estimated Glomerular Filt Rate 55; Potassium 4.2 mmol/L (3.3-5.1); Sodium 139 mmol/L (135-145); Total Protein 5.9 g/dL (6.5-8.0)
[2025-03-06 16:36] LABS: Troponin-I High Sensitivity < 2.7 ng/L (<3.5-17.0)
[2025-03-06 16:48] LABS: B Type Natriuretic Peptide 51 pg/mL (<100)
[2025-03-07 06:00] VITALS: BP 125/68; PULSE 76; RESP 16; TEMP 36.4; O2SAT 92
--- NOTE | 2025-03-07 12:53 | PC.NURSE ---
Assumed care of pt approx 0700, A/O x 3 and resting quietly in bed. NWB x 6 weeks per ortho recc. Respirations even and unlabored, denies any SOB. Calm and cooperative with care, took mediations whole with water. Reports pain to right hip, prn Dilaudid admin per MAR with + effect. Reagan cath in place, draining CYU. Pending insurance/rehab placement.
--- NOTE | 2025-03-07 12:54 | MHC.CM.ED ---
Patient remains in ER overflow. No bed offers for STR at this time. [facility] is only facility still reviewing at this time. Referral broadcasted within 50 miles of patient's home. Continue to monitor for d/c needs.
[2025-03-07 13:43] VITALS: BP 121/63; PULSE 65; RESP 16; TEMP 36.6; O2SAT 93
[2025-03-07 19:53] VITALS: BP 119/59; PULSE 77; RESP 17; TEMP 37.2; O2SAT 95
--- NOTE | 2025-03-07 20:51 | PC.NURSE ---
pt a&O, no sign of distress, medicated per mar, and reposition for comfort.
--- NOTE | 2025-03-08 01:28 | PC.NURSE ---
pt reposition and medicated per sep. Okay to give medication early provider aware.
--- NOTE | 2025-03-08 03:28 | MHC.EDTECH ---
This tech took over care of pt at 0300am, rounds completed,introduced self to pt, patient was repositioned and given a back rub, patient is resting quietly, bed alarm on for safety. call loyd in reach
--- NOTE | 2025-03-08 03:55 | PC.NURSE ---
pt repositioned for comfort, medicated per mar.
[2025-03-08 06:00] VITALS: BP 134/60; PULSE 70; RESP 16; TEMP 36.6; O2SAT 96
--- NOTE | 2025-03-08 06:04 | PC.NURSE ---
pt medicated per mar.
--- NOTE | 2025-03-08 06:08 | MHC.EDTECH ---
Hourly rounds and vitals completed, patient given a cup of tea per request,pt is resting comfortable at this time,call loyd within reach
--- NOTE | 2025-03-08 06:34 | MHC.EDTECH ---
Emptied 725MLS of yellow urine from Reagan.
--- NOTE | 2025-03-08 08:07 | PC.NURSE ---
patient a&ox3, vss, rr equal/non labored, pt previously medicated for pain states currently 01/01, scd boots intact, pt encouraged to use IS at bedside, osborne cath patient/draining, pharmacy contacted for patients medications- will medicate upon their arrival, call loyd within reach, plan of care ongoing.
[2025-03-08 10:29] VITALS: BP 134/60; PULSE 70; O2SAT 96
--- NOTE | 2025-03-08 12:58 | PC.NURSE ---
patient medicated for 01/01 pain
--- NOTE | 2025-03-08 13:07 | PC.NURSE ---
osborne per request of provider, osborne cath was removed and pt now has pure wick in place.
--- NOTE | 2025-03-08 13:20 | PC.NURSE ---
PT/OOB this afternoon PT came to see patient got the pt oob stand/pivot to recliner chair non weight bearing to rt leg. PT then stated they had spoke with Gordo Reyes who did not want the patient oob and she wanted this clarified, additionally our director Magaly wanted this clarified as well. THis nurse messaged Gordo asking for clarificatin if she should be 100% bedfast and if so for how long OR if pt can be allowed to stand/pivot without bearing weight to rt leg. He was told the pt did tolerate the oob to chair well. His response is as follows Would be best for the patient to be totally non-weight bearing, however, if this is not tolerable for her, she should at least be non weight bearing on the right lower extremity, likely for three months post injury. This clarification was sent to Emily YANG in the ED overlooking the patient for today as well as Magaly Benites.
--- NOTE | 2025-03-08 13:27 | MHC.CM.ED ---
Patient remains in ER overflow. Repeat PT note requested from [facility]. Updated note sent. Also requesting copy of [employer] application. T/W explained javier was not available before Tuesday. [facility] in [place] is requesting 1 year of bank statements. Copy of bank statements obtained from daughter, Ranulfo. Sent to [facility]. Continue to monitor for d/c needs.
[2025-03-08 14:00] VITALS: BP 108/65; PULSE 70; RESP 16; TEMP 36.7; O2SAT 92
--- NOTE | 2025-03-08 18:53 | MHC.EDTECH ---
pt voided 550ml with the assistance of the cristian
[2025-03-08 20:43] VITALS: BP 140/70; PULSE 70; RESP 16; TEMP 36.6; O2SAT 93
[2025-03-09 05:55] VITALS: BP 144/70; PULSE 69; RESP 16; TEMP 36.1; O2SAT 93
--- NOTE | 2025-03-09 06:56 | PC.NURSE ---
patient reported 8-9/10 pain in pelvis. Provider made aware pain med had timed out and med given when reordered. She requested Ibuprofen for further pain relief and and sleeping pill. Pt slept well overnight with no s/s distress. Air loss system applied, pt educated on pressure sore prevention. She denies complaint at this time.
[2025-03-09 14:00] VITALS: BP 149/77; PULSE 84; RESP 17; TEMP 36.9; O2SAT 98
--- NOTE | 2025-03-09 14:02 | MHC.CM.PN ---
NO BED OFFERS YET FOR [facility] PENDING PT. [facility] KAR[facility] WILL BE UPLOADED FOR REVIEW ONCE OBTAINED. CM CONTINUES TO FOLLOW.
[2025-03-09 22:00] VITALS: BP 158/82; PULSE 73; RESP 16; TEMP 36.2; O2SAT 92
[2025-03-10 05:58] VITALS: BP 145/65; PULSE 70; RESP 16; TEMP 36.2; O2SAT 97
--- NOTE | 2025-03-10 10:32 | PC.NURSE ---
Pt resting quietly in room; report + decrease in pain after meds gv on previous shift; pt reports having a loose stool yesterday and decline polyeth. glycol today; no other complaints at this time; skin intact; A+OX3
[2025-03-10 13:41] VITALS: BP 110/70; PULSE 71; RESP 15; TEMP 36.6; O2SAT 93
[2025-03-10 15:17] VITALS: BP 110/70; PULSE 71; RESP 15; TEMP 36.6; O2SAT 93
[2025-03-10 21:07] VITALS: RESP 16
--- NOTE | 2025-03-10 22:11 | PC.NURSE ---
pt has coca cola from home. pt educated on impact of drinking caffeine at this time of night given she is on two sleep meds. pt states she understands. meds given, states pain is managed and needs are met at this time. VSS. call loyd in reach, bed alarm on
[2025-03-10 22:18] VITALS: BP 118/65; PULSE 68; RESP 19; TEMP 36.8; O2SAT 97
[2025-03-10 23:05] VITALS: RESP 16
[2025-03-11 05:15] VITALS: BP 129/58; PULSE 64; RESP 16; TEMP 36.4; O2SAT 95
[2025-03-11 08:55] VITALS: O2SAT 86
[2025-03-11 08:56] VITALS: BP 122/68; PULSE 77; RESP 14; TEMP 36.6; O2SAT 94
--- NOTE | 2025-03-11 12:48 | MHC.EDTECH ---
1200 mL of urine emptied from purewick canister, call loyd and bedside table within reach
[2025-03-11 14:00] VITALS: BP 112/57; PULSE 63; RESP 14; TEMP 36.4; O2SAT 94
[2025-03-11 18:10] VITALS: BP 135/65; PULSE 70; RESP 18; TEMP 36.3; O2SAT 94
[2025-03-11 21:38] VITALS: BP 152/69; PULSE 68; RESP 16; TEMP 36.3; O2SAT 96
--- NOTE | 2025-03-12 05:16 | PC.NURSE ---
late entry at approx 1999 this RN assessed pt pain level which she reported 04/03. pt appeared to be resting comfortably in bed upon entering room. pt requested PRN Dilaudid and Flexeril for pain and PRN Hydroxyzine. pt states she did not need additional tylenol/ibuprofen at this time. pt also stated to make sure Ambien will be given at the time of receiving PM meds. upon checking MAR the PRN ambien order was discontinued. reached out to covering provider Duyen YANG at that time who was able to order the ambien as a scheduled medication. at 2034 pt was medicated per sep with PRN and available PM meds. at 2121 pt was given ambien per sep once medication was verified. pt has been able to make needs known through the night and allowed to sleep. respirations even and unlabored. bed alarm is on. call loyd and belongings within reach.
[2025-03-12 05:56] VITALS: BP 148/67; PULSE 66; RESP 16; TEMP 36.6; O2SAT 93
--- NOTE | 2025-03-12 08:07 | PC.NURSE ---
Pt requested morning medications early with breakfast. Medications given per MAR. Medicated per MAR for pain with PO Dilaudid.
--- NOTE | 2025-03-12 09:00 | MHC.CM.ED ---
Patient remains in ER overflow. Copy of [employer] application obtained. Sent to facilities still following: [facility], [facility], and [facility]. Continue to monitor for d/c needs.
[2025-03-12 14:00] VITALS: BP 112/62; PULSE 68; RESP 14; TEMP 36.8; O2SAT 96
--- NOTE | 2025-03-12 15:14 | MHC.CM.ED ---
[facility] is able to offer a [facility] pending bed. MDS and [facility] PASRR Level 2 sent to [facility] and [facility]. Per Cassi at [facility], approval will be available tomorrow morning. Alexis LEDBETTER booked for 03/13 at 11am. [facility] aware. Med [facility] with chart. Patient, daughter, Russell Winchester RN and Julita YANG aware. Continue to monitor for d/c needs.
[2025-03-12 21:40] VITALS: BP 124/70; PULSE 67; RESP 18; TEMP 36.4; O2SAT 93
--- NOTE | 2025-03-12 23:46 | PC.NURSE ---
assumed care for pt at this time. pt noted to be sleeping in the bed, symmetrical rise and fall of chest and unlabored respirations noted. plan of care ongoing
[2025-03-13 04:56] VITALS: BP 126/72; PULSE 66; RESP 18; TEMP 36.2; O2SAT 94
--- NOTE | 2025-03-13 07:26 | PC.NURSE ---
Addendum entered by Era Ascencio RN 03/13/25 10:39: Reagan was discontinued and purewick implemented. Original Note: Original Note: Patient is a 69 yo female who presents s/p mechanical fall. Right superior and inferior pubic rami fractures. Right anterior acetabular column fracture. Ortho recommended NWB for 6 weeks, this is an continues to be an obstacle for rehab placement. Patiennt alert and oriented. Respirations even and non-labored. Abdomen soft, non-tender with positive bowel sounds. Reagan patent and intact, draining yellow urine. Positive pedal pulses with no edema noted. Patient has a bed at [facility] for d/c today. Patient alert and oriented. Respirations even and non-labored. Abdomen soft, non-tender with positive bowel sounds. Purewick patent and intact. Draining clear yellow urine. Positive pedal pulses with no edema noted. Original Note: Medical History Preventative health care Osteoarthritis Anemia GERD (gastroesophageal reflux disease) Depression Osteoporosis CKD (chronic kidney disease) Skin mole Right hip pain Sciatica Establishing care with new doctor, encounter for Bipolar disorder Arthritis HLD (hyperlipidemia) HTN (hypertension)
[2025-03-13 08:00] VITALS: BP 116/61; PULSE 63; RESP 14; TEMP 36.3; O2SAT 89
--- NOTE | 2025-03-13 10:40 | PC.NURSE ---
Report given to Sangita STOKES
--- NOTE | 2025-03-13 11:52 | MHC.CM.ED ---
Patient remains in ER overflow. Orthopedic follow up scheduled for 03/18 at 130pm. [facility].
[2025-03-13 12:18] VITALS: BP 116/61; PULSE 63; RESP 14; TEMP 36.3; O2SAT 94
== END 2025-03-13 12:19 ==
PROVIDERS: Physician Assistant Medical; Registered Nurse Emergency; Emergency Provider Emergency Medicine; PCP Physician Assistant Medical
DX: N18.9 Chronic kidney disease, unspecified (principal); E78.5 Hyperlipidemia, unspecified; I10 Essential (primary) hypertension; Z91.81 History of falling; W18.30XA Fall on same level, unspecified, initial encounter; Y93.9 Activity, unspecified; Y92.9 Unspecified place or not applicable; Y99.9 Unspecified external cause status; Z79.899 Other long term (current) drug therapy
CPT/HCPCS: 36415; 71045; 71275; 73502; 80048; 80053; 80076; 80307; 81001; 83880; 84484; 85025; 93005; 96372; 96374; 96375; 97110; 97161; 97530; 99285; J0131; J1171; J1650; J2270; Q9967

== ENCOUNTER → 2025-02-22 22:29 | Outpatient (BNV) | payer MEDICARE, SELFPAY | PROVIDERS: Emergency Provider Emergency Medicine; Visit Provider Radiology Diagnostic Radiology | DX: S32.511A Fracture of superior rim of right pubis, initial encounter for closed fracture (principal) | CPT/HCPCS: 73502 ==

== ENCOUNTER → 2025-03-06 15:03 | Outpatient (BNV) | payer MEDICARE, SELFPAY | PROVIDERS: Emergency Provider Emergency Medicine; PCP Physician Assistant Medical; Visit Provider Internal Medicine Cardiovascular Disease | DX: R06.02 Shortness of breath (principal) | CPT/HCPCS: 93010 ==

== ENCOUNTER → 2025-03-06 15:03 | Outpatient (BNV) | payer MEDICARE, SELFPAY | PROVIDERS: Emergency Provider Emergency Medicine; Visit Provider Radiology Body Imaging | DX: R09.02 Hypoxemia (principal); J43.2 Centrilobular emphysema; R91.8 Other nonspecific abnormal finding of lung field | CPT/HCPCS: 71045; 71275 ==

== ENCOUNTER 2025-03-18 11:47 | Outpatient (REF) | payer MEDICARE, SELFPAY ==
--- OUTSIDE RECORDS SUMMARY | 2025-03-19 12:45 | XMS_ITS | Clinical Summary ---
Author Organization [facility] Address [address] [place] [phone] Phone Care Team Providers Care Practice Physician Name Role Phone Unavailable Primary Care Provider [...] Date Smoking Tobacco: Every Day Cigarettes 1 7.1 Started: 02/23/2018 Alcohol Use Standard Drinks/Week Comments [...]
== END 2025-03-18 11:48 | disposition home or self-care (01) ==
LOC: HO.HOSX 11:47
PROVIDERS: Visit Provider Physician Assistant
DX: Z13.89 Encounter for screening for other disorder (principal)

== ENCOUNTER 2025-03-21 11:16 | Outpatient (REF) | payer MEDICARE, SELFPAY ==
--- NOTE | ~2025-03-21 | XR_ITS ---
EXAMINATION: XR PELVIS CLINICAL INFORMATION: M25.559 - Pain in unspecified hip COMPARISON: February 22, 2025. TECHNIQUE: AP view of the pelvis. FINDINGS: Fracture resulting in 5 mm gap at the base of the right superior pubic ramus into the lower aspect of the right acetabulum. No callus formation. Fractures at the right symphysis pubis/right superior pubic ramus junction without periosteal bone reaction or callus formation. Fracture at the right inferior pubic ramus without callus formation. Fractures in the left superior pubic ramus and left inferior pubic ramus without periosteal bone reaction. XR/XR pelvis 1-2V IMPRESSION: No gross healing in the right acetabular/superior pubic ramus junction fracture, right superior and inferior pubic rami fractures. Acute to subacute fractures, left superior and inferior pubic rami. Electronically signed by: Dave Neumann MD 03/21/2025 01:59 PM EDT
== END 2025-03-21 11:17 | disposition home or self-care (01) ==
LOC: HO.HOSX 11:16
PROVIDERS: Visit Provider Physical Medicine & Rehabilitation
DX: S32.591A Other specified fracture of right pubis, initial encounter for closed fracture (principal); W18.39XA Other fall on same level, initial encounter; Y93.9 Activity, unspecified; Y92.9 Unspecified place or not applicable; Y99.9 Unspecified external cause status
CPT/HCPCS: 72170; 99212

== ENCOUNTER 2025-03-21 12:12 | Outpatient (AMB) | payer MEDICARE, SELFPAY ==
--- NOTE | 2025-03-21 12:44 | MHC.OFFVIS ---
Vital Signs 03/21/25 12:53 Height 5 ft 4 in Weight 130 lb BMI 22.3 Intake Visit Reasons: FC- pubic ramus khadra, DOI 02/22/25 Intake Note: Martha is a 69 year old female who presents today for a Fracture Care visit with complaints of Pelvis Pain. Patient reports that on 02/22/25 she was kneeling attempting to raise her leg on a chair to swat a fly when she fell and landed on her bottom. She expresses going to [facility] on the same day of her fall. Expresses she is having continued pain. She is unable to bear weight without pain. When she sits her fracture pain increases. When she takes Dilaudid every 6 hours her pain goes down to a 6, without it her pain is a 9/10. 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 Allergies No Known Allergies Allergy (Verified 03/21/25 12:53) Medication List - Last Reconciled 03/21/25 by Aundrea Lee PA-C alendronate 70 mg PO ALFRED ascorbic acid (vitamin C) (Vitamin C) 500 mg PO DAILY calcium carbonate (Calcium 600) 600 mg PO DAILY cholecalciferol (vitamin D3) 25 mcg PO DAILY cyclobenzaprine 10 mg PO TID PRN diclofenac sodium 1% 2 grams topical QID PRN escitalopram oxalate 20 mg PO BEDTIME esomeprazole magnesium (Nexium 24HR) 20 mg PO DAILY hydromorphone (Dilaudid) 2 mg PO Q6H PRN hydroxyzine HCl 15 mg PO BEDTIME PRN lurasidone 80 mg PO BEDTIME magnesium 250 mg PO DAILY simvastatin 20 mg PO BEDTIME trazodone 200 mg PO BEDTIME turmeric 400 mg PO DAILY zolpidem 10 mg PO BEDTIME PRN MDD bedtime HPI HPI FC- pubic ramus khadra, DOI 02/22/25: Details: 69-year-old female presents to the office today for an injury she sustained to her pubic rami on 02/22/2025. She states she was getting up on a chair when she slipped and fell. She was seen in the emergency department where x-rays were obtained showed a right minimally displaced pubic rami fracture. She was transferred to a short-term rehab me nonweightbearing. She presents for ortho eval. [facility] Medical History History of mammogram (~11/05/21) Preventative health care Osteoarthritis Anemia GERD (gastroesophageal reflux disease) Depression Osteoporosis CKD (chronic kidney disease) Skin mole Right hip pain Sciatica Establishing care with new doctor, encounter for Bipolar disorder Arthritis HLD (hyperlipidemia) HTN (hypertension) Surgical History Hx of hernia repair Hx of colonoscopy Family History Father High blood pressure Benign tumor of skin of auricular canal, external Mother High blood pressure Abnormal lead impedance of implantable cardioverter-defibrillator Depression Social History Housing: House Alcohol intake: current Alcohol intake frequency: does not drink Patient Tobacco Use Status: Current everyday Tobacco user Advance Directives Date on File: 03/12/25 service: Yes Current occupational status: retired Cognitive needs: No Hearing needs: No Vision needs: Yes (rx glasses) Review of Systems Const All systems reviewed & are unremarkable except as noted in HPI and below Physical Exam Vital Signs: BMI result Body Mass Index 22.3 Const General: cooperative and no acute distress Orientation/consciousness: patient oriented x3 Resp Effort & Inspection: normal respiratory effort and able to speak in complete sentences Cardio Peripheral pulses: Peripheral pulses 2+ throughout Neuro General: patient oriented x3 Extrem Other: Patient has mild discomfort along the buttock region but has no pain with hip flexion or range of motion. Office Procedures AMB Fracture Care Fracture Billing Code: Fracture Billing Code Results Reviewed Results Reviewed: xrays pelvis 03/21/25 IMPRESSION: 1. Right superior and inferior pubic rami fractures. 2. Right anterior acetabular column fracture. Assessment & Plan Assessment & Plan (1) Fracture of right inferior pubic ramus: Code(s): S32.591A - Other specified fracture of right pubis, initial encounter for closed fracture Category: Medical Plan: Patient can begin 50% weight-bearing as tolerated with a walker. She will also work with physical therapy and occupational therapy for gait training and strengthening exercises. I would like to see her back in 4-6 weeks with x-rays, sooner if needed. Orders: Orders XR pelvis 1-2V Today M25.559 - Pain in unspecified hip Coding Level of Care Code Est Pt Level 3 (13070) Complex EM visit Add On G2211 Diagnoses Fracture of right inferior pubic ramus S32.591A CPT Codes Fracture Care - Fracture Billing Code: Fracture Billing Code ([id number])
[2025-03-21 12:53] VITALS: BMI 22.3
== END 2025-03-21 13:52 | disposition home or self-care (01) ==
LOC: HO.HOS 12:12
PROVIDERS: Visit Provider Physician Assistant
DX: S32.591A Other specified fracture of right pubis, initial encounter for closed fracture (principal); S32.501A Unspecified fracture of right pubis, initial encounter for closed fracture
CPT/HCPCS: 99213; G2211

== ENCOUNTER → 2025-03-21 12:33 | Outpatient (BNV) | payer MEDICARE, SELFPAY | PROVIDERS: Visit Provider Radiology Diagnostic Radiology | DX: S32.512A Fracture of superior rim of left pubis, initial encounter for closed fracture (principal) | CPT/HCPCS: 72170 ==

== ENCOUNTER 2025-05-02 08:10 | Outpatient (REF) | payer MEDICARE, SELFPAY ==
--- NOTE | ~2025-05-02 | XR_ITS ---
EXAMINATION: XR PELVIS CLINICAL INFORMATION: M25.559 - Pain in unspecified hip . COMPARISON: X-ray 03/21/2025 TECHNIQUE: AP view of the pelvis. FINDINGS: Bone mineralization is decreased. Stable position/alignment of the right acetabulum/superior pubic ramus junction fracture. Minimal callus formation. Fracture of the right pubis/right suprapubic ramus junction, stable in positioning, with ill-definition of the fracture planes. Right inferior pubic ramus fracture is stable in alignment, ill-definition of the fracture planes. Subacute fracture of the left pubis/junction with the superior pubic ramus and the left inferior pubic ramus, with mild healing changes. No new acute fracture seen. Mild bilateral hip arthritis. Mild symphysis pubis degeneration. XR/XR pelvis 1-2V IMPRESSION: Minimal healing changes of the right acetabulum/superior pubic ramus junction, right pubis/superior pubic ramus junction, right inferior pubic ramus. Healing changes in the left pubis/superior pubic ramus junction, and the left inferior pubic ramus. Electronically signed by: Juan Goodman MD 05/02/2025 01:25 PM EDT
== END 2025-05-02 08:11 | disposition home or self-care (01) ==
LOC: HO.HOSX 08:10
PROVIDERS: Visit Provider Physician Assistant
DX: S32.511D Fracture of superior rim of right pubis, subsequent encounter for fracture with routine healing (principal); S32.591D Other specified fracture of right pubis, subsequent encounter for fracture with routine healing; X58.XXXA Exposure to other specified factors, initial encounter
CPT/HCPCS: 72170; 99212

== ENCOUNTER 2025-05-02 12:50 | Outpatient (AMB) | payer MEDICARE, SELFPAY ==
--- NOTE | 2025-05-02 13:12 | A.OFFVIS_ITS ---
Vital Signs 05/02/25 13:20 Height 5 ft 4 in Weight 130 lb BMI 22.3 Intake Visit Reasons: OV- RT pubic rami fx, DOI 02/22/25 Intake Note: Martha is a 69 year old female who presents today for a follow up of right pubic rami fracture, DOI 02/22/2025. At her last visit she was instructed that she may begin 50% weight-bearing as tolerated with a walker. Recommended to work with physical therapy and occupational therapy and follow up in 4-6 weeks with x- rays. Patient reports she was discharged from PT on Tuesday. States she is doing well, states her pain has been manageable. 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 Allergies No Known Allergies Allergy (Verified 05/02/25 13:19) HPI HPI OV- RT pubic rami fx, DOI 02/22/25: Details: 69-year-old female returns to the office today for right pubic rami/acetabular junction fracture. Patient has been partial weight-bearing with a walker. She is still residing at a correction facility. She has completed physical therapy. [facility] Medical History History of mammogram (~11/05/21) Preventative health care Osteoarthritis Anemia GERD (gastroesophageal reflux disease) Depression Osteoporosis CKD (chronic kidney disease) Skin mole Right hip pain Sciatica Establishing care with new doctor, encounter for Bipolar disorder Arthritis HLD (hyperlipidemia) HTN (hypertension) Surgical History Hx of hernia repair Hx of colonoscopy Family History Father High blood pressure Benign tumor of skin of auricular canal, external Mother High blood pressure Abnormal lead impedance of implantable cardioverter-defibrillator Depression Social History Housing: House Alcohol intake: current Alcohol intake frequency: does not drink Patient Tobacco Use Status: Current everyday Tobacco user Advance Directives Date on File: 03/12/25 service: Yes Current occupational status: retired Cognitive needs: No Hearing needs: No Vision needs: Yes (rx glasses) Review of Systems Const All systems reviewed & are unremarkable except as noted in HPI and below Physical Exam Vital Signs: BMI result Body Mass Index 22.3 Const General: cooperative and no acute distress Orientation/consciousness: patient oriented x3 Resp Effort & Inspection: normal respiratory effort and able to speak in complete sentences Cardio Peripheral pulses: Peripheral pulses 2+ throughout Neuro General: patient oriented x3 Extrem Other: Patient has mild discomfort along the buttock region but has no pain with hip flexion or range of motion. Results Reviewed Results Reviewed: X-rays of the pelvis obtained in the office today and reviewed by me: IMPRESSION: 1. Right superior and inferior pubic rami fractures. 2. Right anterior acetabular column fracture. Assessment & Plan Assessment & Plan (1) Fracture of right inferior pubic ramus: Code(s): S32.591A - Other specified fracture of right pubis, initial encounter for closed fracture Category: Medical Plan Patient will remain toe-touch weight-bearing on the right lower extremity with transfers. Continue with upper body conditioning. I explained to the patient with a continued visible fracture line we want to ensure stability which is why we are making her toe-touch weight-bearing on the right lower extremity with transfers. Patient will see me back in 6-8 weeks with x-rays. Orders: Orders XR pelvis 1-2V Today M25.559 - Pain in unspecified hip Coding Level of Care Code Global (83477) Diagnoses Fracture of right inferior pubic ramus S32.591A
[2025-05-02 13:20] VITALS: BMI 22.3
== END 2025-05-02 13:40 | disposition home or self-care (01) ==
LOC: HO.HOS 12:50
PROVIDERS: Visit Provider Physician Assistant
DX: S32.591A Other specified fracture of right pubis, initial encounter for closed fracture (principal)
CPT/HCPCS: 99213

== ENCOUNTER → 2025-05-02 12:58 | Outpatient (BNV) | payer MEDICARE, SELFPAY | PROVIDERS: Visit Provider Radiology Diagnostic Ultrasound | DX: M25.551 Pain in right hip (principal) | CPT/HCPCS: 72170 ==

== ENCOUNTER 2025-05-06 14:54 | Outpatient (REF) | payer MEDICARE, SELFPAY ==
--- OUTSIDE RECORDS SUMMARY | 2025-05-06 15:35 | XMS_ITS | Clinical Summary ---
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
[2025-05-06 17:31] LABS: Cannabinoid Screen Urine Not Detected (Not Detect)
== END 2025-05-06 14:55 | disposition home or self-care (01) ==
LOC: HO.LAB 14:54
PROVIDERS: PCP Physician Assistant Medical; Visit Provider Physician Assistant Medical
DX: Z09 Encounter for follow-up examination after completed treatment for conditions other than malignant neoplasm (principal); S32.9XXD Fracture of unspecified parts of lumbosacral spine and pelvis, subsequent encounter for fracture with routine healing; M54.30 Sciatica, unspecified side; J43.9 Emphysema, unspecified; F31.9 Bipolar disorder, unspecified; G89.4 Chronic pain syndrome; Z79.891 Long term (current) use of opiate analgesic; Z79.899 Other long term (current) drug therapy; Z13.31 Encounter for screening for depression; Z13.39 Encounter for screening examination for other mental health and behavioral disorders
CPT/HCPCS: 80307; 96127; 99212

== ENCOUNTER 2025-05-06 14:54 | Outpatient (AMB) | payer MEDICARE, SELFPAY ==
[2025-05-06 14:52] VITALS: BP 126/90; PULSE 85; RESP 16; TEMP 36.1; O2SAT 94; BMI 23.9
--- NOTE | 2025-05-06 14:52 | MHC.PC.OV ---
Vital Signs 05/06/25 14:52 Height 5 ft 4 in Weight 139 lb BMI 23.9 BP 126/90 H Blood Pressure Location Rt brachial Position Sitting Respiration 16 Pulse 85 Pulse Source Pulse Oximeter Temp 96.9 F Temp Source Temporal Artery Scan Pulse Oximetry (%) 94 Oxygen Delivery Method Room Air Intake Visit Reasons: Discharged from Rehab Intake Note: Visit Reason: TCM Intake Note: Patient is here for hospital discharge follow up. Patient was discharged from [facility] on 03/13/25 and From [facility] on 05/02/2025 Insurance Adjuster Required: No Learning Support Aide: Not Required per policy Accompanied by: Self / Same As Patient Allergies No Known Allergies Allergy (Verified 05/06/25 15:15) Medication List - Last Reconciled 05/06/25 by Jewels Joseph PA-C alendronate 70 mg PO ALFRED ascorbic acid (vitamin C) (Vitamin C) 500 mg PO DAILY calcium carbonate (Calcium 600) 600 mg PO DAILY cholecalciferol (vitamin D3) 25 mcg PO DAILY cyclobenzaprine 10 mg PO TID PRN diclofenac sodium 1% 2 grams topical QID PRN escitalopram oxalate 20 mg PO BEDTIME esomeprazole magnesium (Nexium 24HR) 20 mg PO DAILY hydroxyzine HCl 15 mg PO BEDTIME PRN lurasidone 80 mg PO BEDTIME magnesium 250 mg PO DAILY simvastatin 20 mg PO BEDTIME tramadol 50 mg PO DAILY trazodone 200 mg PO BEDTIME turmeric 400 mg PO DAILY zolpidem 10 mg PO BEDTIME PRN MDD bedtime Tobacco use date assessed: 05/06/25 Dental Screening Dental Screen Date: 05/06/25 Did you have a dental visit in the last 12 months?: No Did you have a dental problem in the last 6 months where you did not have access to dental care?: No Was dental information given to patient?: No HPI HPI Comments History of Present Illness Details Patient presents to the office for a TCM visit. Date of admission: 02/22/2025 until 03/13/2025 at [facility] then transferred to [facility] from 03/13/2025 until 05/02/2025 This is a Follow-up from admission at [facility] and [facility] HPI/Hospital Course/Discharge Summary: The patient is a 69-year-old female presenting with a transitional care management appointment following discharge from a long-term. She was initially seen at [facility] on February 22, 2025, after a fall while attempting to swat a fly, resulting in a fall from a chair onto her right buttock. She did not lose consciousness or hit her head and was not on blood thinners at the time. Imaging on February 23, 2025, revealed a right superior and inferior pubic rami fracture and a right anterior acetabulum column fracture. A subsequent chest x-ray indicated emphysema, leading to a CT scan for further evaluation. The patient was held in the emergency room observation unit and later transferred to [facility] for rehabilitation on March 13, 2025. During her stay, a repeat pelvis x-ray on March 21, 2025, showed bilateral pelvic fractures with minimal healing noted on the right side and more significant healing on the left. The patient was discharged home on May 02, 2025, with a regimen of Ultram and cyclobenzaprine for pain management, replacing previous hydromorphone use. She continues to take medications for bipolar disorder, including Lurasidone, and other supplements such as vitamin D and calcium. The patient reports that her pain is managed with current medications, although her activities are limited. She has a support system involving her daughter, sister, and a friend, and is awaiting physical and occupational therapy services. Discharged to/Current Location: Home Lives with: Self Diagnosis: Right acetabulum/superior pubic ramus junction, right pubis/superior pubic ramus junction, right inferior pubic ramus. Fracture of the left pubis/junction with the superior pubic. ramus and the left inferior pubic ramus Procedures performed: No procedures New medications: flexeril 10 mg TID, Discontinued medications: Hydromorphone Change medications/dosing: Tramadol 50 mg increased from once daily to t.i.d. Pending labs: No pending lab Pending diagnostic test: No pending diagnostic Any Follow-up Labs required? No follow-up labs required Any Follow-up Diagnostic test required? No follow-up diagnostic test required How are you feeling? Patient still has pain but managed with pain medications she is taking Are you in any pain or discomfort? some pain but controlled with medications Do you have any questions about your condition or discharge instructions? not at this time Were you able to get your medications filled? yes Do you have any questions about your medications? not at this time Any referrals required? Not at this time Were you able to schedule your follow-up appointment? Yes Ortho already seen them If home health was ordered, have they contact you? No and pt is interested Any outpatient services, if so, are you scheduled? yes VNA, OT/PT Are there any additional resources like transportation you might need during her recovery? daughter helps her with this and patient can take PVTA - VNA? Yes Came Tuesday and PT/OT will be coming pt unsure exactly when - WEB ADMINISTRATOR? interested - Meals on wheels? not interested Educational need/resources: What support system do you have? Sister Lives next to her; Daughter is at her house twice daily, friend Karoline also helps frequently [facility] Medical History (Updated 05/06/25 @ 17:50 by Jewels Joseph PA-C) Hospital discharge follow-up Emphysema of lung Pelvic fracture Chronic pain syndrome History of mammogram (~11/05/21) Preventative health care Osteoarthritis Anemia GERD (gastroesophageal reflux disease) Depression Osteoporosis CKD (chronic kidney disease) Skin mole Right hip pain Sciatica Establishing care with new doctor, encounter for Bipolar disorder Arthritis HLD (hyperlipidemia) HTN (hypertension) Surgical History Hx of hernia repair Hx of colonoscopy Family History Father High blood pressure Benign tumor of skin of auricular canal, external Mother High blood pressure Abnormal lead impedance of implantable cardioverter-defibrillator Depression Social History Housing: House Alcohol intake: current Alcohol intake frequency: does not drink Patient Tobacco Use Status: Current someday Tobacco user Advance Directives Date on File: 03/12/25 service: Yes Current occupational status: retired Cognitive needs: Yes Hearing needs: No Vision needs: Yes (rx glasses) Questionnaire PHQ-9 Over the last 2 weeks, how often have you been bothered by any of the following problems? 1. Little interest or pleasure in doing things: more than half the days 2. Feeling down, depressed, or hopeless: not at all 3. Trouble falling or staying asleep, or sleeping too much: nearly every day 4. Feeling tired or having little energy: several days 5. Poor appetite or overeating: nearly every day 6. Feeling bad about yourself - or that you are a failure or have let yourself or your family down: not at all 7. Trouble concentrating on things, such as reading the newspaper or watching television: not at all 8. Moving or speaking so slowly that other people could have noticed. Or the opposite - being so fidgety or restless that you have been moving around a lot more than usual: more than half the days 9. Thoughts that you would be better off or of hurting yourself in some way: not at all Total score: 11 Depression Screening Interpretation: Positive Depression Screening Follow-up: Existing condition and In treatment Depression Screening Done: Yes 12111 - PHQ-9 Billing: Yes Source: Developed by Drs. Sarkis Seasr, Sapna Rascon, Shaggy Dutton and colleagues, with an educational glenn from [employer]. Thrive Questionnaire Date Thrive assessed: 05/06/25 I am a: Patient What is your living situation today?: I have a steady place to live Within the past 12 months, did the food you bought not last and you didn't have the money to get more?: Never true Within the past 12 months, did you worry whether your food would run out before you got money to buy more?: Never true Do you have trouble paying for medicines?: No Do you have trouble getting transportation to medical appointments?: No Do you have trouble paying your heating and electricity bill?: No Do you have trouble taking care of your child, family member or friend?: No Do you have trouble with day-to-day activities such as bathing, preparing meals, shopping, managing finances, etc.?: No Are you currently unemployed and looking for a job?: No Are you interested in more education?: No Please select the resources that you would like help with: None Currently or been in a relationship where the following occur: No concerns reported THRIVE Score: 0 AUDIT C Alcohol Use Questionnaire (AUDIT-C) 1. How often do you have a drink containing alcohol?: Never 3. How often do you have six or more drinks on one occasion?: Never Total Score: 0 Score Reviewed/Action Taken: No ABDIRAHMAN-7 AMB Questionnaire ABDIRAHMAN-7 Date ABDIRAHMAN - 7 assessed: 05/06/25 Feeling nervous, anxious, or on edge: 1 = Several days Not being able to stop or control worryin = Several days Worrying too much about different things: 1 = Several days Trouble relaxin = More than half the days Being so restless that it is hard to sit still: 0 = Not at all Becoming easily annoyed or irritable: 0 = Not at all Feeling afraid as if something awful might happen: 1 = Several days Total ABDIRAHMAN-7 score (0-4 normal; 5-9 mild; 10-14 moderate; 15-21 severe): 6 Source: Developed by Drs. Sarkis Sears, Sapna Rascon, Shaggy Dutton and colleagues, with an educational glenn from [employer]. ABDIRAHMAN-7 Assessment Billing ABDIRAHMAN-7 Assessment Tool: ABDIRAHMAN-7 Assessment 03421 Review of Systems Const Details: - Musculoskeletal: Reports pain managed with medication, denies new falls since discharge. - Respiratory: Reports no acute respiratory symptoms, emphysema noted on imaging. All systems reviewed & are unremarkable except as noted in HPI and below Physical exam (Primary Care) Vital Signs: Last Vital Signs Temp 96.9 F 05/06/25 14:52 Pulse 85 05/06/25 14:52 Resp 16 05/06/25 14:52 BP 126/90 H 05/06/25 14:52 Pulse Ox 94 05/06/25 14:52 Oxygen Delivery Method Room Air 05/06/25 14:52 Vitals signs have been reviewed. Care Plan Goal for BP management: <140/90 at Goal BMI result Body Mass Index 23.9 Normal BMI Tobacco/Smoking Status: Tobacco use Status Tobacco use date assessed 05/06/25 05/06/25 14:54 Patient Tobacco Use Status Current someday Tobacco 05/06/25 15:07 PHQ-9: PHQ-9 Score PHQ-9: Total score 11 05/06/25 15:16 Depression Screening Interpretation: Positive Depression Screening Follow-up: Existing condition and In treatment Thrive Assessment: Date of Thrive Assessment Date Thrive assessed 05/06/25 05/06/25 14:54 Currently or been in a relationship where the following occur: No concerns reported Const Other: Appearance: Alert. Oriented X3. No acute distress. Head: Normal external exam. Normocephalic. Atraumatic. Eyes: Pupils are equal, round, and reactive to light. Extraocular movements intact. Conjunctiva and sclera normal. Eyelids normal. Throat: Pharynx normal. Uvula midline. Moist mucous membranes. Neck: Normal inspection. Neck supple. Full range of motion. Cardiovascular: Normal heart rate and rhythm. Heart sound normal. No murmurs noted. Pulses normal throughout. Respiratory: No respiratory distress. Painless inspiration. Breath sounds normal. No wheezes/rales/rhonchi noted. Chest nontender. No accessory muscle usage noted or decreased air movement noted. Back:Full range of motion noted. Skin: Skin warm and dry. Normal skin color. Normal skin turgor. No rashes/lesions/lacerations noted. Extremities: Extremities exhibit normal range of motion. Neuro: Oriented X 3. No motor deficit. No sensory deficit. Reflexes normal. Results Reviewed Results Reviewed: - Imaging: X-ray on 02/23/2025 showed right superior and inferior pubic rami fracture and right anterior acetabulum column fracture. - Imaging: Chest x-ray indicated emphysema, confirmed by CT scan. - Imaging: Repeat pelvis x-ray on 03/21/2025 showed bilateral pelvic fractures with minimal healing on the right and more significant healing on the left. Coding Level of Care Code TCM High MDM <= 7 Days Complex EM visit Add On G2211 Diagnoses Pelvic fracture S32.9XXA Emphysema of lung J43.9 Sciatica M54.30 Bipolar disorder F31.9 [facility] Z00.00 Hospital discharge follow-up Z09 Additional Codes ABDIRAHMAN-7 Assessment Billing - ABDIRAHMAN-7 Assessment Tool: ABDIRAHMAN-7 Assessment 29339 ([id number]) PHQ-9 - 86528 - PHQ-9 Billing: Yes ([id number]) Time Spent (min) 60 Assessment & Plan Assessment & Plan (1) Pelvic fracture: Code(s): S32.9XXA - Fracture of unspecified parts of lumbosacral spine and pelvis, initial encounter for closed fracture Category: Medical Plan: The patient is advised to continue with pain management using Ultram and cyclobenzaprine, and to follow up with orthopedic care to monitor healing progress. Physical and occupational therapy services are planned to aid in rehabilitation and improve functional status. (2) Emphysema of lung: Code(s): J43.9 - Emphysema, unspecified Category: Medical Plan: The patient should continue to avoid respiratory irritants and follow up with pulmonary care as needed. (3) Sciatica: Code(s): M54.30 - Sciatica, unspecified side Category: Medical Plan: The patient is to continue using cyclobenzaprine for muscle relaxation and pain management. (4) Bipolar disorder: Code(s): F31.9 - Bipolar disorder, unspecified Category: Medical Plan: The patient should maintain her current medication regimen, including Lurasidone, and monitor for any mood changes. (5) Preventative health care: Code(s): Z00.00 - Encounter for general adult medical examination without abnormal findings Category: Medical Plan: The patient is to complete the Cologuard test as previously recommended for colon cancer screening. (6) Hospital discharge follow-up: Code(s): Z09 - Encounter for follow-up examination after completed treatment for conditions other than malignant neoplasm Category: Medical Plan Plan Patient was informed and verbally consented to the use of an ambient scribe for clinic note documentation during this visit. 1. Bilateral Pelvic Fractures The patient is advised to continue with pain management using Ultram and cyclobenzaprine, and to follow up with orthopedic care to monitor healing progress. Physical and occupational therapy services are planned to aid in rehabilitation and improve functional status. 2. Emphysema The patient should continue to avoid respiratory irritants and follow up with pulmonary care as needed. 3. Sciatica The patient is to continue using cyclobenzaprine for muscle relaxation and pain management. 4. Bipolar Disorder The patient should maintain her current medication regimen, including Lurasidone, and monitor for any mood changes. 5. Preventative Care: Colon Cancer Screening With Stool Test The patient is to complete the Cologuard test as previously recommended for colon cancer screening. During the visit, I discussed the importance of continuing pain management with Ultram and cyclobenzaprine for the bilateral pelvic fractures and emphasized the need for follow-up with orthopedic care to monitor healing progress. I also highlighted the necessity of avoiding respiratory irritants due to the emphysema diagnosis and recommended follow-up with pulmonary care as needed. For sciatica, I advised continuing cyclobenzaprine for muscle relaxation and pain management. Regarding bipolar disorder, I stressed the importance of maintaining the current medication regimen, including Lurasidone, and monitoring for any mood changes. Finally, I reminded the patient to complete the Cologuard test for colon cancer screening as previously recommended. Orders: Orders Drug Screen Urine Today G89.4 - Chronic pain syndrome Referrals Cologuard Test Z12.11 - Encounter for screening for malignant neoplasm of colon, Z12.12 - Encounter for screening for malignant neoplasm of rectum Medications: New cyclobenzaprine 10 mg PO TID 270 tabs 3RF 90 days Changed From tramadol 50 mg PO DAILY To tramadol 50 mg PO TID 90 tabs 0RF 30 days Patient Instructions: - Continue taking Ultram and cyclobenzaprine as prescribed for pain management. - Follow up with orthopedic care to monitor healing progress of pelvic fractures. - Avoid respiratory irritants and follow up with pulmonary care as needed for emphysema. - Maintain current medication regimen for bipolar disorder and monitor for mood changes. - Complete the Cologuard test for colon cancer screening.
--- OUTSIDE RECORDS SUMMARY | 2025-06-30 20:00 | XMS_ITS | Clinical Summary ---
Author Organization Unknown Care Team Providers Care Setup Operator Name Role Phone GENE KNOX, SHELBY Unavailable Unavailab josephine COOLEY RN, CHUCK Unavailable Unavailab josephine REYNA LPN, ANDREI Unavailable Unavailable DICKERSON [employer] BELT SANDER, CHI Unavailable Unavailable READING OT, MAYA Unavailable Unavailable WILFREDO PT, JACOBO Unavailable Unavailable Payers Payer Name Policy Type Policy Number Effective Date Expira tion Date MEDICARE.NGS.[id number] Problems Condition Name Condition Details Condition Category Status Onset Date Resolution Date Last Treatment Date Treating Clinician Comments FRACTURE OF SUPERIOR RIM OF RIGHT PUBIS, INIT FOR CLOS FX Active 2024-07 00:00: 00 Allergies, Adverse Reactions, Alerts Allergy Name Allergy Type Status Severity Reaction(s) Onset Date Inactive Date Treating Clinician Comments NO KNOWN ALLERGIES Propensity to adverse reactions Active 2024-07 010 10:22: 15 Vital Signs Vital Name Observation Time Observation Value Commen ts Temperature 2025-05-03 10:56:00.000 97.5 [degF] BMI (%) 2025-05-03 10:33:42.000 21 kg/m2 Height 2025-05-03 10:33:35.000 66 [in_us] Pulse 2025-05-03 10:56:00.000 88 /min O2 Saturation (%) 2025-05-03 10:56:00.000 96 % Respirations 2025-05-03 10:56:00.000 18 /min Weight (lbs) 2025-05-03 10:33:42.000 135 [lb_av] Systolic Blood Pressure 2025-05-03 10:56:00.000 130 mm [Hg] Diastolic Blood Pressure 2025-05-03 10:56:00.000 62 mm [Hg] Plan of Treatment Planned Activity Planned Date Details Comments Future Scheduled Test MEDICATION MANAGEMENT; RN/PATIENT SCHEDULING COORDINATOR/STRATEGIC CONSULTANT TO REVIEW MEDICATIONS FOR INTERACTIONS, EFFECTIVENESS OF DRUG THERAPY, AND SIGNS/SYMPTOMS OF ADVERSE REACTIONS. MAY INSTRUCT AND REINFORCE MEDICATION TEACHING RELATED TO THE USE OF MEDICATIONS, DOSAGE, FREQUENCY, PURPOSE, SIDE EFFECTS, AND TO REPORT COMPLICATIONS. [code = MEDICATION MANAGEMENT; RN/PATIENT SCHEDULING COORDINATOR/STRATEGIC CONSULTANT TO REVIEW MEDICATIONS FOR INTERACTIONS, EFFECTIVENESS OF DRUG THERAPY, AND SIGNS/SYMPTOMS OF ADVERSE REACTIONS. MAY INSTRUCT AND REINFORCE MEDICATION TEACHING RELATED TO THE USE OF MEDICATIONS, DOSAGE, FREQUENCY, PURPOSE, SIDE EFFECTS, AND TO REPORT COMPLICATIONS.] Future Scheduled Test RISK FOR H OSPITALIZATION; RN TO ASSESS/TEACH, STRATEGIC CONSULTANT/PATIENT SCHEDULING COORDINATOR TO OBSERVE/TEACH PATIENT/CAREGIVER ON RISK FOR HOSPITALIZATION/EMERGENCY ROOM VISITS, TEACH SIGNS AND SYMPTOMS THAT PUT PATIENT AT RISK, WHEN TO NOTIFY NURSE/PHYSICIAN OF COMPLICATIONS/DECLINE, AND WHEN TO CALL 911. [code = RISK FOR HOSPITALIZATION; RN TO ASSESS/TEACH, STRATEGIC CONSULTANT/PATIENT SCHEDULING COORDINATOR TO OBSERVE/TEACH PATIENT/CAREGIVER ON RISK FOR HOSPITALIZATION/EMERGENCY ROOM VISITS, TEACH SIGNS AND SYMPTOMS THAT PUT PATIENT AT RISK, WHEN TO NOTIFY NURSE/PHYSICIAN OF COMPLICATIONS/DECLINE, AND WHEN TO CALL 911.] Future Scheduled Test CARDIOVASC ULAR SYSTEM; RN TO ASSESS/TEACH, PATIENT SCHEDULING COORDINATOR/STRATEGIC CONSULTANT TO OBSERVE/TEACH RELATED TO ALTERED CARDIOVASCULAR STATUS TO MINIMIZE COMPLICATIONS AND REDUCE HOSPITALIZATION. [code = CARDIOVASCULAR SYSTEM; RN TO ASSESS/TEACH, PATIENT SCHEDULING COORDINATOR/STRATEGIC CONSULTANT TO OBSERVE/TEACH RELATED TO ALTERED CARDIOVASCULAR STATUS TO MINIMIZE COMPLICATIONS AND REDUCE HOSPITALIZATION.] Future Scheduled Test HYPERTENSI ON MANAGEMENT; RN TO ASSESS AND TEACH, PATIENT SCHEDULING COORDINATOR/STRATEGIC CONSULTANT TO OBSERVE AND TEACH WARNING SIGNS AND SYMPTOMS TO AVOID HOSPITALIZATION. [code = HYPERTENSION MANAGEMENT; RN TO ASSESS AND TEACH, PATIENT SCHEDULING COORDINATOR/STRATEGIC CONSULTANT TO OBSERVE AND TEACH WARNING SIGNS AND SYMPTOMS TO AVOID HOSPITALIZATION.] Future Scheduled Test RESPIRATOR Y SYSTEM MANAGEMENT; RN TO ASSESS AND TEACH, PATIENT SCHEDULING COORDINATOR/STRATEGIC CONSULTANT TO OBSERVE AND TEACH RELATED TO ALTERED RESPIRATORY STATUS TO MINIMIZE COMPLICATIONS AND REDUCE HOSPITALIZATION. SMOKER [code = RESPIRATORY SYSTEM MANAGEMENT; RN TO ASSESS AND TEACH, PATIENT SCHEDULING COORDINATOR/STRATEGIC CONSULTANT TO OBSERVE AND TEACH RELATED TO ALTERED RESPIRATORY STATUS TO MINIMIZE COMPLICATIONS AND REDUCE HOSPITALIZATION. SMOKER] Future Scheduled Test SKIN INTEG RITY RN TO ASSESS AND TEACH, PATIENT SCHEDULING COORDINATOR/STRATEGIC CONSULTANT TO OBSERVE AND TEACH INTEGUMENTARY STATUS TO IDENTIFY CHANGES AND INTERVENE TO MINIMIZE COMPLICATIONS. PROVIDE SKILLED TEACHING OF GENERAL WOUND AND SKIN CARE AND PREVENTION RELATED TO ACTUAL ALTERED SKIN INTEGRITY [code = SKIN INTEGRITY RN TO ASSESS AND TEACH, PATIENT SCHEDULING COORDINATOR/STRATEGIC CONSULTANT TO OBSERVE AND TEACH INTEGUMENTARY STATUS TO IDENTIFY CHANGES AND INTERVENE TO MINIMIZE COMPLICATIONS. PROVIDE SKILLED TEACHING OF GENERAL WOUND AND SKIN CARE AND PREVENTION RELATED TO ACTUAL ALTERED SKIN INTEGRITY] Future Scheduled Test PAIN MANAG EMENT; RN TO ASSESS AND TEACH, STRATEGIC CONSULTANT/PATIENT SCHEDULING COORDINATOR TO OBSERVE AND TEACH AND PROVIDE EDUCATION ON PAIN MANAGEMENT TECHNIQUES. [code = PAIN MANAGEMENT; RN TO ASSESS AND TEACH, STRATEGIC CONSULTANT/PATIENT SCHEDULING COORDINATOR TO OBSERVE AND TEACH AND PROVIDE EDUCATION ON PAIN MANAGEMENT TECHNIQUES.] Future Scheduled Test FALL REDUC TION MANAGEMENT; RN TO ASSESS AND OBSERVE, PATIENT SCHEDULING COORDINATOR/STRATEGIC CONSULTANT TO OBSERVE FALL RISK FACTORS AND EDUCATE PATIENT/CAREGIVER ON STRATEGIES TO MINIMIZE THE RISK OF FALLING. [code = FALL REDUCTION MANAGEMENT; RN TO ASSESS AND OBSERVE, PATIENT SCHEDULING COORDINATOR/STRATEGIC CONSULTANT TO OBSERVE FALL RISK FACTORS AND EDUCATE PATIENT/CAREGIVER ON STRATEGIES TO MINIMIZE THE RISK OF FALLING.] Goal Patient Goal - G ET STRONG, BACK TO NORMAL, BACK TO WALKING WITHOUT THE WALKER Goal Provider Goal - PATIENT/CAREGIVER TO VERBALIZE, AND CONSISTENTLY DEMONSTRATE EFFECTIVE, SAFE MANAGEMENT OF MEDICATION INCLUDING KNOWLEDGE OF EFFECTIVENESS, POTENTIAL SIDE EFFECTS AND DRUG REACTIONS AND WHEN TO CONTACT THE APPROPRIATE CARE PROVIDER. PATIENT/CAREGIVER WILL BE ABLE TO VERBALIZE UNDERSTANDING OF MEDICATION REGIMEN AND ACCURATELY TAKE MEDICATIONS PRESCRIBED WITHOUT ADVERSE EFFECTS BY EOE Goal Provider Goal - PATIENT/CAREGIVER WILL VERBALIZE UNDERSTANDING OF SIGNS AND SYMPTOMS THAT PUT THE PATIENT AT RISK FOR HOSPITALIZATION /EMERGENCY ROOM VISITS, WHEN TO NOTIFY NURSE/PHYSICIAN OF COMPLICATIONS/DECLINE AND WHEN TO CALL 911. Goal Provider Goal - PATIENT / CAREGIVER WILL VERBALIZE/DEMONSTRATE UNDERSTANDING OF MEASURES TO MANAGE ALTERED CARDIOVASCULAR STATUS BY EOE. Goal Provider Goal - PATIENT / CAREGIVER WILL VERBALIZE/DEMONSTRATE AN ABILITY TO ADHERE TO SELF-MANAGEMENT OF HTN TO MINIMIZE COMPLICATIONS AND AVOID HOSPITALIZATION BY END OF EPISODE. Goal Provider Goal - PATIENT / CAREGIVER WILL VERBALIZE/DEMONSTRATE UNDERSTANDING OF MEASURES TO MANAGE ALTERED RESPIRATORY STATUS BY END OF EPISODE. Goal Provider Goal - CHANGES IN SKIN INTEGRITY STATUS WILL BE IDENTIFIED AND REPORTED TO THE PHYSICIAN FOR PROMPT INTERVENTION. PATIENT / CAREGIVER WILL VERBALIZE/DEMONSTRATE ADEQUATE KNOWLEDGE OF INTEGUMENTARY STATUS AND APPROPRIATE MEASURES TO PROMOTE SKIN INTEGRITY AND PREVENT INJURY BY EOE Goal Provider Goal - PATIENT / CAREGIVER WILL VERBALIZE / DEMONSTRATE UNDERSTANDING OF PAIN CONTROL MEASURES BY EOE Goal Provider Goal - PATIENT/CAREGIVER WILL VERBALIZE/DEMONSTRATE UNDERSTANDING OF FALL RISK FACTORS AND IMPLEMENT STRATEGIES TO MINIMIZE FALL RISK. PATIENT/CAREGIVER WILL VERBALIZE/DEMONSTRATE AN ABILITY TO ADHERE TO FALL REDUCTION SELF-MANAGEMENT AND LIFE-STYLE CHANGES BY EOE Progress Notes Progress Notes <paragraph>[Visit Date: 2024 by CHUCK COOLEY RN]:</paragraph><paragraph>SNV FOR START OF CARE</paragraph><paragraph></paragraph><paragraph>PATIENT IS A 69-YEAR-OLD FEMALE, FULL CODE, WHO FELL AND FRACTURED HER RIGHT PELVIS AND HIP. PATIENT WAS DISCHARGED FROM [facility] YESTERDAY. PATIENT HAS ALREADY HAD A FOLLOW UP WITH [facility], PAPERWORK UPLOADED IN [employer], WHO WANTS HER TO BE PUTTING MINIMAL WEIGHT TO HER RIGHT PELVIS AND HIP. PATIENT USUALLY AMBULATES WITH NO DEVICE, BUT IS USING A FOUR WHEELED WALKER TO TRY AND TAKE PRESSURE OFF HER RIGHT HIP. PATIENT WAS QUITE FORGETFUL DURING VISIT WALKING WITHOUT IT, AND NOT OFFLOADING WHEN SHE WAS WALKING WITH IT. PATIENT LIVES ALONE, HER SISTER LIVES NEXT DOOR, AND SHE HAS A DAUGHTER NEARBY. </paragraph><paragraph></paragraph><paragraph>PATIENT'S PAST MEDICAL HISTORY INCLUDES: HTN, HLD, POLYOSTEOARTHRITUS, RIGHT SCIATICA, REPEATED FALLS, ANEMIA, INSOMNIA, GERD, AGE RELATED OSTEOPOROSIS, BIPOLAR DISORDER, ANXIETY, MAJOR DEPRESSIVE DISORDER, AND NICOTINE ADDICTION.</paragraph><paragraph></paragraph><paragraph>PATIENT WEARS GLASSES, HAS HER OWN TEETH AND HAS OCASSIONAL URINE INCONTINENCE. PATIENT REPORTS BEING CONTINENT OF BOWEL. PATIENT REPORTS SHE IS SELLING HER HOUSE AND TEMPORARILY MOVING TO [place] WITH HER SON, SHE IS UNSURE OF THE TIME FRAME. PATIENT REPORTS QUITTING SMOKING BEFORE HER HOSPITALIZATION AND STARTING WHEN SHE CAME BACK HOME. WHEN QUESTIONED WHY SHE STATED SHE PROMISED HERSELF SHE WOULD SMOKE AGAIN IF SHE MADE IT THROUGH HER ILLNESS. EDUCATED THAT SMOKING DECREASES AVAILABLE OXYGEN IN THE BLOOD, SLOWING THE HEALING PROCESS. ALSO EDUCATED PATIENT SHE COULD NOT SMOKE DURING VISITS, EXPRESSED UNDERSTANDING. PATIENT'S OVERALL SKIN IS INTACT, DRY, THIN, AND HAS POOR TURGOR. REVIEWED MEDICATIONS AND PATIENT HAS ALL MEDICATIONS IN THE HOME. PATIENT REPORTS PAIN WITH AMBULATION AND AT REST, BUT CYCLOBENZAPRINE AND TRAMADOL HELP CONTROL THE PAIN.</paragraph><paragraph></paragraph><paragraph>REVIEWED ADMISSION F[employer] AND [employer]ENTS, MAGNET, WHEN TO CALL [employer], AND WHEN TO CALL 911. PATIENT DECLINED TOUCH CALLS AT THIS TIME. REVIEWED FALL PRECAUTIONS, WEIGHTBEARING PRECAUTIONS AND IMPORTANCE OF DIET FOR HEALING. PATIENT CONTINUES TO BE HOMEBOUND DUE TO WEAKNESS, SHORTNESS OF BREATH WITH AMBULATION, AND NEEDING ASSISTANCE TO LEAVE HOME.</paragraph> Encounters Start Date/Time End Date/Time Encounter Type Admission Type Attending [facility] Department Encounter ID Discharge Date Discharge Status Discharge Condition Discharge Reason Percent Goals Met 2025-05-03 00:00:00 2025-07-01 00:00:00 Outpatient NEW ADMISSION CHUCK COOLEY [facility] [id number] 100.00
== END 2025-05-06 15:41 | disposition home or self-care (01) ==
LOC: HO.HMCSH 14:54
PROVIDERS: PCP Physician Assistant Medical; Visit Provider Physician Assistant Medical
DX: J43.9 Emphysema, unspecified (principal); F31.9 Bipolar disorder, unspecified; S32.9XXA Fracture of unspecified parts of lumbosacral spine and pelvis, initial encounter for closed fracture; M54.30 Sciatica, unspecified side; Z09 Encounter for follow-up examination after completed treatment for conditions other than malignant neoplasm

== ENCOUNTER 2025-07-04 09:24 | Outpatient (AMB) | payer MEDICARE, MEDICAID, SELFPAY ==
--- NOTE | 2025-07-04 09:32 | MHC.OFFVIS ---
Vital Signs 07/04/25 09:35 Height 5 ft 4 in Weight 139 lb BMI 23.9 Intake Visit Reasons: OV-f/u rt pubic rami/acetabular fx w xrays Intake Note: Martha is a 69 year old female who presents today for a follow up of right pubic rami fracture, DOI 02/22/2025. At her last visit patient was to remain toe-touch weight-bearing on the right lower extremity with transfers. She will follow up in 6-8 weeks with x-rays. Patient reports that she is doing well, states having a little pain however this from her sciatica. No concerns today. Allergies No Known Allergies Allergy (Verified 07/04/25 09:35) Medication List - Last Reconciled 07/04/25 by Aundrea Lee PA-C alendronate 70 mg PO ALFRED ascorbic acid (vitamin C) (Vitamin C) 500 mg PO DAILY calcium carbonate (Calcium 600) 600 mg PO DAILY cholecalciferol (vitamin D3) 25 mcg PO DAILY cyclobenzaprine 10 mg PO TID 90 days cyclobenzaprine 10 mg PO TID PRN diclofenac sodium 1% 2 grams topical QID PRN escitalopram oxalate 20 mg PO BEDTIME esomeprazole magnesium (Nexium 24HR) 20 mg PO DAILY hydroxyzine HCl 15 mg PO BEDTIME PRN lurasidone 80 mg PO BEDTIME magnesium 250 mg PO DAILY simvastatin 20 mg PO BEDTIME trazodone 200 mg PO BEDTIME turmeric 400 mg PO DAILY zolpidem 10 mg PO BEDTIME PRN MDD bedtime HPI Comments Details: History of Present Illness The patient is a 69 year old female presenting for a four-month follow-up visit for a fracture sustained on February 22. Initially, she used a wheeled walker for ambulation but is now walking independently. She denies any pain at the fracture site. The patient reports new-onset right-sided sciatica pain. She has not previously seen a provider for her sciatica. Her medical history is notable for kidney problems, which preclude the use of anti-inflammatory medications like Motrin. Social History - Functional Status: The patient previously used a wheeled walker but is now ambulatory without an assistive device. [facility] Medical History (Updated 05/06/25 @ 17:50 by Jewels Joseph PA-C) Hospital discharge follow-up Emphysema of lung Pelvic fracture Chronic pain syndrome History of mammogram (~04/14/22) Preventative health care Osteoarthritis Anemia GERD (gastroesophageal reflux disease) Depression Osteoporosis CKD (chronic kidney disease) Skin mole Right hip pain Sciatica Establishing care with new doctor, encounter for Bipolar disorder Arthritis HLD (hyperlipidemia) HTN (hypertension) Surgical History Hx of hernia repair Hx of colonoscopy Family History Father High blood pressure Benign tumor of skin of auricular canal, external Mother High blood pressure Abnormal lead impedance of implantable cardioverter-defibrillator Depression Social History Housing: House Alcohol intake: current Alcohol intake frequency: does not drink Patient Tobacco Use Status: Current someday Tobacco user Advance Directives Date on File: 03/12/25 service: Yes Current occupational status: retired Cognitive needs: Yes Hearing needs: No Vision needs: Yes (rx glasses) Review of Systems Narrative Review of Systems - Musculoskeletal: Denies pain at the fracture site, which would be in the deep groin or buttock area. - Neurological: Reports right-sided sciatica pain. Physical Exam Exam Exam: Physical Exam - General: Appears in no acute distress. - Musculoskeletal: The patient is ambulatory and walks without assistance. Vital Signs: BMI result Body Mass Index 23.9 Assessment & Plan Assessment & Plan (1) Fracture of right inferior pubic ramus: Code(s): S32.591A - Other specified fracture of right pubis, initial encounter for closed fracture Category: Medical Plan Plan 1. Other specified fracture of unspecified pubis, subsequent encounter for fracture with routine healing S32.599D The patient's fracture, sustained four months ago, is healing well, with X-rays demonstrating good callus formation. She has no pain at the fracture site. The patient is cleared to return to activities as tolerated, and no further follow-up is scheduled unless new issues arise. Discussion Notes I reviewed the patient's X-ray, which confirms her fracture is healing well with good callus formation. I advised her that she can resume activities as long as she does not experience pain in the fracture area. We also discussed her new complaint of right-sided sciatic pain. I explained that I will refer her to our manager marketing, Dr. Gilmore, for specialized treatment. For interim pain relief, I recommended Tylenol, as she cannot take anti-inflammatories due to her kidney condition. I encouraged her to continue with the sciatica exercises her physical therapist has provided. I advised her to call if anything comes up, but otherwise, no routine follow-up is needed for the fracture. Consent Patient was informed and verbally consented to the use of an ambient scribe for clinic note documentation during this visit. Orders: Orders XR pelvis 1-2V Today M25.559 - Pain in unspecified hip Coding Level of Care Code Est Pt Level 3 (76992) Add On Problem Visit Only Diagnoses Fracture of right inferior pubic ramus S32.591A
[2025-07-04 09:35] VITALS: BMI 23.9
== END 2025-07-04 09:58 | disposition home or self-care (01) ==
PROVIDERS: PCP Physician Assistant Medical; Visit Provider Physician Assistant
DX: S32.591A Other specified fracture of right pubis, initial encounter for closed fracture (principal)
CPT/HCPCS: 99213; G2211

== ENCOUNTER → 2025-07-04 09:26 | Outpatient (BNV) | payer MEDICARE, MEDICAID, SELFPAY | PROVIDERS: Visit Provider Radiology Diagnostic Radiology | DX: S32.591D Other specified fracture of right pubis, subsequent encounter for fracture with routine healing (principal) | CPT/HCPCS: 72170 ==

== ENCOUNTER 2025-07-04 09:51 | Outpatient (REF) | payer MEDICARE, SELFPAY ==
--- NOTE | ~2025-07-04 | XR_ITS ---
EXAMINATION: XR PELVIS CLINICAL INFORMATION: M25.559 - Pain in unspecified hip COMPARISON: May 02, 2025. TECHNIQUE: AP view of the pelvis. FINDINGS: Callus formation within the fractures at the symphysis pubis, inferior pubic rami, base of the right superior pubic ramus/right acetabulum. No acute fracture. The femoral head neck instability the region and proximal diaphysis are intact. XR/XR pelvis 1-2V IMPRESSION: Multiple healing fractures, pelvis. Persistent non healing fracture at the right acetabulum/superior pubic ramus junction. Electronically signed by: Dave Neumann MD 07/04/2025 09:35 AM EST
== END 2025-07-04 09:52 | disposition home or self-care (01) ==
LOC: HO.HOSX 09:51
PROVIDERS: Visit Provider Physician Assistant
DX: S32.591D Other specified fracture of right pubis, subsequent encounter for fracture with routine healing (principal); X58.XXXD Exposure to other specified factors, subsequent encounter
CPT/HCPCS: 72170